=== PATIENT | male | born 1945 | race Caucasian/White ===

== ENCOUNTER 2016-07-25 15:09 | Inpatient (IN) ==
[2016-07-25] MEDS ORDERED: Naloxone 0.4 MG/ML INJ IVP PRN (19:11)
[2016-07-25] MEDS ORDERED: D5% in Water 1,000 ML IVC PRN (19:16)
[2016-07-25] MEDS ORDERED: Dextrose Gel 15 GM PO PRN ×2 (19:16)
--- NOTE | 2016-07-25 19:17 | Internal Med History&Physical ---
Date of Encounter: 07/25/16 Time of Encounter: 19:17 Assessment and Plan (1) NSTEMI (non-ST elevated myocardial infarction) Current visit: Yes Status: Acute 1 patient has been experiencing chest pain off and on for the past 2 days the patient at the [facility]. History of coronary artery disease he states his last cardiac catheter was 10 years ago. He presently is chest pain-free no ST -T wave abnormalities noted on EKG troponin 0.194 second troponin 0.264. Patient does have history of CK D which may contribute t0 troponin elevation however patient is experiencing chest pain has a history of CAD hypertension and diabetes We will continue to cycle cardiac troponins 2 we will initiate heparin drip 3 nitroglycerin as needed for chest pain 4 consult cardiology 5 continuous cardiac monitoring 6 oxygen as needed 7 continue ASA statin BB (2) CKD (chronic kidney disease), stage III Current visit: Yes Status: Acute 1' creatinine is 1.97 unsure of baseline however he was related to when he was at the [facility] we will continue to monitor 2 avoid nephrotoxins 3 monitor intake and output daily weights (3) CHF (congestive heart failure) Current visit: Yes Status: Acute 1 echo obtained last month at the [facility] revealed normal EF with dilated left atrium. We will 2 monitor intake and output daily weights 3 low sodium diet Qualifiers: Congestive heart failure type: unspecified congestive heart failure type Congestive heart failure chronicity: chronic Qualified Code(s): I50.9 - Heart failure, unspecified (4) Diabetes Current visit: Yes Status: Acute 1 Accu-Cheks before meals and at bedtime with sliding scale insulin as well as basal goals maintain postprandial was 180 Qualifiers: Diabetes mellitus type: type 2 Diabetes mellitus complication status: with kidney complications Diabetes mellitus complication detail: with chronic kidney disease Diabetes mellitus usp insulin use: with terminal manager use Chronic kidney disease stage: stage 3 (moderate) Qualified Code(s): E11.22 - Type 2 diabetes mellitus with diabetic chronic kidney disease; N18.3 - Chronic kidney disease, stage 3 (moderate); Z79.4 - terminal clerk (current) use of insulin (5) Hypertension Current visit: No Status: Chronic 1 we will continue with home medications Colestid maintain systolic less than 140 Qualifiers: Hypertension type: essential hypertension Qualified Code(s): I10 - Essential (primary) hypertension (6) DVT prophylaxis Current visit: Yes Status: Acute 1 patient is on heparin drip Internal Medicine - H&P: HPI Chief complaint: Chest pain Admitted From: Hospital to Hospital Transfer Plans for Post Hospital Care: Home History of present illness: Mr. Elliott is a 70 year old male past medical history of hyperlipidemia and GERD CK D3 CHF peripheral vascular disease hypertension diabetes coronary disease. According to the patient he has been experiencing cough and shortness of breath he presented to the [facility] with these complaints. He was admitted and was found to have acute kidney injury potassium of 5 elevated creatinine. Thursday the patient began to experience chest pain he describes as sharp that radiated from his right elbow across his chest his left elbow. He states that pain lasted only 5 minutes and resolved on its own by he experienced chest pain again was midsternal nonradiating sharp pain. It lasted for about 20 minutes and was relieved with nitroglycerin. Cardiac enzymes were obtained and appeared to have elevated this a.m. the patient apparently had an episode of atrial fibrillation. He was transferred to this facility for further workup and evaluation. Presently the patient denies any chest pain or shortness of breath. He does not appear to be in any respiratory distress. Lung sounds are clear heart sounds S1-S2 regular with no clicks gallops murmurs noted he appears to be sinus rhythm on the monitor. He does have +1 pitting edema to lower extremities bilaterally abdomen soft nontender. He states he had a cardiac catheter proximally 10 years ago he has a history of congestive heart failure he did have echo completed at the [facility] one month ago which revealed normal EF and dilated left atrium troponins at the [facility] first was 0.194 and a second was 0.264 He is hemodynamically stable at this time. I reviewed this case with who agrees with plan Past Med Surg Social Fam HX - Past Medical History Medical history: diabetes, hypertension, renal disease Psychiatric history: no psych history - Past Surgical History Surgical History: other - Social History Smoking Status: Never smoker Smokeless Tobacco Status: No Alcohol use: rarely Drug use: none - Additional Family History Additional family history: Reviewed noncontributory Internal Medicine - H&P: Meds 0.9 % Sodium Chloride [Normal Saline Flush] 3 ml IVP BID 07/25/16 [History] Albuterol Sulfate [Albuterol Inhaler] 2 puff IH QID PRN 07/25/16 [History] Amlodipine Besylate 2.5 mg PO DAILY 07/25/16 [History] Aspirin 325 mg PO DAILY 07/25/16 [History] Atorvastatin [Lipitor] 40 mg PO HS 07/25/16 [History] Cetirizine HCl [Zyrtec] 10 mg PO DAILY 07/25/16 [History] Chlorhexidine Gluconate [Peridex] 15 ml MM BID 07/25/16 [History] Dextrose [Glucose] 16 gm PO AD PRN 07/25/16 [History] Enoxaparin [Lovenox] 120 mg SQ Q12HR 07/25/16 [History] Febuxostat [Uloric] 80 mg PO DAILY 07/25/16 [History] Finasteride [Proscar] 5 mg PO DAILY 07/25/16 [History] Folic Acid 1 mg PO DAILY 07/25/16 [History] Furosemide [Lasix] 40 mg PO QPM 07/25/16 [History] Furosemide [Lasix] 80 mg PO QAM 07/25/16 [History] Insulin ASPART [NovoLOG] 12 unit SQ QAM MDD Breakfast 07/25/16 [History] Insulin ASPART [NovoLOG] 15 unit SQ BID MDD Lunch & Dinner 07/25/16 [History] Insulin Glargine [Lantus] 30 unit SQ HS 07/25/16 [History] Insulin Glargine [Lantus] 35 unit SQ QAM 07/25/16 [History] Isosorbide MONOnitrate (24 HR) [Imdur] 30 mg PO DAILY 07/25/16 [History] Latanoprost [Xalatan] 1 drop BOTH EYES HS 07/25/16 [History] Magnesium Oxide [Mag-Ox] 400 mg PO HS 07/25/16 [History] Metoprolol Succinate 100 mg PO DAILY 07/25/16 [History] Mineral Oil/Petrolatum,White [Eucerin Creme] 1 appl TP DAILY 07/25/16 [History] Nitroglycerin [Nitrostat] 0.4 mg SL Q5M PRN 07/25/16 [History] Omeprazole [PriLOSEC] 20 mg PO BIDAC 07/25/16 [History] Sodium Polystyrene Sulfonate [Kayexalate] 15 gm PO BID 07/25/16 [History] Tamsulosin [Flomax] 0.4 mg PO DAILY 07/25/16 [History] methylPREDNISolone [Solu-MEDROL] 60 mg IVP Q6H 07/25/16 [History] Allergies pioglitazone [From Actos] Allergy (Verified 11/23/14 16:34) Swelling of Lip/Tongue/Throat vancomycin Allergy (Verified 11/23/14 16:34) Swelling of Lip/Tongue/Throat All Systems PM: A 10-system review of systems was performed and is negative for pertinent findings except as documented above in the HPI. - Constitutional Constitutional: no chills, no fever(s), no night sweats - Cardiovascular Cardiovascular ROS IM: chest pain, dyspnea, dyspnea on exertion, edema, no diaphoresis, no lightheadedness, no palpitations, no syncope - Respiratory Respiratory: cough, dyspnea on exertion - Gastrointestinal Gastrointestinal: no abdominal pain, no diarrhea, no hematemesis, no hematochezia, no melena, no nausea, no vomiting - Musculoskeletal Musculoskeletal ROS IM: no numbness, no tingling - Integumentary Integumentary IM: no rash, no unusual bruising - Neurological Neurological ROS: no confusion, no convulsions, no focal weakness, no numbness, no tingling, no tremor(s) - Hematologic/Lymphatic Hematologic/Lymphatic: no easy bruising - Constitutional Vitals: Temp Pulse Resp BP Pulse Ox 97.9 F 70 16 162/89 98 07/25/16 17:08 07/25/16 17:08 07/25/16 17:08 07/25/16 17:08 07/25/16 17:08 General appearance: Present: A&O X 3, morbidly obese - Head Head exam: Present: atraumatic, normocephalic - Eye Eye exam: Present: PERRL, conjuntiva pink, sclera anicteric Pupils: Present: PERRL - Neck Neck exam general surgery: Present: supple, trachea midline. Absent: lymphadenopathy - Respiratory Respiratory exam: Present: CTAB. Absent: accessory muscle use, rales, rhonchi, wheezes - Cardiovascular Cardiovascular exam: Present: RRR, +S1, +S2. Absent: diastolic murmur, gallop, rubs, systolic murmur - GI/Abdominal GI/Abdominal exam: Present: normal bowel sounds, soft, no peritoneal signs. Absent: distended, tenderness - Extremities Exam Extremities exam: Present: pedal edema, warm, radial pulses palpable and symetrical. Absent: calf tenderness, cyanotic - Neurological Exam Neurological exam: Present: CN II-XII intact, oriented X3, no focal deficits. Absent: pronater drift, facial droop, speech deficit - Skin Skin exam: Present: dry, intact Internal Med - H&P Results - Labs CBC & Chem 7: 07/25/16 21:36 Labs: [facility] this a.[facility]. CBC daily BC 12.3 hemoglobin 1.8 hematocrit 36.3 platelet is 172 chemistry sodium 144 potassium 4.1 chloride 108 bicarbonate 24 BUN 67 creatinine 1.97 GFR 36 glucose 223 troponin 0.264
[2016-07-25] MEDS ORDERED: *HR* Heparin 5,000 UNIT/ML VIAL IVP ONE (20:26)
[2016-07-25] MEDS ORDERED: *HR* Heparin 5,000 UNIT/ML VIAL IVP PRN ×2 (20:26)
[2016-07-25] MEDS ORDERED: Nitroglycerin 0.4 MG TAB.SUBL SL PRN (20:46)
[2016-07-25 21:44] LABS: Hematocrit 33.8 % (37.5-50.1); Hemoglobin 11.5 g/dL (12.9-16.9); Immature Platelets 2.6 % (1.1-6.1); Mean Corpuscular Hemoglobin 31.6 pg (28.0-33.3); Mean Corpuscular Volume 92.9 fL (83.0-100.0); Mean Platelet Volume 9.9 fL (9.4-12.4); Red Blood Count 3.64 M/mcL (4.19-5.50)
[2016-07-25 21:49] LABS: Prothrombin Time 11.2 Seconds (9.4-12.1)
[2016-07-25 21:52] LABS: Activated Partial Thrombo Time 24.8 Seconds (26.0-36.0)
[2016-07-25] MEDS: Insulin LISPRO 300 UNITS/3 ML VIAL SQ SCH (22:38)
[2016-07-25] MEDS: Heparin 25,000 UNIT/500 ML D5W 25,000 UNIT/500 ML MLS IVC SCH (22:50)
[2016-07-25] MEDS ORDERED: Furosemide 40 MG TABLET PO SCH (23:45)
[2016-07-25] MEDS ORDERED: NON-FORMULARY MEDICATION 1 EACH EACH (Insulin Glargine [Lantus] 30 UNIT) SQ SCH (23:45)
[2016-07-26] MEDS: Insulin DETEMIR 100 UNIT/ML X5UNITS SQ SCH ×3 (00:35→21:16)
[2016-07-26 01:23] LABS: Basophils % 0.1 %; Hematocrit 31.2 % (37.5-50.1); Hemoglobin 10.7 g/dL (12.9-16.9); Immature Granulocytes % 2.2 % (0-4); Lymphocytes # 0.7 K/mcL (0.6-4.6); Lymphocytes % 5.7 %; Mean Corpuscular HGB Conc 34.3 g/dL (31.6-35.5); Mean Corpuscular Hemoglobin 31.8 pg (28.0-33.3); Mean Corpuscular Volume 92.9 fL (83.0-100.0); Mean Platelet Volume 10.4 fL (9.4-12.4); Monocytes # 0.7 K/mcL (0.0-1.3); Monocytes % 5.9 %; Neutrophils # 10.1 K/mcL (1.6-8.9); Nucleated Red Blood Cells 0.2 /100 WBC (0); Platelet Count 171 K/mcL (140-400); Red Blood Count 3.36 M/mcL (4.19-5.50); Red Cell Distribution Width 13.2 % (11.5-14.5); Segmented Neutrophils % 86.1 %
[2016-07-26 01:37] LABS: Calcium 7.7 mg/dL (8.6-10.8); Chol/HDL Ratio 3.3 (0-4.9); Magnesium 1.2 mg/dL (1.6-2.6); Potassium 3.5 mEq/L (3.5-4.5)
[2016-07-26] MEDS: Insulin LISPRO 300 UNITS/3 ML VIAL SQ SCH ×4 (07:42→21:19)
[2016-07-26] MEDS ORDERED: amLODIPine 5 MG TABLET PO SCH (09:00)
[2016-07-26] MEDS ORDERED: NON-FORMULARY MEDICATION 1 EACH EACH (Insulin Glargine [Lantus] 35 UNIT) SQ SCH (09:00)
[2016-07-26] MEDS ORDERED: Furosemide 40 MG TABLET PO SCH (09:00)
--- NOTE | 2016-07-26 09:31 | Internal Med Progress Note ---
Date of Encounter: 07/26/16 Time of Encounter: 09:29 - Assessment and plan (1) Bronchitis Current Visit: Yes Status: Acute Assessment and plan: Patient initially presented with cough and currently does have some mild leukocytosis. It does not appear he was treated with antibiotics while hospitalized at the [facility]. Start IV Levaquin at this time. Chest x-ray shows no evidence of pneumonia. (2) PAF (paroxysmal atrial fibrillation) Current Visit: Yes Status: Acute Assessment and plan: Review of EKGs from [facility] by cardiology showed atrial fibrillation. EKG in our hospital showed sinus rhythm. Cardiology consult appreciated, recommend long- term anticoagulation. Continue IV heparin drip and beta nicolasa for now. Check 2-D echocardiogram, previous reports not available. (3) NSTEMI (non-ST elevated myocardial infarction) Current Visit: Yes Status: Acute Assessment and plan: Patient presents with chest pain along with some troponin elevation. Unclear if he does have chronic kidney disease. Could be non-ST elevation AK versus demand ischemia. Cardiology consult appreciated. Given his multiple cardiac risk factors, plan for left heart catheterization when creatinine is stable after following renal protective strategy. Continue IV hydration. Anticoagulation with IV heparin, aspirin, beta nicolasa and statin. Telemetry monitoring. Serial troponins are currently around 0.2, adynamic. (4) CKD (chronic kidney disease), stage III Current Visit: Yes Status: Chronic Assessment and plan: Patient likely has chronic kidney disease, unknown baseline serum creatinine. Currently noted to be 1.8. Hold diuretics, continue IV hydration and monitor serum creatinine closely. Avoid new nephrotoxic agents. (5) Diabetes Current Visit: Yes Status: Chronic Assessment and plan: Accu-Chek blood glucose monitoring with basal bolus insulin regimen. Check hemoglobin A1c. Diabetic diet. Qualifiers: Diabetes mellitus type: type 2 Diabetes mellitus complication status: with kidney complications Diabetes mellitus complication detail: with chronic kidney disease Diabetes mellitus manager terminal insulin use: with manager terminal use Chronic kidney disease stage: stage 3 (moderate) Qualified Code(s): E11.22 - Type 2 diabetes mellitus with diabetic chronic kidney disease; N18.3 - Chronic kidney disease, stage 3 (moderate); Z79.4 - custodial (current) use of insulin (6) Hypertension Current Visit: Yes Status: Chronic Qualifiers: Hypertension type: essential hypertension Qualified Code(s): I10 - Essential (primary) hypertension (7) Hypomagnesemia Current Visit: Yes Status: Acute Assessment and plan: Likely related to use of diuretics. Supplement with IV magnesium sulfate. Monitor closely for ventricular arrhythmias. - Subjective Interval history: Reports feeling better; has intermittent moist cough; improved chest pain; no dyspnea, diaphoresis; does have chronic leg swelling; - Constitutional Vitals: Temp Pulse Resp BP Pulse Ox 98.4 F 59 18 183/61 96 07/26/16 06:30 07/26/16 06:30 07/26/16 06:30 07/26/16 06:30 07/26/16 06:30 General appearance: Present: A&O X 3, obese, answers questions appropriately - Respiratory Respiratory exam: Present: CTAB. Absent: accessory muscle use, rales, rhonchi, wheezes - Cardiovascular Cardiovascular exam: Present: RRR, +S1, +S2. Absent: diastolic murmur, gallop, rubs, systolic murmur - GI/Abdominal GI/Abdominal exam: Present: normal bowel sounds, soft (obese), no peritoneal signs. Absent: distended, tenderness - Extremities Exam Extremities exam: Present: full ROM, pedal edema, warm, radial pulses palpable and symetrical. Absent: calf tenderness, cyanotic - Neurological Exam Neurological exam: Present: CN II-XII intact, oriented X3, no focal deficits. Absent: pronater drift, facial droop, speech deficit - Skin Skin exam: Present: dry, intact Internal Medicine: Result - Labs CBC & Chem 7: 07/26/16 00:53 07/26/16 00:53 Labs: Short CBC 07/25/16 07/26/16 Range/Units 21:36 00:53 WBC 12.2 H 11.7 H (4.3-11.1) K/mcL Hgb 11.5 L 10.7 L (12.9-16.9) g/dL Hct 33.8 L 31.2 L (37.5-50.1) % Plt Count 192 171 (140-400) K/mcL Neutrophils # 10.1 H (1.6-8.9) K/mcL BMP 07/26/16 00:53 Sodium 140 Potassium 3.5 Chloride 105 Carbon Dioxide 25 BUN 70 H Creatinine 1.82 H Glucose 166 H Calcium 7.7 L Cardiac Enzymes 06/02/17 06/03/17 06/03/17 Range/Units 19:49 00:53 06:25 Troponin I 0.20 H* 0.23 H* 0.22 H* (0-0.03) ng/mL - ABG Interpretation ABG results: PT/INR, D-dimer PT 11.2 Seconds (9.4-12.1) 07/25/16 21:36 - Impressions Impressions Chest X-Ray 07/25/16 20:28 IMPRESSION: No acute disease. D/ / Bárbara Sauer Cha, MD / Bárbara Sauer Cha, MD Interpreting Provider: Bárbara Sauer Cha, MD Consult Discharge Plan - Plan [facility]errals: [facility] Care Provider[facility] -
--- NOTE | 2016-07-26 09:49 | Cardiology Consult Note ---
Date of Encounter: 07/26/16 Time of Encounter: 09:40 Assessment and Plan (1) Elevated troponin Current Visit: Yes Status: Acute Troponins 0.26, 0.20, 0.23, 0.22--flat and adynamic in setting of FINN on CKD, elevated BP, episode of A-Fib. Demand ischemia vs. NSTEMI. Pt reports chest pain intermittently since Thursday. Episode that occurred yesterday was exertional. Reports having LHC approximately 10 years ago at [facility] without intervention. Multiple risk factors including HTN, HLD, DM, family hx of premature CAD. Pt currently on heparin gtt. Continue. No significant EKG changes. [place]16 [place] showed preserved EF, mildly dilated LA. I discussed with pt regarding medical management vs. LHC. R/B/A discussed, including risk of contrast induced nephropathy requiring dialysis. Tele reviewed--11 beat run NSVT. Pt is agreeable to risks of LHC. Recommend continued hydration, monitor renal function over upcoming days and plan for LHC in near future. Will discuss with Dr. Israel with further recommendations to follow. Continue ASA, Statin, BB, nitrates. (2) CKD (chronic kidney disease), stage III Current Visit: Yes Status: Acute Creatinine currently 1.82. Improving. Recent FINN with creatinine as high as 3.40 on 07/22/16. (3) PAF (paroxysmal atrial fibrillation) Current Visit: Yes Status: Acute New diagnosis. Confirmed on EKG at [place]. Currently SR. No evidence of recurrent PAF on tele. CHADSVASC score of at least 3 (Age, HTN, DM). Heparin gtt for now. Will recommend long term care social worker anticoagulation. Determine following potential LHC. Discussion w patient/family: The assessment and plan as outlined above was discussed with the patient and/or family members who expressed understanding and agreement. All questions were answered. Thank you for involving us in the care of your patient. Please call with any questions. I will discuss all the above with Dr. Israel and make changes as necessary. History of Present Illness Consult date: 07/26/16 Requesting physician: Dominik Johnston Consult reason: elevated troponin Chief complaint: chest pain History of present illness: Mr. Elliott is a 70 year old male with PMH of hyperlipidemia, GERD, CKD stage 3, CHF, peripheral vascular disease, hypertension, diabetes that presented in transfer from the [place]. He was admitted to [place] 07/22/16 for acute bronchitis and FINN with creatinine as high as 3.40. According to the patient he presented to the [place] with cough and shortness of breath. Thursday he began to experience chest pain at rest, described as sharp that radiated from his right elbow across his chest his left elbow. He states that pain lasted only 5 minutes and resolved on its own. he experienced the same pain. On Thursday he experienced a different pain that was midsternal, nonradiating, sharp pain that occurred on exertion. It lasted for about 20 minutes. He states he was given 3 nitro and he cannot say whether or not the nitro took the pain away. Troponin found to be elevated at 0.26. There was a reported episode of atrial fibrillation, confirmed on EKG from [place]. No hx of A-Fib previously. Troponins here 0.20, 0.23, 0.22. Pt reports having a LHC 10 years ago without intervention. Reports his father from [place] at age 44 and a brother from [place] in his 40s as well. He reports chronic pain, so it is difficult to determine how long he has been having chest pain. Echo 07/08/16 [place] showed preserved EF with normal wall motion, mildly dilated LA. Past Med Surg Social Fam HX - Past Medical History Medical history: CHF, diabetes, hypertension, renal disease Psychiatric history: no psych history - Past Surgical History Surgical History: other - Social History Smoking Status: Never smoker Smokeless Tobacco Status: No Alcohol use: rarely Drug use: none Medications and Allergies 0.9 % Sodium Chloride [Normal Saline Flush] 3 ml IVP BID 07/25/16 [History] Albuterol Sulfate [Albuterol Inhaler] 2 puff IH QID PRN 07/25/16 [History] Amlodipine Besylate 2.5 mg PO DAILY 07/25/16 [History] Aspirin 325 mg PO DAILY 07/25/16 [History] Atorvastatin [Lipitor] 40 mg PO HS 07/25/16 [History] Cetirizine HCl [Zyrtec] 10 mg PO DAILY 07/25/16 [History] Chlorhexidine Gluconate [Peridex] 15 ml MM BID 07/25/16 [History] Dextrose [Glucose] 16 gm PO AD PRN 07/25/16 [History] Enoxaparin [Lovenox] 120 mg SQ Q12HR 07/25/16 [History] Febuxostat [Uloric] 80 mg PO DAILY 07/25/16 [History] Finasteride [Proscar] 5 mg PO DAILY 07/25/16 [History] Folic Acid 1 mg PO DAILY 07/25/16 [History] Furosemide [Lasix] 40 mg PO QPM 07/25/16 [History] Furosemide [Lasix] 80 mg PO QAM 07/25/16 [History] Insulin ASPART [NovoLOG] 12 unit SQ QAM [facility] Breakfast 07/25/16 [History] Insulin ASPART [NovoLOG] 15 unit SQ BID [facility] Lunch & Dinner 07/25/16 [History] Insulin Glargine [Lantus] 30 unit SQ HS 07/25/16 [History] Insulin Glargine [Lantus] 35 unit SQ QAM 07/25/16 [History] Isosorbide MONOnitrate (24 HR) [Imdur] 30 mg PO DAILY 07/25/16 [History] Latanoprost [Xalatan] 1 drop BOTH EYES HS 07/25/16 [History] Magnesium Oxide [Mag-Ox] 400 mg PO HS 07/25/16 [History] Metoprolol Succinate 100 mg PO DAILY 07/25/16 [History] Mineral Oil/Petrolatum,White [Eucerin Creme] 1 appl TP DAILY 07/25/16 [History] Nitroglycerin [Nitrostat] 0.4 mg SL Q5M PRN 07/25/16 [History] Omeprazole [PriLOSEC] 20 mg PO BIDAC 07/25/16 [History] Sodium Polystyrene Sulfonate [Kayexalate] 15 gm PO BID 07/25/16 [History] Tamsulosin [Flomax] 0.4 mg PO DAILY 07/25/16 [History] methylPREDNISolone [Solu-MEDROL] 60 mg IVP Q6H 07/25/16 [History] Allergies pioglitazone [From Actos] Allergy (Verified 11/23/14 16:34) Swelling of Lip/Tongue/Throat vancomycin Allergy (Verified 11/23/14 16:34) Swelling of Lip/Tongue/Throat All Systems Review: A 10-system review of systems was performed and is negative for pertinent findings except as documented above in the HPI. - Cardiovascular Cardiovascular: as per HPI, chest pain at rest, chest pain with exertion, dyspnea on exertion, radiating jaw, neck or arm pain, leg edema - Respiratory Respiratory: dyspnea Physical Examination Vital Signs, Last 4 Hours Temp Pulse Resp BP Pulse Ox 07/26/16 06:30 98.4 F 59 18 183/61 96 Vital Signs Temp Pulse Resp BP Pulse Ox 07/26/16 06:30 98.4 F 59 18 183/61 96 07/26/16 04:03 98 F 70 18 141/69 95 07/26/16 00:19 98.1 F 70 18 160/74 97 07/25/16 20:27 97.7 F 70 18 177/84 97 07/25/16 19:26 91 18 94 07/25/16 17:08 97.9 F 70 16 162/89 98 Intake and Output 07/25/16 07/26/16 07/26/16 23:59 07:59 15:59 Intake Total 887 / 887 480 / 480 Output Total 1200 / 1200 980 / 980 Balance -1200 / -1200 -93 / -93 480 / 480 Intake: IV Fluids 187 / 187 Heparin 25,000 UNIT/500 187 / 187 ML D5W 25,000 unit In 500 ml @ 20 mls/hr IVC .Q24H [facility] Rx#:[id number] Oral 700 / 700 480 / 480 Output: Urine 1200 / 1200 980 / 980 Other: Meal Breakfast Percent of Meal Consumed 100% Weight 121.648 kg Blood Glucose* 230 116 General: Conversant, No Apparent Distress HEENT: Atraumatic, Normocephaly, Mucus Membranes Moist Neck: No JVD, Normal carotid pulses Cardiac: Reg Rate and Rhythm, Normal S1 and S2, No Murmur Lungs: Normal Breath Sounds, No Wheeze, Rales, Rhonchi Neuro: Alert and responsive, No focal deficits noted Abdomen: Soft, Non-Tender Skin: No rashes noted on visualized skin Musculoskeletal: No Chest Wall Tenderness Extremities: Other (1+ nonpitting edema) Results 07/26/16 00:53 07/26/16 00:53 Lab Results 07/25/16 07/25/16 07/25/16 19:49 21:36 21:36 WBC 12.2 H Hgb 11.5 L Hct 33.8 L Plt Count 192 INR 1.0 APTT 24.8 L Sodium Potassium Chloride Carbon Dioxide BUN Creatinine Glucose Calcium Magnesium Troponin I 0.20 H* 07/26/16 07/26/16 07/26/16 00:53 00:53 00:53 WBC 11.7 H Hgb 10.7 L Hct 31.2 L Plt Count 171 INR APTT Sodium 140 Potassium 3.5 Chloride 105 Carbon Dioxide 25 BUN 70 H Creatinine 1.82 H Glucose 166 H Calcium 7.7 L Magnesium 1.2 L Troponin I 0.23 H* 07/26/16 07/26/16 06:25 06:25 WBC Hgb Hct Plt Count INR APTT 72.9 H D Sodium Potassium Chloride Carbon Dioxide BUN Creatinine Glucose Calcium Magnesium Troponin I 0.22 H* Short CBC 07/26/16 07/25/16 Range/Units 00:53 21:36 WBC 11.7 H 12.2 H (4.3-11.1) K/mcL Hgb 10.7 L 11.5 L (12.9-16.9) g/dL Hct 31.2 L 33.8 L (37.5-50.1) % Plt Count 171 192 (140-400) K/mcL Neutrophils # 10.1 H (1.6-8.9) K/mcL BMP 07/26/16 Range/Units 00:53 Sodium 140 (136-145) mEq/L Potassium 3.5 (3.5-4.5) mEq/L Chloride 105 (98-109) mEq/L Carbon Dioxide 25 (19-29) mEq/L BUN 70 H (8-26) mg/dL Creatinine 1.82 H (0.72-1.25) mg/dL Glucose 166 H (70-99) mg/dL Calcium 7.7 L (8.6-10.8) mg/dL Cardiac Enzymes 07/26/16 07/26/16 07/25/16 Range/Units 06:25 00:53 19:49 Troponin I 0.22 H* 0.23 H* 0.20 H* (0-0.03) ng/mL Impressions Chest X-Ray 07/25/16 20:28 IMPRESSION: No acute disease. D/ / Bárbara Sauer Cha, MD / Bárbara Sauer Cha, MD Interpreting Provider: Bárbara Sauer Cha, MD Active Medications Amlodipine Besylate (Norvasc) 2.5 mg PO DAILY [facility] Stop: 01/25/17 09:01 Aspirin (Aspirin) 325 mg PO DAILY [facility] Stop: 01/25/17 09:01 Atorvastatin Calcium (Lipitor) 40 mg PO HS [facility] Stop: 01/25/17 21:01 Dextrose/Water (Dextrose 50% (Syg)) 25 ml IVP AD PRN PRN Reason: Hypoglycemia Stop: 01/24/17 19:17 Finasteride (Proscar) 5 mg PO DAILY [facility] PRN Reason: Protocol Stop: 01/25/17 09:01 Furosemide (Lasix) 40 mg PO QPM [facility] Stop: 01/24/17 23:46 Last Admin: 07/26/16 00:35 Dose: 40 mg Furosemide (Lasix) 80 mg PO QAM [facility] Stop: 01/25/17 09:01 Glucagon (Glucagen) 1 mg IM ONCE PRN PRN Reason: Hypoglycemia Stop: 01/24/17 19:17 Glucose (Gluctose) 15 gm PO ONCE PRN PRN Reason: Hypoglycemia Stop: 01/24/17 19:17 Glucose (Gluctose) 30 gm PO ONCE PRN PRN Reason: Hypoglycemia Stop: 01/24/17 19:17 Heparin Sodium (Porcine) (Heparin) 4,000 unit IVP Q6HR PRN PRN Reason: SEE COMMENTS Stop: 01/24/17 20:27 Heparin Sodium (Porcine) (Heparin) 2,000 unit IVP Q6H PRN PRN Reason: SEE COMMENTS Stop: 01/24/17 20:27 Dextrose (Dextrose 5%) 1,000 mls @ 100 mls/hr IVC .Q10H PRN PRN Reason: HYPOGLYCEMIA Stop: 01/24/17 19:17 Heparin Sodium/Dextrose (Heparin 25,000 Unit/500 Ml D5w) 25,000 unit in 500 mls @ 20 mls/hr IVC .Q24H [facility] PRN Reason: Protocol Stop: 01/24/17 20:31 Last Titration: 07/26/16 07:14 Dose: 20 mls/hr, 20 mls/hr Levofloxacin/Dextrose (Levaquin Premix 500mg/100ml) 500 mg in 100 mls @ 100 mls /hr IVPB Q48H [facility] PRN Reason: Protocol Stop: 01/25/17 10:01 Insulin Detemir (Levemir) 30 unit SQ HS [facility] Stop: 01/24/17 23:46 Last Admin: 07/26/16 00:35 Dose: 30 unit Insulin Detemir (Levemir) 35 unit SQ QAM [facility] Stop: 01/25/17 09:01 Insulin Human Lispro (Humalog) 0 units SQ HS [facility] PRN Reason: Protocol Stop: 01/24/17 21:01 Last Admin: 07/25/16 22:38 Dose: 3 units Insulin Human Lispro (Humalog) 0 units SQ TIDAC [facility] PRN Reason: Protocol Stop: 01/25/17 07:31 Last Admin: 07/26/16 07:42 Dose: Not Given Isosorbide Mononitrate (Imdur) 30 mg PO DAILY [facility] Stop: 01/25/17 09:01 Loratadine (Claritin) 10 mg PO DAILY [facility] Stop: 01/25/17 09:01 Metoprolol Succinate (Toprol Xl) 100 mg PO DAILY [facility] Stop: 01/25/17 09:01 Naloxone HCl (Narcan) 0.4 mg IVP Q2MIN PRN PRN Reason: Opioid Reversal Stop: 01/24/17 19:12 Nitroglycerin (Nitroglycerin) 0.4 mg SL Q5MIN PRN PRN Reason: Chest Pain Stop: 01/24/17 20:47 Tamsulosin HCl (Flomax) 0.4 mg PO HS [facility] PRN Reason: Protocol Stop: 01/25/17 21:01 - Imaging and Cardiology Echo: report reviewed - EKG Interpretation EKG results cardiology: personally reviewed (SR with no significant changes noted. [facility].), other (24 hour tele AVG HR 66, SR, 11 beat run NSVT) Consult Discharge Plan - Plan Referrals: [facility],PC[facility] [Primary Care Provider] -
[2016-07-26] MEDS: Isosorbide MONOnitrate (24 HR) 30 MG TAB.ER.24H PO SCH (10:35)
[2016-07-26] MEDS: Metoprolol XL (24 HR) Succ 50 MG TAB.ER.24H PO SCH (10:35)
[2016-07-26] MEDS: Aspirin 325 MG TABLET PO SCH (10:35)
[2016-07-26] MEDS: Loratadine 10 MG TABLET PO SCH (10:35)
[2016-07-26] MEDS: Finasteride 5 MG TABLET PO SCH (10:36)
[2016-07-26] MEDS: Levofloxacin 500 MG/100 ML 500 MG/100 ML BAG IVPB SCH (11:33)
[2016-07-26] MEDS ORDERED: Magnesium Sulfate 2 GM in D5% in Water 100 ML IVPB ONE (14:20)
[2016-07-26] MEDS: Heparin 25,000 UNIT/500 ML D5W 25,000 UNIT/500 ML MLS IVC SCH (21:28)
[2016-07-27 04:57] LABS: Basophils # 0.1 K/mcL (0.0-0.2); Basophils % 0.6 %; Eosinophils # 0.1 K/mcL (0.0-0.6); Eosinophils % 1.1 %; Hematocrit 33.4 % (37.5-50.1); Hemoglobin 11.5 g/dL (12.9-16.9); Immature Granulocytes % 3.9 % (0-4); Lymphocytes # 2.1 K/mcL (0.6-4.6); Lymphocytes % 23.5 %; Mean Corpuscular HGB Conc 34.4 g/dL (31.6-35.5); Mean Corpuscular Hemoglobin 32.1 pg (28.0-33.3); Mean Corpuscular Volume 93.3 fL (83.0-100.0); Mean Platelet Volume 10.5 fL (9.4-12.4); Neutrophils # 5.4 K/mcL (1.6-8.9); Nucleated Red Blood Cells 0.2 /100 WBC (0); Platelet Count 149 K/mcL (140-400); Red Blood Count 3.58 M/mcL (4.19-5.50); Segmented Neutrophils % 59.9 %
[2016-07-27 05:11] LABS: Calcium 7.6 mg/dL (8.6-10.8); Magnesium 1.6 mg/dL (1.6-2.6); Potassium 3.4 mEq/L (3.5-4.5)
[2016-07-27] MEDS: *HR* Dextrose 50 % in Water (Syg) 50 ML SYRINGE IVP PRN (06:05)
[2016-07-27] MEDS ORDERED: Potassium Chloride Elixir 20 MEQ/15 ML UDC PO ONE (08:21)
[2016-07-27] MEDS ORDERED: 0.9 % Sodium Chloride 1,000 ML IVC SCH (08:30)
[2016-07-27] MEDS: Insulin LISPRO 300 UNITS/3 ML VIAL SQ SCH ×4 (08:51→21:43)
[2016-07-27] MEDS: Loratadine 10 MG TABLET PO SCH (09:02)
[2016-07-27] MEDS: Insulin DETEMIR 100 UNIT/ML X5UNITS SQ SCH (09:03)
[2016-07-27] MEDS: Isosorbide MONOnitrate (24 HR) 30 MG TAB.ER.24H PO SCH (09:03)
[2016-07-27] MEDS: Finasteride 5 MG TABLET PO SCH (09:03)
[2016-07-27] MEDS: Metoprolol XL (24 HR) Succ 50 MG TAB.ER.24H PO SCH (09:03)
[2016-07-27] MEDS: Aspirin 325 MG TABLET PO SCH (09:03)
[2016-07-27] MEDS: amLODIPine 5 MG TABLET PO SCH (09:03)
--- NOTE | 2016-07-27 09:11 | Internal Med Progress Note ---
Date of Encounter: 07/27/16 Time of Encounter: 08:40 - Assessment and plan (1) Bronchitis Current Visit: Yes Status: Acute Assessment and plan: Improved cough and it is all leukocytosis. Continue IV Levaquin. Chest x-ray shows no evidence of pneumonia. (2) PAF (paroxysmal atrial fibrillation) Current Visit: Yes Status: Acute Assessment and plan: Review of EKGs from [place] by cardiology showed atrial fibrillation. EKG in our hospital showed sinus rhythm. Cardiology follow-up appreciated, recommend long- term anticoagulation after discussion regarding left heart catheterization. Continue IV heparin drip and beta nicolasa for now. Echocardiogram reviewed, shows preserved ejection fraction, mild concentrate left ventricular hypertrophy , mild left ventricular diastolic dysfunction, moderate to severe left atrial dilation. (3) NSTEMI (non-ST elevated myocardial infarction) Current Visit: Yes Status: Acute Assessment and plan: Patient presents with chest pain along with some troponin elevation. Could be non-ST elevation HI versus demand ischemia. Cardiology follow-up appreciated. Would benefit from left heart catheterization when creatinine is stable after following renal protective strategy. Continue IV hydration. Anticoagulation with IV heparin, aspirin, beta nicolasa and statin. Telemetry monitoring. (4) CKD (chronic kidney disease), stage III Current Visit: Yes Status: Chronic Assessment and plan: Patient likely has chronic kidney disease, unknown baseline serum creatinine. Serum creatinine noted to be slightly worsening, 2.1 today. Continue to Hold diuretics, continue IV hydration and monitor serum creatinine closely. Avoid new nephrotoxic agents. (5) Diabetes Current Visit: Yes Status: Chronic Assessment and plan: Accu-Chek blood glucose monitoring with basal bolus insulin regimen. Had an episode of hypoglycemia with blood sugar in the 50s this morning, will decrease nighttime dose of basal insulin. Check hemoglobin A1c. Diabetic diet. 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 - Subjective Interval history: Sitting up in chair; reports feeling well; no chest pain, dyspnea; persistent leg swelling even at baseline. - Constitutional Vitals: Temp Pulse Resp BP Pulse Ox 97.5 F L 58 18 172/72 97 07/27/16 06:31 07/27/16 06:31 07/27/16 06:31 07/27/16 06:31 07/27/16 06:31 General appearance: Present: A&O X 3, morbidly obese, answers questions appropriately - Respiratory Respiratory exam: Present: CTAB. Absent: accessory muscle use, rales, rhonchi, wheezes - Cardiovascular Cardiovascular exam: Present: RRR, +S1, +S2. Absent: diastolic murmur, gallop, rubs, systolic murmur - GI/Abdominal GI/Abdominal exam: Present: normal bowel sounds, soft, no peritoneal signs. Absent: distended, tenderness - Extremities Exam Extremities exam: Present: pedal edema, warm, radial pulses palpable and symetrical. Absent: calf tenderness, cyanotic Internal Medicine: Result - Labs CBC & Chem 7: 07/27/16 04:07 07/27/16 04:07 Labs: Short CBC 07/27/16 Range/Units 04:07 WBC 9.0 (4.3-11.1) K/mcL Hgb 11.5 L (12.9-16.9) g/dL Hct 33.4 L (37.5-50.1) % Plt Count 149 (140-400) K/mcL Neutrophils # 5.4 (1.6-8.9) K/mcL BMP 07/27/16 04:07 Sodium 139 Potassium 3.4 L Chloride 103 Carbon Dioxide 27 BUN 70 H Creatinine 2.13 H Glucose 68 L Calcium 7.6 L - ABG Interpretation ABG results: PT/INR, D-dimer PT 11.2 Seconds (9.4-12.1) 07/25/16 21:36 Consult Discharge Plan - Plan [facility]errals: [facility] [Primary Care Provider] -
--- NOTE | 2016-07-27 09:53 | Cardiology Progress Note ---
Date of Encounter: 07/27/16 Time of Encounter: 09:51 Assessment and Plan (1) Elevated troponin Current Visit: Yes Status: Acute Troponins 0.26, 0.20, 0.23, 0.22--flat and adynamic in setting of FINN on CKD, elevated BP, episode of A-Fib. Demand ischemia vs. NSTEMI. Pt reports chest pain intermittently since Thursday. Multiple risk factors including HTN, HLD, DM, family hx of premature CAD. Pt currently on heparin gtt. Continue. No significant EKG changes. Echo EF 60-65%, mild concentric LVH, mild diastolic dysfunction, moderate- severely dilated left atrium. I discussed with pt regarding medical management vs. LHC. R/B/A discussed, including risk of contrast induced nephropathy requiring dialysis. Pt is agreeable to risks of LHC. Creatinine worsened today--2.13 from 1.82. Recommend continued hydration, check renal function in AM to determine if able to proceed with LHC. Continue ASA, Statin, BB, nitrates. Continue to follow. (2) CKD (chronic kidney disease), stage III Current Visit: Yes Status: Chronic Creatinine worsened from yesterday--2.13 from 1.82. FINN with creatinine as high as 3.40 on 07/22/16. Will give IV hydration. (3) PAF (paroxysmal atrial fibrillation) Current Visit: Yes Status: Acute New diagnosis. Confirmed on EKG at [place]. Currently SR. No evidence of recurrent PAF on tele. CHADSVASC score of at least 3 (Age, HTN, DM). Heparin gtt for now. Will discuss need for fci anticoagulation following potential LHC. Discussion w patient/family: The assessment and plan as outlined above was discussed with the patient and/or family members who expressed understanding and agreement. All questions were answered. Thank you for involving us in the care of your patient. Please call with any questions. I will discuss all the above with Dr. Israel and make changes as necessary. Subjective Principal diagnosis: Chest pain, elevated troponin, CKD Interval history: Pt reports episode of chest pain this AM that lasted minutes and resolved on its own. Echo shows preserved EF 60-65%, mild concentric LVH, mild diastolic dysfunction, moderate-severely dilated left atrium. Creatinine worsened today-- 2.13, was 1.82 yesterday. Objective Vital Signs, Last 4 Hours Temp Pulse Resp BP Pulse Ox 06/04/17 06:31 97.5 F L 58 18 172/72 97 Vital Signs Temp Pulse Resp BP Pulse Ox 07/27/16 06:31 97.5 F L 58 18 172/72 97 07/27/16 04:13 97.7 F 62 16 155/56 94 07/27/16 00:11 98.5 F 60 16 175/70 07/26/16 19:28 98.4 F 60 16 153/68 97 07/26/16 15:28 98.4 F 60 18 172/73 94 07/26/16 10:38 98.3 F 62 18 135/56 95 Intake and Output 07/26/16 07/27/16 07/27/16 23:59 07:59 15:59 Intake Total 877 / 877 0 / 0 360 / 360 Output Total 850 / 850 1000 / 1000 Balance -1000 / -1000 360 / 360 Intake: IV Fluids 177 / 177 Heparin 25,000 UNIT/500 177 / 177 ML D5W 25,000 unit In 500 ml @ 20 mls/hr IVC .Q24H [facility] Rx#:[id number] Oral 700 / 700 0 / 0 360 / 360 Output: Urine 850 / 850 1000 / 1000 Other: Meal Breakfast Percent of Meal Consumed 100% Weight 128.423 kg 127.913 kg Blood Glucose* 157 83 Patient Weight 07/27/16 23:59 Weight 127.913 kg General: Conversant, No Apparent Distress HEENT: Atraumatic, Normocephaly, Mucus Membranes Moist Neck: No JVD, Normal carotid pulses Cardiac: Reg Rate and Rhythm, Normal S1 and S2, No Murmur Lungs: Normal Breath Sounds, No Wheeze, Rales, Rhonchi Neuro: Alert and responsive, No focal deficits noted Abdomen: Soft, Non-Tender Skin: No rashes noted on visualized skin Musculoskeletal: No Chest Wall Tenderness Extremities: Other (1+ nonpitting LE edema) Results 07/27/16 04:07 07/27/16 04:07 Lab Results 07/26/16 07/27/16 07/27/16 13:25 04:07 04:07 WBC 9.0 Hgb 11.5 L Hct 33.4 L Plt Count 149 APTT 59.8 H Sodium 139 Potassium 3.4 L Chloride 103 Carbon Dioxide 27 BUN 70 H Creatinine 2.13 H Glucose 68 L Calcium 7.6 L Magnesium 1.6 Short CBC 07/27/16 Range/Units 04:07 WBC 9.0 (4.3-11.1) K/mcL Hgb 11.5 L (12.9-16.9) g/dL Hct 33.4 L (37.5-50.1) % Plt Count 149 (140-400) K/mcL Neutrophils # 5.4 (1.6-8.9) K/mcL BMP 07/27/16 Range/Units 04:07 Sodium 139 (136-145) mEq/L Potassium 3.4 L (3.5-4.5) mEq/L Chloride 103 (98-109) mEq/L Carbon Dioxide 27 (19-29) mEq/L BUN 70 H (8-26) mg/dL Creatinine 2.13 H (0.72-1.25) mg/dL Glucose 68 L (70-99) mg/dL Calcium 7.6 L (8.6-10.8) mg/dL Active Medications Amlodipine Besylate (Norvasc) 5 mg PO DAILY [facility] Stop: 01/25/17 08:26 Last Admin: 07/27/16 09:03 Dose: 5 mg Aspirin (Aspirin) 325 mg PO DAILY [facility] Stop: 01/25/17 09:01 Last Admin: 07/27/16 09:03 Dose: 325 mg Atorvastatin Calcium (Lipitor) 40 mg PO HS [facility] Stop: 01/25/17 21:01 Last Admin: 07/26/16 21:16 Dose: 40 mg Dextrose/Water (Dextrose 50% (Syg)) 25 ml IVP AD PRN PRN Reason: Hypoglycemia Stop: 01/24/17 19:17 Last Admin: 07/27/16 06:05 Dose: 25 ml Finasteride (Proscar) 5 mg PO DAILY [facility] PRN Reason: Protocol Stop: 01/25/17 09:01 Last Admin: 07/27/16 09:03 Dose: 5 mg Glucagon (Glucagen) 1 mg IM ONCE PRN PRN Reason: Hypoglycemia Stop: 01/24/17 19:17 Glucose (Gluctose) 15 gm PO ONCE PRN PRN Reason: Hypoglycemia Stop: 01/24/17 19:17 Glucose (Gluctose) 30 gm PO ONCE PRN PRN Reason: Hypoglycemia Stop: 01/24/17 19:17 Heparin Sodium (Porcine) (Heparin) 4,000 unit IVP Q6HR PRN PRN Reason: SEE COMMENTS Stop: 01/24/17 20:27 Heparin Sodium (Porcine) (Heparin) 2,000 unit IVP Q6H PRN PRN Reason: SEE COMMENTS Stop: 01/24/17 20:27 Hydralazine HCl (Hydralazine) 25 mg PO Q8HR [facility] Stop: 01/26/17 16:01 Dextrose (Dextrose 5%) 1,000 mls @ 100 mls/hr IVC .Q10H PRN PRN Reason: HYPOGLYCEMIA Stop: 01/24/17 19:17 Heparin Sodium/Dextrose (Heparin 25,000 Unit/500 Ml D5w) 25,000 unit in 500 mls @ 20 mls/hr IVC .Q24H [facility] PRN Reason: Protocol Stop: 01/24/17 20:31 Last Admin: 07/26/16 21:28 Dose: 20 mls/hr, 20 mls/hr Levofloxacin/Dextrose (Levaquin Premix 500mg/100ml) 500 mg in 100 mls @ 100 mls /hr IVPB Q48H [facility] PRN Reason: Protocol Stop: 01/25/17 10:01 Last Admin: 07/26/16 11:33 Dose: 100 mls/hr Sodium Chloride (0.9 % Sodium Chloride) 1,000 mls @ 60 mls/hr IVC .[id number] [facility] Stop: 07/28/16 01:09 Last Admin: 07/27/16 09:03 Dose: 60 mls/hr Insulin Detemir (Levemir) 30 unit SQ HS [facility] Stop: 01/24/17 23:46 Last Admin: 07/26/16 21:16 Dose: 30 unit Insulin Detemir (Levemir) 35 unit SQ QAM [facility] Stop: 01/25/17 09:01 Last Admin: 07/27/16 09:03 Dose: 35 unit Insulin Human Lispro (Humalog) 0 units SQ HS [facility] PRN Reason: Protocol Stop: 01/24/17 21:01 Last Admin: 07/26/16 21:19 Dose: Not Given Insulin Human Lispro (Humalog) 0 units SQ TIDAC [facility] PRN Reason: Protocol Stop: 01/25/17 07:31 Last Admin: 07/27/16 08:51 Dose: Not Given Isosorbide Mononitrate (Imdur) 30 mg PO DAILY [facility] Stop: 01/25/17 09:01 Last Admin: 07/27/16 09:03 Dose: 30 mg Loratadine (Claritin) 10 mg PO DAILY [facility] Stop: 01/25/17 09:01 Last Admin: 07/27/16 09:02 Dose: 10 mg Metoprolol Succinate (Toprol Xl) 100 mg PO DAILY [facility] Stop: 01/25/17 09:01 Last Admin: 07/27/16 09:03 Dose: Not Given Naloxone HCl (Narcan) 0.4 mg IVP Q2MIN PRN PRN Reason: Opioid Reversal Stop: 01/24/17 19:12 Nitroglycerin (Nitroglycerin) 0.4 mg SL Q5MIN PRN PRN Reason: Chest Pain Stop: 01/24/17 20:47 Tamsulosin HCl (Flomax) 0.4 mg PO HS [facility] PRN Reason: Protocol Stop: 01/25/17 21:01 Last Admin: 07/26/16 21:16 Dose: 0.4 mg - Imaging and Cardiology Echo: report reviewed - EKG Interpretation EKG results cardiology: other (24 hour tele AVG HR 60--no significant pauses or arrhythmias noted.) Consult Discharge Plan - Plan [facility]errals: [facility] [Primary Care Provider] -
[2016-07-27] MEDS ORDERED: Magnesium Sulfate 2 GM in D5% in Water 100 ML IVPB ONE (10:09)
[2016-07-27] MEDS: 0.9 % Sodium Chloride 1,000 ML IVC SCH (11:57)
[2016-07-27] MEDS: hydrALAZINE 25 MG TABLET PO SCH (16:37)
[2016-07-27] MEDS ORDERED: Insulin DETEMIR 100 UNIT/ML X5UNITS SQ SCH (21:00)
[2016-07-27] MEDS: Heparin 25,000 UNIT/500 ML D5W 25,000 UNIT/500 ML MLS IVC SCH (21:43)
[2016-07-28] MEDS: hydrALAZINE 25 MG TABLET PO SCH ×4 (00:08→16:54)
[2016-07-28] MEDS: 0.9 % Sodium Chloride 1,000 ML IVC SCH ×2 (00:09→21:59)
[2016-07-28 05:59] LABS: Hemoglobin A1C 7.9 %
[2016-07-28 06:01] LABS: Calcium 7.7 mg/dL (8.6-10.8); Magnesium 1.8 mg/dL (1.6-2.6); Potassium 3.9 mEq/L (3.5-4.5)
[2016-07-28 06:23] LABS: Thyroid Stimulating Hormone 2.447 mcIU/mL (0.350-4.840)
[2016-07-28 06:30] LABS: Heparin anti-factor XA UFH 1.08 IU/mL (0.30-0.70)
[2016-07-28] MEDS: *HR* Dextrose 50 % in Water (Syg) 50 ML SYRINGE IVP PRN (07:42)
--- NOTE | 2016-07-28 08:04 | Electrocardiograph Report ---
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
[2016-07-28] MEDS: Insulin LISPRO 300 UNITS/3 ML VIAL SQ SCH ×4 (08:27→22:25)
[2016-07-28] MEDS: Aspirin 325 MG TABLET PO SCH (08:28)
[2016-07-28] MEDS: Finasteride 5 MG TABLET PO SCH (08:28)
[2016-07-28] MEDS: Loratadine 10 MG TABLET PO SCH (08:29)
[2016-07-28] MEDS: Isosorbide MONOnitrate (24 HR) 30 MG TAB.ER.24H PO SCH ×2 (08:29→12:33)
[2016-07-28] MEDS: Levofloxacin 500 MG/100 ML 500 MG/100 ML BAG IVPB SCH (08:30)
[2016-07-28] MEDS: Metoprolol XL (24 HR) Succ 50 MG TAB.ER.24H PO SCH (08:30)
[2016-07-28] MEDS: Insulin DETEMIR 100 UNIT/ML X5UNITS SQ SCH (08:30)
[2016-07-28] MEDS: amLODIPine 5 MG TABLET PO SCH (08:30)
[2016-07-28] MEDS ORDERED: Albuterol 2.5 MG/3 ML NEBULIZER IH PRN (09:04)
--- NOTE | 2016-07-28 09:04 | Internal Med Progress Note ---
Date of Encounter: 07/28/16 Time of Encounter: 09:02 - Assessment and plan (1) Bronchitis Current Visit: Yes Status: Acute Assessment and plan: Improve; Continue IV Levaquin- day 3, to be stopped after 5 days of therapy. PRN bronchodilators. Chest x-ray shows no evidence of pneumonia. (2) PAF (paroxysmal atrial fibrillation) Current Visit: Yes Status: Acute Assessment and plan: Review of EKGs from ID by cardiology showed atrial fibrillation. EKG in our hospital showed sinus rhythm. Cardiology follow-up appreciated, recommend long- term anticoagulation; has been on IV heparin drip. Plan for oral anticoagulation after left heart catheterization today. Continue beta nicolasa for now. Echocardiogram shows preserved ejection fraction, mild concentrate left ventricular hypertrophy, mild left ventricular diastolic dysfunction, moderate to severe left atrial dilation. (3) NSTEMI (non-ST elevated myocardial infarction) Current Visit: Yes Status: Acute Assessment and plan: Patient presents with chest pain along with some troponin elevation. Could be non-ST elevation CA versus demand ischemia. Cardiology follow-up appreciated. Plan for left heart catheterization today, will follow report. Serum creatinine noted to be improving with IV hydration. Continue IV hydration. Anticoagulation with IV heparin, aspirin, beta nicolasa and statin. Telemetry monitoring. (4) CKD (chronic kidney disease), stage III Current Visit: Yes Status: Chronic Assessment and plan: Patient likely has chronic kidney disease, unknown baseline serum creatinine. Serum creatinine noted to be improving, 1.7 today. Plan to discontinue IV hydration after left heart catheterization. Continue to Hold diuretics, and monitor serum creatinine closely. Avoid new nephrotoxic agents. (5) Diabetes Current Visit: Yes Status: Chronic Assessment and plan: Accu-Chek blood glucose monitoring with basal bolus insulin regimen. Continues to have fasting hypoglycemia, we will hold basal insulin for now. Hemoglobin A1c noted to be 7.9%. Diabetic diet. Qualifiers: Diabetes mellitus type: type 2 Diabetes mellitus complication status: with kidney complications Diabetes mellitus complication detail: with chronic kidney disease Diabetes mellitus shelter insulin use: with intermission coordinator use Chronic kidney disease stage: stage 3 (moderate) Qualified Code(s): E11.22 - Type 2 diabetes mellitus with diabetic chronic kidney disease; N18.3 - Chronic kidney disease, stage 3 (moderate); Z79.4 - group home (current) use of insulin (6) Hypertension Current Visit: Yes Status: Chronic Qualifiers: Hypertension type: essential hypertension Qualified Code(s): I10 - Essential (primary) hypertension (7) Hypomagnesemia Current Visit: Yes Status: Resolved - Subjective Interval history: No chest pain or dyspnea but reports weakness due to low blood sugar reading this morning; worsening lef swelling; plan for heart cath today; on IV Heparin drip; - Constitutional Vitals: Temp Pulse Resp BP Pulse Ox 97.6 F 61 16 113/49 95 07/28/16 07:23 07/28/16 07:23 07/28/16 07:23 07/28/16 07:23 07/28/16 07:23 General appearance: Present: A&O X 3, morbidly obese, answers questions appropriately - Respiratory Respiratory exam: Present: wheezes (end-expiratory wheezing). Absent: accessory muscle use, rales, rhonchi - Cardiovascular Cardiovascular exam: Present: RRR, +S1, +S2. Absent: diastolic murmur, gallop, rubs, systolic murmur - GI/Abdominal GI/Abdominal exam: Present: normal bowel sounds, soft (obese), no peritoneal signs. Absent: distended, tenderness - Extremities Exam Extremities exam: Present: full ROM, pedal edema (3+ pitting tense peda edema B/ L), warm, radial pulses palpable and symetrical. Absent: calf tenderness, cyanotic - Neurological Exam Neurological exam: Present: CN II-XII intact, oriented X3, no focal deficits. Absent: pronater drift, facial droop, speech deficit Internal Medicine: Result - Labs CBC & Chem 7: 07/27/16 04:07 07/28/16 05:38 Labs: BMP 07/28/16 05:38 Sodium 139 Potassium 3.9 Chloride 109 Carbon Dioxide 25 BUN 62 H Creatinine 1.69 H Glucose 58 L Calcium 7.7 L - ABG Interpretation ABG results: PT/INR, D-dimer PT 11.2 Seconds (9.4-12.1) 07/25/16 21:36 Consult Discharge Plan - Plan [facility]errals: [facility] [Primary Care Provider[facility] -
--- NOTE | 2016-07-28 09:12 | Event Note ---
Date of Encounter: 07/28/16 Time of Encounter: 09:07 - Cardiology Event Note Renal function improved. Creatinine 1.69 today, improved from 2.13 yesterday. R/ B/A of LHC further discussed, including risk of contrast induced nephropathy. Pt agrees to proceed--elevated troponin, chest pain, multiple risk factors. Plan for C today.
[2016-07-28] MEDS ORDERED: Verapamil 5 MG/2 ML VIAL ONE (09:31)
[2016-07-28] MEDS ORDERED: Nitroglycerin 1,000 MCG/10 ML VIAL IV ONE (09:32)
[2016-07-28] MEDS ORDERED: *HR* Heparin 10,000 UNIT/10 ML VIAL ONE (09:32)
[2016-07-28] MEDS ORDERED: 0.9 % Sodium Chloride 1,000 ML ONE ×2 (09:32→09:57)
[2016-07-28] MEDS ORDERED: Heparin 1,000 UNITS/500 mL NS 500 ML ONE (09:32)
[2016-07-28] MEDS ORDERED: *HR* FentaNYL (PF) 100 MCG/2 ML VIAL ONE (09:57)
[2016-07-28] MEDS ORDERED: *HR* Midazolam HCl 5 MG/5 ML VIAL IVP ONE (09:57)
--- NOTE | 2016-07-28 10:33 | Pre-Sedation Evaluation ---
Pre-sedation evaluation - Pre-sedation checklist Date of procedure: 07/28/16 Procedure: lhc Recent Vitals: Last Vital Signs Temp 97.6 F 07/28/16 07:23 Pulse 61 07/28/16 07:23 Resp 16 07/28/16 07:23 BP 113/49 07/28/16 07:23 Pulse Ox 95 07/28/16 07:23 H&P (including ROS) documented in medical record: Yes Previous reaction to sedatives/anesthetics: No Dietary Status: NPO after Midnight ASA Classification *see protocol: CLASS II-Mild systemic disease Plan of Care: Pt appropriate candidate for procedure/moderate/conscious sedation , Risks/benefits of procedure/sedation discussed w/ patient/family
[2016-07-28] MEDS ORDERED: Tirofiban 12.5 MG/250ML 12.5 MG/250 ML BAG ONE (10:56)
[2016-07-28] MEDS ORDERED: *HR* Ticagrelor 90 MG TABLET ONE (11:06)
[2016-07-28] MEDS ORDERED: Ondansetron 4 MG/2 ML VIAL IVP PRN (11:17)
[2016-07-28] MEDS ORDERED: Tirofiban 12.5 MG/250ML 12.5 MG/250 ML BAG IVC SCH (11:30)
--- NOTE | 2016-07-28 11:38 | Invasive Diagnostic Lab Proc ---
Name: Vinod Elliott Date of Study: 07/28/2016 Date: 1945 Ht: 69.0in Medical Record#: [id number] Age: 70 Wt: 286.60lb Gender: Male BSA: 2.41 Order #: [id number] BMI: 42.3 Physicians Procedure Physician: Clint Junior MD, [facility] Referring MD: Referring MD: Staff Name Position Time In Mia Lawrence RT (R) Scrub 10:12 AM Adriana Lindquist RN Assistant Corporate Controller 10:12 AM Christine Gregorio RN Nurse 10:12 AM Bisi Baker RT (R) Monitor 10:12 AM Indications Indication Non-Stemi Procedures Performed Procedure L HRT ARTERY/VENTRICLE ANGIO PRQ CARD LEA STENT W/ANGIO 1 VSL Pre-Procedure Checklist Informed consent is complete signed and on chart. H\\T\\P is on chart. ID band is on and ID verified with patient. Patient NPO for procedure The procedure was described for the patient and questions were answered. Blood Pressure: 113/49 ECG is on chart. Plan of Care Patient will tolerate the procedure without complications. Adequate level of comfort will be maintained. Hemodynamics will remain stable Patient will recover from procedure without complications. Respiratory function will be maintained. Cardiac rhythm will remain stable. Patient temperature will be maintained. Patient and/or family have verbalized understanding of the procedure. Patient Education Chief Complaint/Reason for Test: Cardiac Cath Developmental Category: Geriatric (65+ years) Developmentally Appropriate for Age: Yes Learning Barriers: None Education Needs: Procedure Education Method: Verbal Information Taught: Cardiac Cath Educational Evaluation: Able to repeat information Intravenous Access Time IV Size Location DC'd Fluid/Drip Rate Units RN 09:28 AM 22g 1" Patent On Arrival Rt Antecubital 0.9NaCl 25 ml/hr Adriana Lindquist RN Allergies pioglitazone vancomycin Vital Signs Time BP (mmHg) HR (bpm) O2 Sat. RR (bpm) LOC 09:29 AM 113 / 49 61 95 % 16 5 = Fully awake and oriented or at pre-proc level 10:12 AM / % 5 = Fully awake and oriented or at pre-proc level 10:12 AM / % 5 = Fully awake and oriented or at pre-proc level 10:38 AM / % 4 = Oriented but drowsy 10:38 AM / % 4 = Oriented but drowsy 10:53 AM / % 4 = Oriented but drowsy 10:15 AM 153 / 92 65 100 % 17 10:20 AM 158 / 67 57 99 % 26 10:26 AM 157 / 69 52 100 % 14 10:31 AM 158 / 64 56 100 % 16 10:36 AM 153 / 64 55 100 % 16 10:41 AM 136 / 63 58 100 % 12 10:46 AM 135 / 54 60 100 % 15 10:51 AM 153 / 65 58 100 % 14 10:56 AM 158 / 78 56 100 % 13 11:01 AM 168 / 64 50 100 % 24 11:06 AM 162 / 74 74 100 % 16 11:11 AM 166 / 66 % Procedural Medications Time Medication Dose Units Method Given By 10:14 AM Versed 2 mg Intravenous Adriana Lindquist RN 10:14 AM Fentanyl 50 mcg Intravenous Adriana Lindquist RN 10:37 AM Lidocaine 2% 0.5 ml Subcutaneous Clint Junior MD, FACC 10:59 AM Aggrastat Bolus: 66.5 ml Intravenous Adriana Lindquist RN 10:59 AM Aggrastat 12.5mg/250ml 24 ml/hr Intravenous Adriana Lindquist RN 09:49 AM Oxygen 2 L/min nasal cannula Adriana Lindquist RN 11:13 AM Brilinta 180 mg Orally Adriana Lindquist RN 10:38 AM Heparin 4000 units Nitroglycerin 200 mcg Verapamil 2.5 mg Intraarterial Clint Junior MD, FACC 10:55 AM Heparin 2000 units Intravenous Adriana Lindquist RN ASA Classification: CLASS II- Mild systemic disease (i.e. well-controlled diabetes, hypertension, asthma, cigarette smoking) Mahamed Score Preprocedure Postprocedure Activity 2- Moves 4 extremities sustained head lift Activity 2- Moves 4 extremities sustained head lift Circulation 2- SBP +/= 20 points of pre-anesthetic level Circulation 2- SBP +/= 20 points of pre-anesthetic level Consciousness 2- Awake and alert oriented x 3 Consciousness 2- Awake and alert oriented x 3 O2 Saturation 2- Able to maintain O2 satruation of 92% on room air O2 Saturation 2- Able to maintain O2 satruation of 92% on room air Respiratory 2- Able to deep breathe and cough well Respiratory 2- Able to deep breathe and cough well Total Score 10 Total Score 10 Contrast Agent: Isovue Diagnostic Contrast: 60 ml Total Contrast: 60 ml Fluoro Dose: 439 mGy Activated Clotting Time Time Seconds to Clot 10:54 AM 261 Procedure Log Time Note Enter By 09:49 AM Pt arrived to laborer [facility] 1 at 09:49 [facility] 09:58 AM Patient charges- Angio tray pack, Navilyst 3mm J, Pulse Oximetry and ACIST tubing and transducer [facility] 09:58 AM Case Delayed No [facility] 10:02 AM CathStat 10:12 AM Mia Lawrence RT (R) Position: Scrub Time in: 10:12 [facility] 10:12 AM Adriana Lindquist RN Position: Assistant Corporate Controller Time in: 10:12 [facility] 10:12 AM Christine Gregorio RN Position: Nurse Time in: 10:12 [facility] 10:12 AM Physician arrived 10:12 [facility] 10:12 AM ASA Class CLASS II- Mild systemic disease (i.e. well-controlled diabetes, hypertension, asthma, cigarette smoking) [facility] 10:12 AM Meet and greet completed [facility] 10:12 AM Sign in performed according to hospital policy. [facility] 10:12 AM Procedure start 10:12 [facility] 10:12 AM Time: 10:12 Patient comfortable and pain free: Yes [facility] 10:12 AM Time: 10:12LOC: 5 = Fully awake and oriented or at pre-proc level [facility] 10:12 AM Bisi Baker RT (R) Position: Monitor Time in: 10:12 [facility] 10:12 AM Clinical Presentation: Non-STEMI [facility] 10:13 AM Time: 10:12 Patient comfortable and pain free: Yes [facility] 10:13 AM Time: 10:12LOC: 5 = Fully awake and oriented or at pre-proc level [facility] 10:14 AM Time: 10:14 Versed 2 mg Intravenous Given by Adriana Lindquist RN [place] [facility] 10:14 AM Time: 10:14 Fentanyl 50 mcg Intravenous Given by Adriana Lindquist RN [facility] 10:15 AM Vitals capture started with the following parameters, Patient=Adult, Interval=5 min, Initial Rkptihqb=997 mmHg, Deflation Rate=5 mmHg, Cuff placed on Left Arm 10:15 AM HR=65 bpm, NHJF=961/92 mmhg, GkE1=397.0 %, Resp=17 B/min, Comment=sr 10:20 AM HR=57 bpm, SUAR=705/67 mmhg, SpO2=99.0 %, Resp=26 B/min, Comment=sr 10:26 AM HR=52 bpm, QBUM=834/69 mmhg, VbH5=081.0 %, Resp=14 B/min, Comment=sr 10:31 AM HR=56 bpm, PCYT=363/64 mmhg, BpA8=984.0 %, Resp=16 B/min, Comment=sr 10:36 AM HR=55 bpm, GIIC=421/64 mmhg, BnA5=419.0 %, Resp=16 B/min, Comment=sr 10:37 AM Clinical Presentation: Non-STEMI d[facility]ellman 10:37 AM Time out performed according to hospital policy dspell[facility] 10:37 AM Time: 10:37 0.5 ml Lidocaine 2% to right radial Subcutaneous Given by Clint Junior MD, [facility] 10:38 AM Time:10:38 Patient given 4,000 units Heparin, 200 mcg Nitroglycerin, and 2.5 mg Verapamil Intraarterial by Clint Junior MD, [facility] 10:38 AM Access obtained by percutaneous puncture. 5Fr 10cm Terumo Weems sheath placed in right Radial artery. [id number] dspellman 10:38 AM Time: 10:38 Patient comfortable and pain free: Yes dspellman 10:38 AM Time: 10:38LOC: 4 = Oriented but drowsy dspellman 10:38 AM 5Fr TIG catheter inserted over the wire [facility] 10:38 AM 0.035 260cm Navilyst 3mmJ wire [id number] [facility] 10:40 AM Pressure channel 1 zeroed. 10:41 AM HR=58 bpm, XZOZ=742/63 mmhg, DzJ8=126.0 %, Resp=12 B/min, Comment=sr 10:41 AM Recorded Pressure: Ao, HR=60, Condition=Condition 1 (Aorta) Ao 102/57/74 10:42 AM RCA angiography performed in multiple views. dspellman 10:42 AM Recorded Pressure: Ao, HR=59, Condition=Condition 1 (Aorta) Ao 104/62/79 10:43 AM Coronary Dominance: right dspellman 10:43 AM Lesion found in Distal RCA. Pre Stenosis: 50 Pre LEONIDAS Flow: dspellman 10:43 AM Recorded Pressure: Ao, HR=61, Condition=Condition 1 (Aorta) Ao 111/30/70 10:44 AM Catheter removed dspellman 10:44 AM 5Fr FL3.5 catheter inserted over the wire [id number] dspellman 10:45 AM LCA angiography performed in multiple views. dspellman 10:45 AM Recorded Pressure: Ao, HR=60, Condition=Condition 1 (Aorta) Ao 115/65/87 10:46 AM HR=60 bpm, RJQW=937/54 mmhg, MpG1=136.0 %, Resp=15 B/min, Comment=sr 10:47 AM Lesion found in . Pre Stenosis: Pre LEONIDAS Flow: dspellman 10:47 AM Lesion found in Ramus. Pre Stenosis: 80 Pre LEONIDAS Flow: dspellman 10:48 AM Catheter removed dspellman 10:48 AM PCI Status Urgent dspellman 10:48 AM PCI Indication: PCI for high risk Non-STEMI or unstable angina dspellman 10:48 AM 5Fr Pigtail catheter inserted over the wire DN dspellman 10:49 AM Pressure channel 1 zeroed. 10:51 AM HR=58 bpm, GZQV=470/65 mmhg, KzE8=127.0 %, Resp=14 B/min, Comment=sr 10:53 AM Time: 10:38LOC: 4 = Oriented but drowsy dspellman 10:53 AM Time: 10:38 Patient comfortable and pain free: Yes dspellman 10:54 AM Recorded Pressure: Ao, HR=56, Condition=Condition 1 (Aorta) Ao 146/56/89 10:54 AM Catheter removed, unable to cross valve dspellman 10:54 AM At 10:54 the ACT was 261 seconds. dspellman 10:55 AM Time: 10:55 Heparin 2000 units Intravenous Given by Adriana Lindquist RN Quintero pump dspellman 10:55 AM PCI lesion in Ramus. dspellman 10:55 AM 6Fr RBL 3.5 Convey guide catheter was used to cannulate the PCI vessel successfully. reused? No dspellman 10:55 AM .014 PT Graphix 182cm guide wire across target lesion- successful. reused? No dspellman 10:55 AM Inflation device was opened. dspellman 10:56 AM HR=56 bpm, YPPD=343/78 mmhg, UbY9=061.0 %, Resp=13 B/min 10:56 AM 2.5 mm x 8 mm Emerge Monorail balloon across target lesion- successful. reused? No dspellman 10:57 AM Balloon inflated @ 10 shima for 12 seconds dspell 10:59 AM Time: 10:59 Aggrastat Bolus: 66.5 ml Intravenous Given by Adriana Lindquist RN Quintero pump dspell 11:00 AM Time: 10:59 Aggrastat 12.5mg/250ml 24 ml/hr Intravenous Given by Adriana Lindquist RN Quintero pump dspell 11:00 AM 3.0mm x 16mm Synergy drug-eluting stent across target lesion- successful Lot #[id number] dspell 11:00 AM Stent deployed @ 10 shima for 20 seconds dspellman 11:01 AM HR=50 bpm, ZPSD=026/64 mmhg, DtV5=960.0 %, Resp=24 B/min, Comment=sr 11:01 AM Stent delivery system removed intact. dspell 11:02 AM 3.0 mm x 12mm NC Trek Rx balloon across target lesion- successful. reused? No dspellman 11:03 AM Balloon inflated @ 20 shima for 30 seconds dspellman 11:03 AM Recorded Pressure: Ao, HR=59, Condition=Condition 1 (Aorta) Ao 135/47/82 11:03 AM Stent delivery system removed intact. dspellman 11:04 AM Guide wire removed intact. dspellman 11:04 AM Guide catheter removed intact. dspellman 11:05 AM Lesion found in Proximal LAD. Pre Stenosis: 20 Pre LEONIDAS Flow: dspellman 11:05 AM Lesion found in Mid LAD. Pre Stenosis: 20 Pre LEONIDAS Flow: dspellman 11:05 AM Lesion found in Mid Circumflex. Pre Stenosis: 40 Pre LEONIDAS Flow: dspellman 11:05 AM 6Fr Pigtail catheter inserted over the wire [facility] dspellman 11:06 AM HR=74 bpm, NAAV=260/74 mmhg, AtS1=885.0 %, Resp=16 B/min, Comment=sr 11:06 AM Pressure channel 1 zeroed. 11:07 AM Recorded Pressure: LV, HR=58, Condition=Condition 1 (Left Ventricle) LV 148/39/59 11:07 AM Recorded Pressure: LV, Ao, HR=55, Condition=Condition 1 (Left Ventricle) LV 169/12/29, (Aorta) Ao 156/55/96 11:07 AM LV pressures recorded dspell 11:07 AM Procedure completed at 11:07 dspell 11:08 AM Sign out completed: Radiation Dose 438.82 mGy Fluoro Time: 6.9 Isovue 370 - 200ml contrast 60 ml given by Clint Junior MD, [facility]. Complications: NoneCardiac Rehab Consult needed: YesConfirmed administered medications: Yes ell 11:09 AM Time: 10:53 Patient comfortable and pain free: Yes ell 11: AM Time: 10:53LOC: 4 = Oriented but drowsy dspell 11:09 AM Isovue 370 - 200ml,1 Bottle(s) used. ell 11:10 AM Time: 09:49 Oxygen on at 2 L/min per nasal cannula by Adriana Lindquist RN 11:11 AM ZOSI=014/66 mmhg 11:13 AM Time: 11:13 Brilinta 180 mg Orally Given by Adriana Lindquist RN 11:16 AM Arterial sheath pulled, Vasc Band closure device used and was Successful S/N. dspell 11:16 AM 12 ml air in Vasc Band. dspell 11:22 AM Post ECG NSR dspell 11:22 AM Post Blood Pressure 162/74 dspell 11:22 AM 11:22 Post Pulses Rt Radial 2+ dspell 11:22 AM Information taught Cardiac Cath, PCI, and Vasc Band dspell 11:22 AM Education needs Procedure, Plan of Care, and Responsibilities of Patient in Care dspell 11:23 AM Learning barriers :None dspell 11:23 AM Education Methods Verbal dspell 11:23 AM Education evaluation Able to repeat information dspell 11:23 AM Site status No bleeding/hematoma - Rt Wrist as reported by Mia Lawrence RT (R) at 11:23 dspellman 11:23 AM Report given to Tobias CARDONA Pt taken to 2A Room #35. 11:23 dspellman 11:23 AM Delay to floor No dspellman 11:23 AM Patient out of room: 11:23 dspellman 11:23 AM Family placed in consult room. dspellman 11:23 AM Complications: None dspellman 11:23 AM Fluoro Time: 6.9 dspellman 11:24 AM Isovue 370 - 200ml contrast 60 ml given by Clint Junior MD, [facility]. dspellman 11:24 AM Radiation Dose 438.82 mGy carlito Complications Complication None None Hemodynamics Pressures Site Systolic/A Wave Diastolic/V Wave Mean AO 102 57 74 AO 104 62 79 AO 111 30 70 AO 115 65 87 AO 146 56 89 AO 135 47 82 LV 148 39 59 LV 169 12 29 AO 156 55 96 Post Procedure Information Blood Pressure: 162/74 mmHg Rhythm: NSR Post procedural instructions were given Closure Device Time Device Success/Fail 07/28/2016 11:24:00 AM Mechanical Compression Successful Site Checks Time Location Status Staff Sheath In? Note 11:23 AM Rt Wrist No bleeding/hematoma Mia Lawrence RT (R) Pulses Time Site Pre-Procedure Post-Procedure Note 07/28/2016 9:28:00 AM Bilateral DP \\T\\ PT 1+ 07/28/2016 9:29:00 AM Bilateral radial 1+ 11:22:00 AM Rt Radial 2+ Updated by Bisi Baker RT (R) on 07/28/2016 11:31:39 AM Bisi Baker RT electronically signed on 07/28/2016 11:32:11 AM with status of Final
[2016-07-28] MEDS ORDERED: Insulin DETEMIR 100 UNIT/ML X5UNITS SQ SCH (15:49)
[2016-07-28] MEDS: *HR* Ticagrelor 90 MG TABLET PO SCH (22:02)
[2016-07-29] MEDS: hydrALAZINE 25 MG TABLET PO SCH ×2 (00:57→08:41)
[2016-07-29 03:50] LABS: Basophils % 0.4 %; Eosinophils # 0.5 K/mcL (0.0-0.6); Eosinophils % 4.7 %; Hemoglobin 10.5 g/dL (12.9-16.9); Immature Granulocytes % 4.2 % (0-4); Lymphocytes # 1.6 K/mcL (0.6-4.6); Lymphocytes % 16.3 %; Mean Corpuscular HGB Conc 33.9 g/dL (31.6-35.5); Mean Corpuscular Hemoglobin 32.2 pg (28.0-33.3); Mean Corpuscular Volume 95.1 fL (83.0-100.0); Mean Platelet Volume 10.7 fL (9.4-12.4); Monocytes % 9.8 %; Neutrophils # 6.5 K/mcL (1.6-8.9); Platelet Count 146 K/mcL (140-400); Red Blood Count 3.26 M/mcL (4.19-5.50); Red Cell Distribution Width 13.2 % (11.5-14.5); Segmented Neutrophils % 64.6 %
[2016-07-29 04:02] LABS: Calcium 8.1 mg/dL (8.6-10.8); Potassium 4.4 mEq/L (3.5-4.5)
[2016-07-29] MEDS: Insulin LISPRO 300 UNITS/3 ML VIAL SQ SCH ×2 (08:22→12:02)
--- NOTE | 2016-07-29 08:35 | Invasive Diagnostic Lab ---
Name: Vinod Elliott Date of Study: 07/28/2016 Date: 1945 Ht: 175.3 cm /69.0 in Medical Record#: [id number] Age: 70 Wt: 130. kg / 286.60 lb Account/Order#: [id number] Gender: Male BSA: 2.41 Order #: [id number] Fluoro Dose: 439 mGy BMI: 42.3 Procedure Physician: Clint Junior MD, FACC Referring MD: Referring MD: Procedures Performed: LEFT HEART CATH Stent w/ PTCA Single Major Vessel Indications: Non-Stemi Impressions: There is moderate one vessel coronary artery disease. Patient had successful trasnradial PTCA/Drug-Eluting Stent placement in the mid Ramus. Recommendations: Optimal medical therapy of patient's disease. Aggressive risk factor modification. History/Risk Factors: CKD CHF HYPOMAGNESIA Diabetes Hypertension Procedure Access obtained in the right Radial artery by percutaneous puncture Patient had successful PTCA/Drug-Eluting Stent placement in the mid Ramus. Complications: None, None Contrast: Isovue 60ml Closure Device: Mechanical Compression Hemodynamics: Pressures Site Systolic/ A Wave Diastolic/ V Wave End Diastolic/ Mean HR AO 102 57 74 60 AO 104 62 79 59 AO 111 30 70 61 AO 115 65 87 60 AO 146 56 89 56 AO 135 47 82 59 LV 148 39 59 58 LV 169 12 29 54 AO 156 55 96 57 Coronary Dominance: right Lesion Findings/Interventions * Left Main Coronary Artery The LMCA is angiographically free of disease. * Left Anterior Descending There is a 20% stenosis in the Proximal LAD. There is a 20% stenosis in the Mid LAD. * Circumflex There is a 40% stenosis in the Mid Circumflex. * Ramus There is a 16 mm long, 80% stenosis in the Ramus. An intervention was performed on the Ramus with a final stenosis of 0%. There were no lesion complications. The final LEONIDAS flow was 3. * Right Coronary Artery There is a 50% stenosis in the Distal RCA. Interventional Device(s) Vessel Segment Type Name Diameter (mm) Length (mm) Ramus Balloon Emerge Monorail 2.5 8 Ramus Drug Eluting Stent Synergy 3 16 Ramus Balloon NC Trek Rx 3 12 Updated by Bisi Baker RT (R) on 07/28/2016 11:31:14 AM Clint Junior MD, FACC electronically signed on 07/29/2016 8:28:08 AM with status of Final
[2016-07-29] MEDS: amLODIPine 5 MG TABLET PO SCH (08:41)
[2016-07-29] MEDS: Finasteride 5 MG TABLET PO SCH (08:41)
[2016-07-29] MEDS: *HR* Ticagrelor 90 MG TABLET PO SCH (08:41)
[2016-07-29] MEDS: Metoprolol XL (24 HR) Succ 50 MG TAB.ER.24H PO SCH (08:42)
[2016-07-29] MEDS: Loratadine 10 MG TABLET PO SCH (08:42)
[2016-07-29] MEDS: Isosorbide MONOnitrate (24 HR) 30 MG TAB.ER.24H PO SCH (08:42)
[2016-07-29] MEDS ORDERED: Aspirin 81 MG TAB.CHEW PO SCH (09:00)
[2016-07-29] MEDS ORDERED: levoFLOXacin 500 MG TABLET PO SCH (10:00)
--- NOTE | 2016-07-29 10:53 | Cardiology Progress Note ---
Date of Encounter: 07/29/16 Time of Encounter: 10:51 Assessment and Plan (1) Elevated troponin Current Visit: Yes Status: Acute Troponins 0.26, 0.20, 0.23, 0.22--flat and adynamic in setting of FINN on CKD, elevated BP, episode of A-Fib. Demand ischemia vs. NSTEMI. Echo EF 60-65%, mild concentric LVH, mild diastolic dysfunction, moderate- severely dilated left atrium. S/P LHC yesterday with PTCA/LEA to mid Ramus. DAPT for 1 year uninterrupted. Will switch Brilinta to Plavix since pt is [place]. ASA, Plavix, Statin, BB, nitrates. right radial access site healing well. No bleeding, hematoma or ecchymosis noted. Cardiology signing off. Reconsult PRN. Follow-up as outpt in 1 week. Will coordinate. (2) CAD (coronary artery disease) Current Visit: Yes Status: Acute As above, s/p LHC yesterday. PTCA/LEA to mid Ramus. DAPT (ASA, Plavix) a 1 year , Statin, BB, Nitrates. Qualifiers: Coronary Disease-Associated Artery/Lesion type: [place] artery [place] vs. transplanted heart: [place] heart Associated angina: without angina Qualified Code(s): I25.10 - Atherosclerotic heart disease of [place] coronary artery without angina pectoris (3) CKD (chronic kidney disease), stage III Current Visit: Yes Status: Chronic Improved today, creatinine 1.54. (4) PAF (paroxysmal atrial fibrillation) Current Visit: Yes Status: Acute New diagnosis. Confirmed on EKG at [place]. Currently SR. No evidence of recurrent PAF on tele. CHADSVASC score of at least 3 (Age, HTN, DM). Since pt received PCI and will be on ASA and Plavix, do not recommend full anticoagulation at this time. Episode was brief, <24 hours without recurrence. Follow-up as outpt. Discussion w patient/family: The assessment and plan as outlined above was discussed with the patient and/or family members who expressed understanding and agreement. All questions were answered. Thank you for involving us in the care of your patient. Please call with any questions. I will discuss all the above with Dr. Burks and make changes as necessary. Subjective Principal diagnosis: Chest pain, elevated troponin, CKD Interval history: Pt had LHC yesterday--Successful PTCA/LEA to mid Ramus. 40% mid circ, 50% distal RCA. Pt denies any chest pain overnight. Objective Vital Signs, Last 4 Hours Temp Pulse Resp BP Pulse Ox 07/29/16 07:00 97.7 F 72 18 165/76 96 Vital Signs Temp Pulse Resp BP Pulse Ox 07/29/16 07:00 97.7 F 72 18 165/76 96 07/29/16 03:47 98 F 70 16 130/47 95 07/29/16 00:49 98.5 F 69 16 208/70 96 07/28/16 21:16 97.9 F 63 16 150/64 97 07/28/16 15:50 98.2 F 61 16 179/59 98 07/28/16 11:39 97.8 F 56 16 167/88 97 Intake and Output 07/28/16 07/29/16 07/29/16 23:59 07:59 15:59 Intake Total 240 / 240 480 / 480 Output Total 600 / 600 1075 / 1075 300 / 300 Balance -360 / -360 -1075 / -1075 180 / 180 Intake: Oral 240 / 240 480 / 480 Output: Urine 600 / 600 1075 / 1075 300 / 300 Other: Meal Dinner Breakfast Percent of Meal Consumed 100% 100% Weight 130.22 kg Blood Glucose* 136 110 Patient Weight 07/29/16 23:59 Weight 130.22 kg General: Conversant, No Apparent Distress HEENT: Atraumatic, Normocephaly, Mucus Membranes Moist Neck: No JVD, Normal carotid pulses Cardiac: Reg Rate and Rhythm, Normal S1 and S2, No Murmur Lungs: Normal Breath Sounds, No Wheeze, Rales, Rhonchi Neuro: Alert and responsive, No focal deficits noted Abdomen: Soft, Non-Tender Skin: Other (Right radial access site healing well. No bleeding, hematoma or ecchymosis noted.) Musculoskeletal: No Chest Wall Tenderness Extremities: No Clubbing, No Cyanosis, Other (mild LE edema noted) Results 07/29/16 03:10 07/29/16 03:10 Lab Results 07/28/16 07/29/16 07/29/16 13:25 03:10 03:10 WBC 10.0 Hgb 10.5 L Hct 31.0 L Plt Count 146 APTT 94.9 H D Sodium 139 Potassium 4.4 Chloride 110 H Carbon Dioxide 23 BUN 46 H D Creatinine 1.54 H Glucose 114 H Calcium 8.1 L Short CBC 07/29/16 Range/Units 03:10 WBC 10.0 (4.3-11.1) K/mcL Hgb 10.5 L (12.9-16.9) g/dL Hct 31.0 L (37.5-50.1) % Plt Count 146 (140-400) K/mcL Neutrophils # 6.5 (1.6-8.9) K/mcL BMP 07/29/16 Range/Units 03:10 Sodium 139 (136-145) mEq/L Potassium 4.4 (3.5-4.5) mEq/L Chloride 110 H (98-109) mEq/L Carbon Dioxide 23 (19-29) mEq/L BUN 46 H D (8-26) mg/dL Creatinine 1.54 H (0.72-1.25) mg/dL Glucose 114 H (70-99) mg/dL Calcium 8.1 L (8.6-10.8) mg/dL Active Medications Albuterol Sulfate (Proventil Neb) 2.5 mg IH [id number] PRN; Protocol PRN Reason: Shortness Of Breath/Wheezing Stop: 01/27/17 09:05 Amlodipine Besylate (Norvasc) 5 mg PO DAILY [facility] Stop: 01/25/17 08:26 Last Admin: 07/29/16 08:41 Dose: 5 mg Aspirin (Aspirin) 81 mg PO DAILY [facility] Stop: 01/28/17 09:01 Last Admin: 07/29/16 08:41 Dose: 81 mg Atorvastatin Calcium (Lipitor) 40 mg PO HS [facility] Stop: 01/25/17 21:01 Last Admin: 07/28/16 22:02 Dose: 40 mg Dextrose/Water (Dextrose 50% (Syg)) 25 ml IVP AD PRN PRN Reason: Hypoglycemia Stop: 01/24/17 19:17 Last Admin: 07/28/16 07:42 Dose: 25 ml Finasteride (Proscar) 5 mg PO DAILY [facility] PRN Reason: Protocol Stop: 01/25/17 09:01 Last Admin: 07/29/16 08:41 Dose: 5 mg Glucagon (Glucagen) 1 mg IM ONCE PRN PRN Reason: Hypoglycemia Stop: 01/24/17 19:17 Glucose (Gluctose) 15 gm PO ONCE PRN PRN Reason: Hypoglycemia Stop: 01/24/17 19:17 Glucose (Gluctose) 30 gm PO ONCE PRN PRN Reason: Hypoglycemia Stop: 01/24/17 19:17 Hydralazine HCl (Hydralazine) 25 mg PO Q8HR [facility] Stop: 01/26/17 16:01 Last Admin: 07/29/16 08:41 Dose: 25 mg Dextrose (Dextrose 5%) 1,000 mls @ 100 mls/hr IVC .Q10H PRN PRN Reason: HYPOGLYCEMIA Stop: 01/24/17 19:17 Sodium Chloride (0.9 % Sodium Chloride) 1,000 mls @ 75 mls/hr IVC .[id number] [facility] Stop: 01/26/17 10:16 Last Admin: 07/28/16 21:59 Dose: 75 mls/hr Insulin Detemir (Levemir) 20 unit SQ QAM [facility] Stop: 01/25/17 09:01 Last Admin: 07/29/16 08:41 Dose: 20 unit Insulin Human Lispro (Humalog) 0 units SQ HS [facility] PRN Reason: Protocol Stop: 01/24/17 21:01 Last Admin: 07/28/16 22:25 Dose: Not Given Insulin Human Lispro (Humalog) 0 units SQ TIDAC [facility] PRN Reason: Protocol Stop: 01/25/17 07:31 Last Admin: 07/29/16 08:22 Dose: Not Given Isosorbide Mononitrate (Imdur) 30 mg PO DAILY [facility] Stop: 01/25/17 09:01 Last Admin: 07/29/16 08:42 Dose: 30 mg Levofloxacin (Levaquin) 500 mg PO Q24H [facility] PRN Reason: Protocol Stop: 01/28/17 10:01 Last Admin: 07/29/16 10:29 Dose: 500 mg Loratadine (Claritin) 10 mg PO DAILY [facility] Stop: 01/25/17 09:01 Last Admin: 07/29/16 08:42 Dose: 10 mg Metoprolol Succinate (Toprol Xl) 100 mg PO DAILY [facility] Stop: 01/25/17 09:01 Last Admin: 07/29/16 08:42 Dose: 100 mg Naloxone HCl (Narcan) 0.4 mg IVP Q2MIN PRN PRN Reason: Opioid Reversal Stop: 01/24/17 19:12 Nitroglycerin (Nitroglycerin) 0.4 mg SL Q5MIN PRN PRN Reason: Chest Pain Stop: 01/24/17 20:47 Ondansetron HCl (Zofran) 4 mg IVP Q6HR PRN; Protocol PRN Reason: Nausea And Vomiting Stop: 01/27/17 11:18 Tamsulosin HCl (Flomax) 0.4 mg PO HS [facility] PRN Reason: Protocol Stop: 01/25/17 21:01 Last Admin: 07/28/16 22:02 Dose: 0.4 mg Ticagrelor (Brilinta) 90 mg PO BID [facility] Stop: 01/27/17 21:01 Last Admin: 07/29/16 08:41 Dose: 90 mg - Imaging and Cardiology Echo: report reviewed Cardiac cath: report reviewed - EKG Interpretation EKG results cardiology: other (24 hour tele AVG HR 66, SR, no significant pauses or arrhythmias noted.) Consult Discharge Plan - Plan [facility]errals: [facility] [Primary Care Provider[facility] -
[2016-07-29] MEDS ORDERED: amLODIPine 5 MG TABLET PO STA (11:05)
[2016-07-29] MEDS: 0.9 % Sodium Chloride 1,000 ML IVC SCH (11:26)
[2016-07-29 11:59] VITALS: BP 158/80
--- NOTE | 2016-07-29 13:30 | Discharge Summary ---
Date of Encounter: 07/29/16 Time of Encounter: 13:22 - Discharge Diagnosis (1) NSTEMI (non-ST elevated myocardial infarction) Priority: Primary Status: Acute (2) CKD (chronic kidney disease), stage III Priority: Secondary Status: Chronic (3) CHF (congestive heart failure) Priority: Secondary Status: Chronic Qualifiers: Congestive heart failure type: diastolic Congestive heart failure chronicity: chronic Qualified Code(s): I50.32 - Chronic diastolic (congestive ) heart failure (4) Diabetes Priority: Secondary Status: Chronic Qualifiers: Diabetes mellitus type: type 2 Diabetes mellitus complication status: with kidney complications Diabetes mellitus complication detail: with chronic kidney disease 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 Clopidogrel [Plavix] 600 mg PO ONCE #2 tablet Clopidogrel [Plavix] 75 mg PO DAILY #30 tablet levoFLOXacin [Levaquin] 500 mg PO Q24H #2 tablet Home Medications: Albuterol Sulfate [Albuterol Inhaler] 2 puff IH QID PRN 07/25/16 [History] Atorvastatin [Lipitor] 40 mg PO HS 07/25/16 [History] Cetirizine HCl [Zyrtec] 10 mg PO DAILY 07/25/16 [History] Chlorhexidine Gluconate [Peridex] 15 ml MM BID 07/25/16 [History] Dextrose [Glucose] 16 gm PO AD PRN 07/25/16 [History] Febuxostat [Uloric] 80 mg PO DAILY 07/25/16 [History] Finasteride [Proscar] 5 mg PO DAILY 07/25/16 [History] Folic Acid 1 mg PO DAILY 07/25/16 [History] Insulin ASPART [NovoLOG] 12 unit SQ QAM [facility] Breakfast 07/25/16 [History] Insulin ASPART [NovoLOG] 15 unit SQ BID [facility] Lunch & Dinner 07/25/16 [History] Insulin Glargine [Lantus] 30 unit SQ HS 07/25/16 [History] Insulin Glargine [Lantus] 35 unit SQ QAM 07/25/16 [History] Isosorbide MONOnitrate (24 HR) [Imdur] 30 mg PO DAILY 07/25/16 [History] Latanoprost [Xalatan] 1 drop BOTH EYES HS 07/25/16 [History] Magnesium Oxide [Mag-Ox] 400 mg PO HS 07/25/16 [History] Metoprolol Succinate 100 mg PO DAILY 07/25/16 [History] Mineral Oil/Petrolatum,White [Eucerin Creme] 1 appl TP DAILY 07/25/16 [History] Nitroglycerin [Nitrostat] 0.4 mg SL Q5M PRN 07/25/16 [History] Omeprazole [PriLOSEC] 20 mg PO BIDAC 07/25/16 [History] Sodium Polystyrene Sulfonate [Kayexalate] 15 gm PO BID 07/25/16 [History] Tamsulosin [Flomax] 0.4 mg PO DAILY 07/25/16 [History] Aspirin Enteric Coated [Aspirin EC] 81 mg PO DAILY #30 tablet. 07/29/16 [Rx] Clopidogrel [Plavix] 75 mg PO DAILY #30 tablet 07/29/16 [Rx] Clopidogrel [Plavix] 600 mg PO ONCE #2 tablet 07/29/16 [Rx] Furosemide [Lasix] 40 mg PO QPM #0 07/29/16 [Rx] Furosemide [Lasix] 80 mg PO QAM #0 07/29/16 [Rx] amLODIPine [Norvasc] 10 mg PO DAILY #60 tablet 07/29/16 [Rx] levoFLOXacin [Levaquin] 500 mg PO Q24H #2 tablet 07/29/16 [Rx] Allergies/Adverse Reactions: Allergies pioglitazone [From Actos] Allergy (Verified 11/23/14 16:34) Swelling of Lip/Tongue/Throat vancomycin Allergy (Verified 11/23/14 16:34) Swelling of Lip/Tongue/Throat Procedures/tests Complete & Pending: Procedures Performed prior 72 hours Category Date Time Status CL Cardiac Catheterization [CL] Routine [employer] 07/28/16 09:06 Completed Date of admission: 07/25/16 16:49 [facility] physician: [facility] Consults: 07/25/16 20:27 Consult to Cardiology [CONS] Routine Comment: Consulting Provider: Tian Roberts Reason for Consult: NSTEMI Time Notified: 20:27 Call Completed: No 07/28/16 10:22 Consult to Cardiac Rehabilitation-Phase1 [CONS] Routine Comment: Reason for Consult: NSTEMI Call Completed: No Discharging clinician: Melchor Carbajal Anticipated date of discharge: 07/29/16 - Patient Status Disposition: Home, Self-Care Condition: Good Functional capacity at discharge: independent ambulation Overall status at discharge: patient is progressing back to baseline - Discharge Instructions Instructions: Myocardial Infarction (DC), Diabetes Mellitus Type 2 in Adults ( DC) Follow [facility] With: [facility] [Primary Care Provider[facility] - Additional Instructions: Follow-up with nephrology Dr. Lester in one week for chronic kidney disease Follow-up with cardiology in 1 week for coronary artery disease status post PCI - Diet and Activity Activity: as per the cardiac rehab Diet: diabetic diet, low fat, low cholesterol, low salt diet Hospital course: Mr. Elliott is a 70 year old male patient with a history of hypertension, diabetes, chronic kidney disease stage III, vascular disease and coronary artery disease who was admitted here with shortness of breath and cough after presented to the [facility] with these complaints. He was also found to have an elevated creatinine above his baseline on presentation and was noted to have an episode of atrial fibrillation in the ER. His cardiac enzymes were also elevated with a troponin of 0.26. He was started on treatment for this with IV heparin and was also treated for acute bronchitis with bronchodilator nebs and IV antibiotics. Cardiology was consulted. Per their recommendations, patient underwent left heart catheterization yesterday and he had a PTCA with drug-eluting stent to mid ramus. He has since been placed on Brilinta. However due to his [place] through the [place], he will be transitioned to Plavix. Given his high loading dose of Plavix and recent PCI, hold anticoagulation for his A. fib at this time and they will evaluate this further as outpatient as his A. fib episode was brief. For now, patient is feeling much better. No chest pain. He did have a good ejection fraction of 60-65% with mild diastolic dysfunction. He will be discharged home today after receiving loading Plavix. He will continue aspirin and Plavix from tomorrow. He will follow-up with cardiology for further management as outpatient. He will also follow up with nephrology as outpatient for his chronic kidney disease. - Time Spent with Patient Total time spent providing and/or coordinating discharge services: Greater than 30 minutes (45 min) - Constitutional Vitals: Temp Pulse Resp BP Pulse Ox 97.9 F 60 16 158/80 99 07/29/16 11:58 07/29/16 11:58 07/29/16 11:58 07/29/16 11:58 07/29/16 11:58 General appearance: Present: A&O X 3, morbidly obese, answers questions appropriately - Respiratory Respiratory exam: Present: CTAB. Absent: accessory muscle use, rales, rhonchi, wheezes - Cardiovascular Cardiovascular exam: Present: RRR, +S1, +S2. Absent: diastolic murmur, gallop, rubs, systolic murmur - GI/Abdominal GI/Abdominal exam: Present: normal bowel sounds, soft, no peritoneal signs. Absent: distended, tenderness - Attending Attestation This document has been at least partially created by [employer] recognition technology by Dr. Carbajal. Errors in grammar, wording or other phrases may exist. If errors are found after the documentation is signed, they will be addressed individually in the addendum section of this document when appropriate.
[2016-07-30] MEDS ORDERED: amLODIPine 5 MG TABLET PO SCH (09:00)
== END 2016-07-29 14:28 | disposition home or self-care (01) | DRG 247 ==
LOC: SUATTDRO 16:49 → 2ANU 16:49
PROVIDERS: ADMIT Internal Medicine; ATTEND Internal Medicine

== ENCOUNTER 2017-08-12 21:46 | Inpatient (IN) ==
--- NOTE | 2017-08-12 22:06 | Emergency Department Note ---
Disposition Clinical Impression: Symptomatic bradycardia, Elevated TSH, Acute renal insufficiency Disposition: Admitted As Inpatient Condition: Good [facility] Provider[facility] - Forms: ED Satisfaction Letter General Adult HPI - General Chief complaint: ED Arrhythmia/Palpitations Stated complaint: low heart rate Source: patient, EMS Nursing Notes Reviewed: Yes Vital Signs Reviewed: Yes - History of Present Illness HPI Narrative: 71-year-old male presents emergency department with concern for lightheadedness. Patient was seen approximately one month ago and was started on loop recorder. After 2 days, the recorder was removed. Today, [facility] as [facility] was concern that he was having episodes of bradycardia in the 20s. Patient reports having intermittent lightheadedness over the last month. States that he has had 10 episodes of this today. Denies any falls, loss of consciousness. Patient states that they are very short in nature. Denies any chest pain, chest pressure, chest tightness. Pain Scale: 0 - Related Data Home Medications Medication Instructions Recorded Confirmed Albuterol Sulfate [Albuterol 2 puff IH QID PRN 07/25/16 10/02/16 Inhaler] Atorvastatin [Lipitor] 40 mg PO HS 07/25/16 10/02/16 Cetirizine HCl [Zyrtec] 10 mg PO DAILY 07/25/16 10/02/16 Chlorhexidine Gluconate [Peridex] 15 ml MM BID 07/25/16 10/02/16 Dextrose [Glucose] 16 gm PO AD PRN 07/25/16 10/02/16 Febuxostat [Uloric] 80 mg PO DAILY 07/25/16 10/02/16 Finasteride [Proscar] 5 mg PO DAILY 07/25/16 10/02/16 Folic Acid 1 mg PO DAILY 07/25/16 10/02/16 Insulin ASPART [NovoLOG] 12 unit SQ QAM MDD Breakfast 07/25/16 10/02/16 Insulin ASPART [NovoLOG] 15 unit SQ BID MDD Lunch & Dinner 07/25/16 10/02/16 Insulin Glargine [Lantus] 30 unit SQ HS 07/25/16 10/02/16 Insulin Glargine [Lantus] 35 unit SQ QAM 07/25/16 10/02/16 Latanoprost [Xalatan] 1 drop BOTH EYES HS 07/25/16 10/02/16 Magnesium Oxide [Mag-Ox] 400 mg PO HS 07/25/16 10/02/16 Metoprolol Succinate 100 mg PO DAILY 07/25/16 10/02/16 Mineral Oil/Petrolatum,White 1 appl TP DAILY 07/25/16 10/02/16 [Eucerin Creme] Nitroglycerin [Nitrostat] 0.4 mg SL Q5M PRN 07/25/16 10/02/16 Omeprazole [PriLOSEC] 20 mg PO BIDAC 07/25/16 10/02/16 Tamsulosin [Flomax] 0.4 mg PO DAILY 07/25/16 10/02/16 Losartan [Cozaar] 50 mg PO DAILY 10/02/16 10/02/16 Vit A/Vit C/Vit E/Zinc/Copper 2 each PO DAILY 10/02/16 10/02/16 [Icaps Areds Formula Dr Tablet] Previous Rx's Medication Instructions Recorded Aspirin Enteric Coated [Aspirin EC] 81 mg PO DAILY #30 tablet. 07/29/16 Clopidogrel [Plavix] 75 mg PO DAILY #30 tablet 07/29/16 Furosemide [Lasix] 40 mg PO QPM #0 07/29/16 Furosemide [Lasix] 80 mg PO QAM #0 07/29/16 amLODIPine [Norvasc] 10 mg PO DAILY #60 tablet 07/29/16 Allergies Allergy/AdvReac Type Severity Reaction Status Date / Time pioglitazone [From Actos] Allergy Swelling Verified 11/23/14 16:34 of Lip/Tongue/Throat vancomycin Allergy Swelling Verified 11/23/14 16:34 of Lip/Tongue/Throat All systems ED: reviewed and negative except as stated. Review of Systems: As Per HPI Constitutional: Denies: fever Cardiovascular: Reports: other (Lightheadedness). Denies: chest pain, palpitations Respiratory: Denies: cough, dyspnea Gastrointestinal: Denies: abdominal pain, nausea, vomiting Genitourinary: Denies: urgency Musculoskeletal: Denies: back pain Integumentary: Denies: rash Neurological: Denies: headache Endocrine: Denies: fatigue Past Medical History - Past Medical History Medical history: Reports: arthritis, CHF, COPD, coronary artery disease, dementia, diabetes, GERD, glaucoma, hyperlipidemia, hypertension, myocardial infarction, renal disease Surgical history: Reports: other Psychiatric history: Reports: no psych history - Social History Smoking Status: Former smoker Smokeless Tobacco Status: No Alcohol use: Reports: rarely Drug use: Reports: none Physical Exam - General General appearance: alert, in no apparent distress - Head Head exam: atraumatic, normocephalic - Eye Eye exam: Present: EOMI - ENT ENT exam: normal exam, normal oropharynx - Neck Neck exam: Present: trachea midline. Absent: tenderness, meningismus - Chest Chest inspection: Present: symmetric chest wall rise - Respiratory Respiratory exam: Present: normal lung sounds bilaterally. Absent: respiratory distress - Cardiovascular Cardiovascular exam: Present: normal rhythm, bradycardia - Abdominal Exam Abdominal exam: Present: soft, Non-Tender. Absent: distention, guarding, rebound, rigidity - Extremities Exam Extremities exam: Present: normal capillary refill - Back Exam Back exam: Present: full ROM - Neurological Exam Neurological exam: Present: alert, oriented X3 - Psychiatric Psychiatric exam: Present: normal affect, normal mood - Skin Skin exam: Present: warm, dry, intact Course Vital Signs Temperature 98.8 F 08/12/17 21:50 Pulse Rate 57 08/12/17 21:50 Respiratory Rate 18 08/12/17 21:50 Blood Pressure 157/96 08/12/17 21:50 O2 Sat by Pulse Oximetry 97 08/12/17 21:50 Temperature 98.8 F 08/12/17 21:50 Pulse Rate 53 08/13/17 02:00 Respiratory Rate 18 08/12/17 21:50 Blood Pressure 161/76 08/13/17 02:00 O2 Sat by Pulse Oximetry 93 08/13/17 02:00 Oxygen Delivery Oxygen Delivery Room Air Medical Decision Making - [facility] Narrative Medical decision making narrative: 71-year-old male presents emergency department with concern for short episodes of intermittent bradycardia. Patient has first-degree AV block on electrocardiogram. During his emergency department visit, patient had multiple episodes of brief, short lasting, periods where his heart rate went into the 20s for a couple seconds. They would immediately come back up afterwards. Tracking back at telemetry, is possible that patient may have been going into Second degree Block as he was dropping QRS complexes. Troponin was negative. Patient does not have a leukocytosis. Patient is not anemic. Creatinine is mildly elevated at 2.53. Patient has had mildly elevated TSH as well. I have not started levothyroxine at this time. This is a little above his baseline. It has been higher than this in the past. Patient has been stable throughout his stay here in the emergency department. He has had pads at bedside on an as needed basis. However, the episodes were so short lasting, and patient was stable during his entire stay. They do not have to be used. Atropine was not needed at any time here. I have spoken with cardiology regarding further care of the patient. They agreed to see patient on the floor. Patient was admitted to the hospitalist. Hospitalist requested atropine be ordered on an as-needed basis. Patient to be admitted to stepdown for close observation. Patient agree with plan for admission. Chest X-Ray 08/12/17 22:15 IMPRESSION: No acute cardiopulmonary findings. Atelectasis, scarring or summation artifact at the right lung base. D/ / Bulmaro Rose / Bulmaro Rose Interpreting Provider: Bulmaro Rose - Lab Data Result diagrams: 08/12/17 23:56 08/12/17 23:56 Lab Results 08/12/17 08/12/17 08/12/17 Range/Units 22:55 22:55 23:56 WBC 8.0 (4.3-11.1) K/mcL RBC 4.01 L (4.19-5.50) M/mcL Hgb 12.5 L (12.9-16.9) g/dL Hct 37.8 (37.5-50.1) % MCV 94.3 (83.0-100.0) fL MCH 31.2 (28.0-33.3) pg MCHC 33.1 (31.6-35.5) g/dL RDW 12.6 (11.5-14.5) % Plt Count 158 (140-400) K/mcL MPV 10.2 (9.4-12.4) fL Immature Gran % 1.1 (0-4) % Seg Neutrophils % 58.1 % Lymphocytes % 26.3 % Monocytes % 10.6 % Eosinophils % 3.3 % Basophils % 0.6 % Neutrophils # 4.6 (1.6-8.9) K/mcL Lymphocytes # 2.1 (0.6-4.6) K/mcL Monocytes # 0.8 (0.0-1.3) K/mcL Eosinophils # 0.3 (0.0-0.6) K/mcL Basophils # 0.1 (0.0-0.2) K/mcL Sodium (136-145) mEq/L Potassium (3.5-5.1) mEq/L Chloride (98-107) mEq/L Carbon Dioxide (23-29) mEq/L BUN (8-23) mg/dL Creatinine (0.70-1.30) mg/dL Est GFR ( Amer) (> 60) Est GFR (Non-Af Amer) (> 60) BUN/Creatinine Ratio (6-26) Glucose (70-105) mg/dL Calculated Osmolality (280-300) Calcium (8.6-10.3) mg/dL Troponin I < 0.03 (< 0.04) ng/mL B-Natriuretic Peptide 39 (Less than 100) pg/mL TSH 6.058 H (0.340-5.600) mcIU/mL 08/12/17 Range/Units 23:56 WBC (4.3-11.1) K/mcL RBC (4.19-5.50) M/mcL Hgb (12.9-16.9) g/dL Hct (37.5-50.1) % MCV (83.0-100.0) fL MCH (28.0-33.3) pg MCHC (31.6-35.5) g/dL RDW (11.5-14.5) % Plt Count (140-400) K/mcL MPV (9.4-12.4) fL Immature Gran % (0-4) % Seg Neutrophils % % Lymphocytes % % Monocytes % % Eosinophils % % Basophils % % Neutrophils # (1.6-8.9) K/mcL Lymphocytes # (0.6-4.6) K/mcL Monocytes # (0.0-1.3) K/mcL Eosinophils # (0.0-0.6) K/mcL Basophils # (0.0-0.2) K/mcL Sodium 140 (136-145) mEq/L Potassium 4.9 (3.5-5.1) mEq/L Chloride 106 (98-107) mEq/L Carbon Dioxide 28 (23-29) mEq/L BUN 68 H (8-23) mg/dL Creatinine 2.53 H (0.70-1.30) mg/dL Est GFR ( Amer) 31 L (> 60) Est GFR (Non-Af Amer) 25 L (> 60) BUN/Creatinine Ratio 27 H (6-26) Glucose 89 (70-105) mg/dL Calculated Osmolality 309 H (280-300) Calcium 9.5 (8.6-10.3) mg/dL Troponin I (< 0.04) ng/mL B-Natriuretic Peptide (Less than 100) pg/mL TSH (0.340-5.600) mcIU/mL - EKG Data EKG #1 EKG attestation: Yes I reviewed and interpreted this EKG. EKG results narrative: 21:53 Ventricular rate 59 bpm, MD interval 254 ms, QRS duration 97 ms, QT 399 ms, QTC 398 ms, left axis deviation. Sinus bradycardia with first-degree AV block. No evidence of any ischemic ST changes on this electrocardiogram when compared with the previous one obtained on 07/25/2016.
[2017-08-12 23:20] LABS: Troponin I < 0.03 ng/mL (< 0.04)
[2017-08-12 23:33] LABS: Thyroid Stimulating Hormone 6.058 mcIU/mL (0.340-5.600)
[2017-08-13 01:11] LABS: Basophils # 0.1 K/mcL (0.0-0.2); Basophils % 0.6 %; Eosinophils # 0.3 K/mcL (0.0-0.6); Eosinophils % 3.3 %; Hematocrit 37.8 % (37.5-50.1); Hemoglobin 12.5 g/dL (12.9-16.9); Immature Granulocytes % 1.1 % (0-4); Lymphocytes # 2.1 K/mcL (0.6-4.6); Lymphocytes % 26.3 %; Mean Corpuscular HGB Conc 33.1 g/dL (31.6-35.5); Mean Corpuscular Hemoglobin 31.2 pg (28.0-33.3); Mean Corpuscular Volume 94.3 fL (83.0-100.0); Mean Platelet Volume 10.2 fL (9.4-12.4); Monocytes # 0.8 K/mcL (0.0-1.3); Monocytes % 10.6 %; Neutrophils # 4.6 K/mcL (1.6-8.9); Platelet Count 158 K/mcL (140-400); Red Blood Count 4.01 M/mcL (4.19-5.50); Red Cell Distribution Width 12.6 % (11.5-14.5); Segmented Neutrophils % 58.1 %
--- NOTE | 2017-08-13 01:13 | Emergency Department Note ---
Disposition Clinical Impression: Symptomatic bradycardia, Elevated TSH, Acute renal insufficiency Disposition: Admitted As Inpatient Condition: Good General Adult HPI - General Chief complaint: ED Arrhythmia/Palpitations Stated complaint: low heart rate Time Seen by Provider: 08/12/17 22:17 Source: patient, EMS Nursing Notes Reviewed: Yes Vital Signs Reviewed: Yes - History of Present Illness Pain Scale: 0 - Related Data Home Medications Medication Instructions Recorded Confirmed Albuterol Sulfate [Albuterol 2 puff IH QID PRN 07/25/16 10/02/16 Inhaler] Atorvastatin [Lipitor] 40 mg PO HS 07/25/16 10/02/16 Cetirizine HCl [Zyrtec] 10 mg PO DAILY 07/25/16 10/02/16 Chlorhexidine Gluconate [Peridex] 15 ml MM BID 07/25/16 10/02/16 Dextrose [Glucose] 16 gm PO AD PRN 07/25/16 10/02/16 Febuxostat [Uloric] 80 mg PO DAILY 07/25/16 10/02/16 Finasteride [Proscar] 5 mg PO DAILY 07/25/16 10/02/16 Folic Acid 1 mg PO DAILY 07/25/16 10/02/16 Insulin ASPART [NovoLOG] 12 unit SQ QAM MDD Breakfast 07/25/16 10/02/16 Insulin ASPART [NovoLOG] 15 unit SQ BID MDD Lunch & Dinner 07/25/16 10/02/16 Insulin Glargine [Lantus] 30 unit SQ HS 07/25/16 10/02/16 Insulin Glargine [Lantus] 35 unit SQ QAM 07/25/16 10/02/16 Latanoprost [Xalatan] 1 drop BOTH EYES HS 07/25/16 10/02/16 Magnesium Oxide [Mag-Ox] 400 mg PO HS 07/25/16 10/02/16 Metoprolol Succinate 100 mg PO DAILY 07/25/16 10/02/16 Mineral Oil/Petrolatum,White 1 appl TP DAILY 07/25/16 10/02/16 [Eucerin Creme] Nitroglycerin [Nitrostat] 0.4 mg SL Q5M PRN 07/25/16 10/02/16 Omeprazole [PriLOSEC] 20 mg PO BIDAC 07/25/16 10/02/16 Tamsulosin [Flomax] 0.4 mg PO DAILY 07/25/16 10/02/16 Losartan [Cozaar] 50 mg PO DAILY 10/02/16 10/02/16 Vit A/Vit C/Vit E/Zinc/Copper 2 each PO DAILY 10/02/16 10/02/16 [Icaps Areds Formula Dr Tablet] Previous Rx's Medication Instructions Recorded Aspirin Enteric Coated [Aspirin EC] 81 mg PO DAILY #30 tablet. 07/29/16 Clopidogrel [Plavix] 75 mg PO DAILY #30 tablet 07/29/16 Furosemide [Lasix] 40 mg PO QPM #0 07/29/16 Furosemide [Lasix] 80 mg PO QAM #0 07/29/16 amLODIPine [Norvasc] 10 mg PO DAILY #60 tablet 07/29/16 Allergies Allergy/AdvReac Type Severity Reaction Status Date / Time pioglitazone [From Actos] Allergy Swelling Verified 11/23/14 16:34 of Lip/Tongue/Throat vancomycin Allergy Swelling Verified 11/23/14 16:34 of Lip/Tongue/Throat Past Medical History - Past Medical History Medical history: Reports: arthritis, CHF, COPD, coronary artery disease, dementia, diabetes, GERD, glaucoma, hyperlipidemia, hypertension, myocardial infarction, renal disease Surgical history: Reports: other Psychiatric history: Reports: no psych history - Social History Smoking Status: Former smoker Smokeless Tobacco Status: No Alcohol use: Reports: rarely Drug use: Reports: none Physical Exam - General General appearance: alert, in no apparent distress Course Vital Signs Temperature 98.8 F 08/12/17 21:50 Pulse Rate 57 08/12/17 21:50 Respiratory Rate 18 08/12/17 21:50 Blood Pressure 157/96 08/12/17 21:50 O2 Sat by Pulse Oximetry 97 08/12/17 21:50 Temperature 97.6 F 08/13/17 04:15 Pulse Rate 64 08/13/17 04:15 Respiratory Rate 18 08/13/17 04:15 Blood Pressure 176/82 08/13/17 04:15 O2 Sat by Pulse Oximetry 96 08/13/17 04:15 Oxygen Delivery Oxygen Delivery Room Air Medical Decision Making - Lab Data Result diagrams: 08/12/17 23:56 08/12/17 23:56 Lab Results 08/12/17 08/12/17 08/12/17 Range/Units 22:55 22:55 23:56 WBC 8.0 (4.3-11.1) K/mcL RBC 4.01 L (4.19-5.50) M/mcL Hgb 12.5 L (12.9-16.9) g/dL Hct 37.8 (37.5-50.1) % MCV 94.3 (83.0-100.0) fL MCH 31.2 (28.0-33.3) pg MCHC 33.1 (31.6-35.5) g/dL RDW 12.6 (11.5-14.5) % Plt Count 158 (140-400) K/mcL MPV 10.2 (9.4-12.4) fL Immature Gran % 1.1 (0-4) % Seg Neutrophils % 58.1 % Lymphocytes % 26.3 % Monocytes % 10.6 % Eosinophils % 3.3 % Basophils % 0.6 % Neutrophils # 4.6 (1.6-8.9) K/mcL Lymphocytes # 2.1 (0.6-4.6) K/mcL Monocytes # 0.8 (0.0-1.3) K/mcL Eosinophils # 0.3 (0.0-0.6) K/mcL Basophils # 0.1 (0.0-0.2) K/mcL Sodium (136-145) mEq/L Potassium (3.5-5.1) mEq/L Chloride (98-107) mEq/L Carbon Dioxide (23-29) mEq/L BUN (8-23) mg/dL Creatinine (0.70-1.30) mg/dL Est GFR ( Amer) (> 60) Est GFR (Non-Af Amer) (> 60) BUN/Creatinine Ratio (6-26) Glucose (70-105) mg/dL Calculated Osmolality (280-300) Calcium (8.6-10.3) mg/dL Troponin I < 0.03 (< 0.04) ng/mL B-Natriuretic Peptide 39 (Less than 100) pg/mL TSH 6.058 H (0.340-5.600) mcIU/mL 08/12/17 Range/Units 23:56 WBC (4.3-11.1) K/mcL RBC (4.19-5.50) M/mcL Hgb (12.9-16.9) g/dL Hct (37.5-50.1) % MCV (83.0-100.0) fL MCH (28.0-33.3) pg MCHC (31.6-35.5) g/dL RDW (11.5-14.5) % Plt Count (140-400) K/mcL MPV (9.4-12.4) fL Immature Gran % (0-4) % Seg Neutrophils % % Lymphocytes % % Monocytes % % Eosinophils % % Basophils % % Neutrophils # (1.6-8.9) K/mcL Lymphocytes # (0.6-4.6) K/mcL Monocytes # (0.0-1.3) K/mcL Eosinophils # (0.0-0.6) K/mcL Basophils # (0.0-0.2) K/mcL Sodium 140 (136-145) mEq/L Potassium 4.9 (3.5-5.1) mEq/L Chloride 106 (98-107) mEq/L Carbon Dioxide 28 (23-29) mEq/L BUN 68 H (8-23) mg/dL Creatinine 2.53 H (0.70-1.30) mg/dL Est GFR ( Amer) 31 L (> 60) Est GFR (Non-Af Amer) 25 L (> 60) BUN/Creatinine Ratio 27 H (6-26) Glucose 89 (70-105) mg/dL Calculated Osmolality 309 H (280-300) Calcium 9.5 (8.6-10.3) mg/dL Troponin I (< 0.04) ng/mL B-Natriuretic Peptide (Less than 100) pg/mL TSH (0.340-5.600) mcIU/mL Attestation Statement - Attestation Attestation: I, Gerson Love MD, personally evaluated this patient and discussed their management with the resident physician. I reviewed the resident's note and agree with the documented findings, medical decision making, and plan of care. 71-year-old male presents to the emergency department with a complaint of having intermittent spells of dizziness and lightheadedness for the past month or more. These seem to be getting progressively worse. He was seen at the [facility] and had some type of outpatient heart monitor applied which she was supposed to wear for 2 weeks however he states after 2 days it fell off. This was a few weeks ago. Apparently he received a call today advising that they had evaluated the monitor and it showed he was having episodes of bradycardia with heart rate down into the teens. He was advised to go directly to the [facility] for evaluation however by the time he arrived there this evening their urgent care clinic and already closed and he was brought here for evaluation. Denies any chest pain with the episodes. No shortness of breath or diaphoresis. There has been no syncope. On examination patient is a well-developed well-nourished well-appearing elderly male in no acute distress. He is alert and oriented 3. There is no cyanosis or diaphoresis. Breath sounds are clear and equal bilaterally. Heart regular with a mild bradycardia. Abdomen soft and nontender with normal bowel sounds. Labs reviewed. EKG shows sinus bradycardia with first-degree AV block with ventricular rate of 59. No acute ST segment elevation or depression. Patient was noted to have intermittent episodes on the monitor of a change in rhythm with significant drop in heart rate down into the 20s and 30s which only lasted a brief time and then he returned into the 50s. Dr. Mauricio discussed the patient with the urology physician assistant javascript front end developer, Dr. Jonathan Alvarado. The hospitalist, Dr. Johnston, was consulted and accepted admission of the patient.
[2017-08-13 01:32] LABS: Calcium 9.5 mg/dL (8.6-10.3); Potassium 4.9 mEq/L (3.5-5.1)
[2017-08-13] MEDS ORDERED: 0.9 % Sodium Chloride 1,000 ML IVC ONE (01:36)
[2017-08-13] MEDS ORDERED: *HR* Atropine Sulfate 1 MG/10 ML SYRINGE IVP PRN ×2 (02:09→03:44)
--- NOTE | 2017-08-13 04:03 | Internal Med History&Physical ---
Date of Encounter: 08/13/17 Time of Encounter: 04:30 Internal Medicine - H&P: HPI Chief complaint: Dizziness History of present illness: Mr. Elliott is a 71 year old male with past medical history of COPD, CAD, dementia, diabetes, hypertension, CKD, and CHF who presented to the ED after receiving a call about his event monitor after turning it in that he had dropped down to the teens a couple of times and needed to go to the hospital. Patient has been complaining of dizziness for 1 month. He has felt a flushing feeling and light headed. He denies syncope or palpitations. Upon arrival to the ED, patient's heart rate was 54 with a blood pressure of 160 /88. Labs showed hemoglobin of 12.5(baseline), creatinine of 2.53(previous 1.54 ), TSH 6.058 to Patient was given 1 dose of atropine 0.5 mg and 1 L bolus of normal saline. Per ED note EKG showed Ventricular rate 59 bpm, MS interval 254 ms, QRS duration 97 ms, QT 399 ms, QTC 398 ms, left axis deviation. Sinus bradycardia with first-degree AV block. No evidence of any ischemic ST changes on this electrocardiogram when compared with the previous one obtained on 2016. Chest x-ray showed no acute process. Patient was admitted to the floor as he has symptomatic bradycardia and will most likely require pacemaker placement. Last Echo 08/13/16: 60-65% moderate to severe left atrial enlargement, mild left ventricular diastolic dysfunction. Past Med Surg Social Fam HX - Past Medical History Medical history: arthritis, CHF, COPD, coronary artery disease, dementia, diabetes, GERD, glaucoma, hyperlipidemia, hypertension, myocardial infarction, renal disease Psychiatric history: no psych history - Past Surgical History Surgical History: other Additional surgical history: foot surgery, hernia, - Social History Smoking Status: Former smoker Smokeless Tobacco Status: No Alcohol use: rarely Drug use: none - Family History Brother Adopted: No Family Member Ethnicity: Non- Living Status: Hx Family Cardiac Disorders: Yes (HTN, Hyperlipidemia) Hx Family Respiratory Disorders: No Hx Family Cancer: No Hx Family GI Disorders: No Hx Family Endocrine Disorder: No Hx Family Neuromuscular Disorders: Yes (CVA) Hx Family Neurologic Disorders: No Hx Family HEENT Disorders: No Hx Family Autoimmune Disorders: No Internal Medicine - H&P: Meds Albuterol Sulfate [Albuterol Inhaler] 2 puff IH QID PRN 07/25/16 [History] Atorvastatin [Lipitor] 40 mg PO HS 07/25/16 [History] Cetirizine HCl [Zyrtec] 10 mg PO DAILY 07/25/16 [History] Chlorhexidine Gluconate [Peridex] 15 ml MM BID 07/25/16 [History] Dextrose [Glucose] 16 gm PO AD PRN 07/25/16 [History] Febuxostat [Uloric] 80 mg PO DAILY 07/25/16 [History] Finasteride [Proscar] 5 mg PO DAILY 07/25/16 [History] Folic Acid 1 mg PO DAILY 07/25/16 [History] Insulin ASPART [NovoLOG] 12 unit SQ QAM MDD Breakfast 07/25/16 [History] Insulin ASPART [NovoLOG] 15 unit SQ BID MDD Lunch & Dinner 07/25/16 [History] Insulin Glargine [Lantus] 30 unit SQ HS 07/25/16 [History] Insulin Glargine [Lantus] 35 unit SQ QAM 07/25/16 [History] Latanoprost [Xalatan] 1 drop BOTH EYES HS 07/25/16 [History] Magnesium Oxide [Mag-Ox] 400 mg PO HS 07/25/16 [History] Metoprolol Succinate 100 mg PO DAILY 07/25/16 [History] Mineral Oil/Petrolatum,White [Eucerin Creme] 1 appl TP DAILY 07/25/16 [History] Nitroglycerin [Nitrostat] 0.4 mg SL Q5M PRN 07/25/16 [History] Omeprazole [PriLOSEC] 20 mg PO BIDAC 07/25/16 [History] Tamsulosin [Flomax] 0.4 mg PO DAILY 07/25/16 [History] Aspirin Enteric Coated [Aspirin EC] 81 mg PO DAILY #30 tablet. 07/29/16 [Rx] Clopidogrel [Plavix] 75 mg PO DAILY #30 tablet 07/29/16 [Rx] Furosemide [Lasix] 40 mg PO QPM #0 07/29/16 [Rx] Furosemide [Lasix] 80 mg PO QAM #0 07/29/16 [Rx] amLODIPine [Norvasc] 10 mg PO DAILY #60 tablet 07/29/16 [Rx] Losartan [Cozaar] 50 mg PO DAILY 10/02/16 [History] Vit A/Vit C/Vit E/Zinc/Copper [Icaps Areds Formula Dr Tablet] 2 each PO DAILY [History] 3 Allergy/AdvReac Type Severity Reaction Status Date / Time pioglitazone [From Actos] Allergy Swelling Verified 11/23/14 16:34 of Lip/Tongue/Throat vancomycin Allergy Swelling Verified 11/23/14 16:34 of Lip/Tongue/Throat All Systems PM: A 10-system review of systems was performed and is negative for pertinent findings except as documented above in the HPI. - Constitutional Vitals: Temp Pulse Resp BP Pulse Ox 98.8 F 57 18 169/61 95 08/12/17 21:50 08/13/17 03:00 08/13/17 03:54 08/13/17 03:54 08/13/17 03:00 Exam: Constitutional: Alert, in no acute distress Head: Normocephalic, atraumatic Heart: bradycardic, normal rhythm, no murmurs Lungs: Clear to auscultation, no wheezes, rales, or rhonchi Abdomen: Soft, nondistended, nontender, bowel sounds present and normal, no guarding or rigidity. Extremities: No edema, No clubbing, radial pulse +2/4, capillary refill <2sec. Skin: Skin warm and dry, no lesions, no rashes, no jaundice Neurologic: Cranial nerves II through XII grossly intact, strength 5/5 in all extremitites Psych: Cooperative with exam, good eye contact, cognitive function intact, speech clear, thought process logical, and goal directed Internal Med - H&P Results - Labs CBC & Chem 7: 08/12/17 23:56 08/13/17 05:15 - Assessment and plan (1) Bradycardia Current Visit: Yes Status: Acute Assessment and plan: Minimal HR 39. Currently resting in the 50s. Symptomatic bradycardia. EKG showed first degree AV block. Plan: - Atroponin 0.25, if bradycardia less than 40bpm - cardiology consult placed in the ED, appreciate recommendations - Diet: NPO for possible pacemaker today. (2) CKD (chronic kidney disease), stage III Current Visit: No Status: Chronic Assessment and plan: CKD with FINN. Will continue fluids NS 100ml/hr as patient is NPO also and recheck Creatinine. (3) Diabetes Current Visit: No Status: Chronic Assessment and plan: At home takes Lantus 38 untis BID. Humalog 16U breakfast, 18U lunch , 20U dinner. 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 No SOB. Will continue to monitor as patient is getting IV fluids. Qualifiers: Heart failure type: diastolic Heart failure chronicity: chronic Qualified Code(s): I50.32 - Chronic diastolic (congestive) heart failure (5) DVT prophylaxis Current Visit: Yes Status: Acute Assessment and plan: ICDs until after proceedure - Time Spent With Patient Total time spent is greater than 50% in coordination of care (as documented) at patient's floor/unit and/or counseling patient:
[2017-08-13] MEDS ORDERED: Acetaminophen 325 MG TABLET PO PRN (04:05)
[2017-08-13] MEDS ORDERED: Naloxone 0.4 MG/ML INJ IVP PRN (04:05)
[2017-08-13 05:50] LABS: Magnesium 2.1 mg/dL (1.6-2.6); Phosphorous 4.6 mg/dL (2.7-4.5)
[2017-08-13 05:51] LABS: Potassium 4.8 mEq/L (3.5-5.1)
[2017-08-13] MEDS ORDERED: *HR* Dextrose 50 % in Water (Syg) 50 ML SYRINGE IVP PRN (06:46)
[2017-08-13] MEDS ORDERED: Dextrose Gel 15 GM/37.5 ML TUBE PO PRN ×2 (06:46)
[2017-08-13] MEDS ORDERED: D5% in Water 1,000 ML IVC PRN (06:46)
--- NOTE | 2017-08-13 06:50 | Event Note ---
Date of Encounter: 08/13/17 Time of Encounter: 05:00 I have seen and examined this patient independently. I have discussed with resident physician Dr. Díaz regarding the management plan. Agree with the documentation. Patient presented to ER with symptomatic bradycardia. Will place patient on closely continuous cardiac monitoring. Atropin IV when necessary for bradycardia. Hold beta blockers. Cardiology consult in a.m. Keep nothing by mouth at this point in case patient need procedures.
[2017-08-13] MEDS ORDERED: 0.9 % Sodium Chloride 1,000 ML IVC SCH (07:00)
[2017-08-13] MEDS ORDERED: Insulin LISPRO 300 UNITS/3 ML VIAL SQ SCH ×3 (07:30→21:00)
--- NOTE | 2017-08-13 09:33 | Event Note ---
Date of Encounter: 08/13/17 Time of Encounter: 09:30 Seen and assessed. Agree with plan per nighttime hospitalist. Follow up cardiology recs for symptomatic bradycardia
--- NOTE | 2017-08-13 11:11 | Cardiology Consult Note ---
Date of Encounter: 08/13/17 Time of Encounter: 09:08 Assessment and Plan (1) Bradycardia Current Visit: Yes Status: Acute Sent from [place] for bradycardia on holter ordered for dizziness. Holter ordered for our review. Currently sinus bradycardia HR 55 BPM. Telemetry review shows nocturnal bradycardia with HR as low as 30 BPM. Pauses up to 4.4 seconds during nocturnal hours. Reports having some dizziness while laying in bed. Plan: Hold AV flex blockers as you are doing. Continue telemetry. TSH mildly elevated, check T3 and T4. Will check TTE. Holter ordered for our review. Further recommendations to follow. (2) CAD (coronary artery disease) Current Visit: No Status: Acute H/o [place] and PCI to the ramus. 07/2016. LHC from 07/2016 reviewed-20% stenosis in the Proximal LAD. 20% stenosis in the Mid LAD. 40% stenosis in the Mid Circumflex. 80% stenosis in the Ramus. S/p PTCA/Igor to mid ramus. 50% stenosis in the Distal RCA remaining. TTE showed preserved EF. LA was mod-severely dilated. No significant valvular disease. Continue asa,plavix, statin. Hold bb for bradycardia. Qualifiers: Coronary Disease-Associated Artery/Lesion type: [place] artery [place] vs. transplanted heart: [place] heart Associated angina: without angina Qualified Code(s): I25.10 - Atherosclerotic heart disease of [place] coronary artery without angina pectoris (3) Afib Current Visit: Yes Status: Acute Noted to have breif episode of afib during hospital stay for [place] 07/2016. No recurrent known per patient. AC was deffered at that time due to DAPT and occurrence less than 48 hours. Holter results pending. Currently sinus bradycardia. CHADS VASC= 4. WIll discuss assisted AC based on holter results and hospital course. Qualifiers: Atrial fibrillation type: unspecified Qualified Code(s): I48.91 - Unspecified atrial fibrillation Discussion w patient/family: The assessment and plan as outlined above was discussed with the patient and/or family members who expressed understanding and agreement. All questions were answered. Thank you for involving us in the care of your patient. Please call with any questions. History of Present Illness Consult date: 08/13/17 Requesting physician: Bryant Mauricio Consult reason: symptomatic bradycardia Chief complaint: intermittent dizziness History of present illness: Mr. Elliott is a 71 year old male with past medical history of CAD s/p [place] and PCI to the ramus in July 2016, madeleine correa seen with [place], LINDA on c-pap, HTN, CKD stage III, HLD, and DM type II who presents from [place] with abnormal holter monitor. Per ED reports holter showed HR in the teens. No holter available for my review at this time. Telemetry does show occasional nocturnal HR in the 30's and pauses up to 4.4 seconds. Possible Mobitz type II second degree block. He is on metoprolol succinate 100 mg daily at home. Metoprolol held today. He c/o intermittent dizziness lasting a few second at a time that occurs while sitting. Reports dizziness while lying in bed last night. Denies chest pain or palpitations. Past Med Surg Social Fam HX - Past Medical History Medical history: arthritis, CHF, COPD, coronary artery disease, dementia, diabetes, GERD, glaucoma, hyperlipidemia, hypertension, myocardial infarction, renal disease Psychiatric history: no psych history - Past Surgical History Surgical History: other Additional surgical history: foot surgery, hernia, - Social History Smoking Status: Former smoker Smokeless Tobacco Status: No Alcohol use: rarely Drug use: none - Family History Brother Adopted: [place]: Demetrius Elliott Family Member Ethnicity: Non- Living Status: Age at : 61 Cause of : [place] Hx Family Cardiac Disorders: Yes (HTN, Hyperlipidemia) Hx Family Respiratory Disorders: No Hx Family Cancer: No Hx Family GI Disorders: No Hx Family Endocrine Disorder: No Hx Family Neuromuscular Disorders: Yes (CVA) Hx Family Neurologic Disorders: No Hx Family HEENT Disorders: No Hx Family Autoimmune Disorders: No Medications and Allergies Albuterol Sulfate [Albuterol Inhaler] 2 puff IH QID PRN 07/25/16 [History] Atorvastatin [Lipitor] 40 mg PO HS 07/25/16 [History] Cetirizine HCl [Zyrtec] 10 mg PO DAILY 07/25/16 [History] Chlorhexidine Gluconate [Peridex] 15 ml MM BID 07/25/16 [History] Dextrose [Glucose] 16 gm PO AD PRN 07/25/16 [History] Febuxostat [Uloric] 80 mg PO DAILY 07/25/16 [History] Finasteride [Proscar] 5 mg PO DAILY 07/25/16 [History] Folic Acid 1 mg PO DAILY 07/25/16 [History] Insulin ASPART [NovoLOG] 16 unit SQ QAM MDD Breakfast 07/25/16 [History] Insulin ASPART [NovoLOG] 18 unit SQ DAILY MDD NOON 07/25/16 [History] Insulin Glargine [Lantus] 38 unit SQ BID 07/25/16 [History] Latanoprost [Xalatan] 1 drop BOTH EYES HS 07/25/16 [History] Magnesium Oxide [Mag-Ox] 400 mg PO HS 07/25/16 [History] Metoprolol Succinate 100 mg PO DAILY 07/25/16 [History] Mineral Oil/Petrolatum,White [Eucerin Creme] 1 appl TP DAILY 07/25/16 [History] Nitroglycerin [Nitrostat] 0.4 mg SL Q5M PRN 07/25/16 [History] Omeprazole [PriLOSEC] 20 mg PO BIDAC 07/25/16 [History] Tamsulosin [Flomax] 0.4 mg PO DAILY 07/25/16 [History] Aspirin Enteric Coated [Aspirin EC] 81 mg PO DAILY #30 tablet. 07/29/16 [Rx] Clopidogrel [Plavix] 75 mg PO DAILY #30 tablet 07/29/16 [Rx] Furosemide [Lasix] 40 mg PO QPM #0 07/29/16 [Rx] Furosemide [Lasix] 80 mg PO QAM #0 07/29/16 [Rx] amLODIPine [Norvasc] 10 mg PO DAILY #60 tablet 07/29/16 [Rx] Losartan [Cozaar] 50 mg PO DAILY 10/02/16 [History] Vit A/Vit C/Vit E/Zinc/Copper [Icaps Areds Formula Dr Tablet] 2 each PO DAILY [History] Insulin ASPART [NovoLOG] 20 unit SQ DAILY MDD DINNER 08/13/17 [History] 3 Allergy/AdvReac Type Severity Reaction Status Date / Time pioglitazone [From Actos] Allergy Swelling Verified 08/13/17 09:20 of Lip/Tongue/Throat vancomycin Allergy Swelling Verified 08/13/17 09:20 of Lip/Tongue/Throat All Systems Review: The remainder of the systems were reviewed and are negative Physical Examination Vital Signs, Last 4 Hours Temp Pulse Resp BP Pulse Ox 08/13/17 10:38 97.6 F 52 16 163/67 96 General: Conversant, No Apparent Distress HEENT: Atraumatic, Normocephaly, Mucus Membranes Moist Neck: No JVD, Normal carotid pulses Cardiac: Reg Rate and Rhythm, Normal S1 and S2, No Murmur Lungs: Normal Breath Sounds, No Wheeze, Rales, Rhonchi Neuro: Alert and responsive, No focal deficits noted Abdomen: Soft, Non-Tender Skin: No rashes noted on visualized skin Musculoskeletal: No Chest Wall Tenderness Extremities: No Clubbing, No Cyanosis, No Edema, Normal Pulses Results 08/12/17 23:56 08/13/17 05:15 Lab Results 08/13/17 08/13/17 05:15 05:15 Sodium 141 Potassium 4.8 Chloride 109 H Carbon Dioxide 25 BUN 65 H Creatinine 2.32 H Glucose 112 H Calcium 9.0 Magnesium 2.1 - Imaging and Cardiology Echo: pending, report reviewed Cardiac cath: report reviewed Holter: other (ordered from [place]) Consult Discharge Plan - Plan [facility]errals: [facility] [Primary Care Provider] -
[2017-08-13] MEDS: amLODIPine 5 MG TABLET PO SCH (11:28)
[2017-08-13] MEDS: Finasteride 5 MG TABLET PO SCH (11:28)
[2017-08-13] MEDS: Aspirin Enteric Coated 81 MG Tablet PO SCH (11:28)
[2017-08-13 12:26] LABS: Triiodothyronine (T3) Free 6.53 pg/mL (2.50-3.90)
[2017-08-13 15:08] LABS: Triiodothyronine (T3) Free 6.23 pg/mL (2.50-3.90)
[2017-08-13] MEDS: Febuxostat [Uloric] 80 MG PO SCH (17:25)
[2017-08-13] MEDS: Insulin LISPRO 300 UNITS/3 ML VIAL SQ SCH ×2 (17:25→17:26)
--- NOTE | 2017-08-13 17:41 | Electrocardiograph Report ---
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
--- NOTE | 2017-08-13 17:51 | Electrocardiograph Report ---
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
[2017-08-13] MEDS ORDERED: Insulin DETEMIR 100 UNIT/ML X5UNITS SQ SCH (21:00)
[2017-08-13] MEDS: Insulin DETEMIR 100 UNIT/ML X5UNITS SQ SCH (21:19)
[2017-08-14 05:04] LABS: Calcium 8.3 mg/dL (8.6-10.3); Potassium 5.4 mEq/L (3.5-5.1)
[2017-08-14 06:24] LABS: Basophils % 0.4 %; Eosinophils # 0.3 K/mcL (0.0-0.6); Eosinophils % 3.9 %; Hematocrit 36.3 % (37.5-50.1); Hemoglobin 12.2 g/dL (12.9-16.9); Immature Granulocytes % 0.8 % (0-4); Lymphocytes # 1.5 K/mcL (0.6-4.6); Mean Corpuscular HGB Conc 33.6 g/dL (31.6-35.5); Mean Corpuscular Hemoglobin 31.6 pg (28.0-33.3); Monocytes # 0.7 K/mcL (0.0-1.3); Monocytes % 9.1 %; Neutrophils # 4.7 K/mcL (1.6-8.9); Platelet Count 142 K/mcL (140-400); Red Blood Count 3.86 M/mcL (4.19-5.50); Red Cell Distribution Width 12.5 % (11.5-14.5); Segmented Neutrophils % 64.8 %
[2017-08-14] MEDS: Insulin LISPRO 300 UNITS/3 ML VIAL SQ SCH ×2 (09:19→12:00)
[2017-08-14] MEDS: amLODIPine 5 MG TABLET PO SCH (09:21)
[2017-08-14] MEDS: Aspirin Enteric Coated 81 MG Tablet PO SCH (09:21)
[2017-08-14] MEDS: Febuxostat [Uloric] 80 MG PO SCH (09:21)
[2017-08-14] MEDS: Finasteride 5 MG TABLET PO SCH (09:21)
[2017-08-14] MEDS: Insulin DETEMIR 100 UNIT/ML X5UNITS SQ SCH (09:31)
--- NOTE | 2017-08-14 10:18 | Internal Med Progress Note ---
Date of Encounter: 08/14/17 Time of Encounter: 10:15 - Assessment and plan (1) Bradycardia Status: Acute Assessment and plan: Minimal HR 39. Currently resting in the 60s. Symptomatic bradycardia. EKG showed first degree AV block. Cardiology following. TTE done came back with normal EF and no significant valvular abnormalities. Continue holding metoprolol. Follow cardio recs (2) CAD (coronary artery disease) Status: Acute Assessment and plan: Continue aspirin and statin therapy. Hold plavix for possible procedure Qualifiers: Coronary Disease-Associated Artery/Lesion type: [place] artery [place] vs. transplanted heart: [place] heart Associated angina: without angina Qualified Code(s): I25.10 - Atherosclerotic heart disease of [place] coronary artery without angina pectoris (3) CKD (chronic kidney disease), stage III Status: Chronic Assessment and plan: CKD with FINN. Will continue fluids NS 100ml/hr. Monitor creatinine. (4) Diabetes Status: Chronic Assessment and plan: At home takes Lantus 38 untis BID. Humalog 16U breakfast, 18U lunch , 20U dinner. Continue BID lantus and humalog sliding scale. 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 No SOB. Will continue to monitor as patient is getting IV fluids. Qualifiers: Heart failure type: diastolic Heart failure chronicity: chronic Qualified Code(s): I50.32 - Chronic diastolic (congestive) heart failure (7) Subclinical hypothyroidism Status: Acute Assessment and plan: TSH elevated at 6. free t4 WNL. No further intervention - Time Spent With Patient Total time spent is greater than 50% in coordination of care (as documented) at patient's floor/unit and/or counseling patient: - Subjective Interval history: No acute events overnight - Constitutional Vitals: Temp Pulse Resp BP Pulse Ox 97.9 F 61 17 156/66 95 08/14/17 06:51 08/14/17 06:51 08/14/17 06:51 08/14/17 06:51 08/14/17 09:43 - Head Head exam: Present: atraumatic, normocephalic - Eye Eye exam: Present: PERRL, conjuntiva pink, sclera anicteric Pupils: Present: PERRL - Neck Neck exam general surgery: Present: supple, trachea midline. Absent: lymphadenopathy - Respiratory Respiratory exam: Present: CTAB. Absent: accessory muscle use, rales, rhonchi, wheezes - Cardiovascular Cardiovascular exam: Present: RRR, +S1, +S2. Absent: diastolic murmur, gallop, rubs, systolic murmur - GI/Abdominal GI/Abdominal exam: Present: normal bowel sounds, soft, no peritoneal signs. Absent: distended, tenderness - Extremities Exam Extremities exam: Present: warm, radial pulses palpable and symmetrical. Absent : calf tenderness, cyanotic, pedal edema - Neurological Exam Neurological exam: Present: CN II-XII intact, oriented X3, no focal deficits. Absent: pronater drift, facial droop, speech deficit - Skin Skin exam: Present: dry, intact Internal Medicine: Result - Labs CBC & Chem 7: 08/14/17 06:01 08/14/17 04:17 Labs: Short CBC 08/14/17 Range/Units 06:01 WBC 7.2 (4.3-11.1) K/mcL Hgb 12.2 L (12.9-16.9) g/dL Hct 36.3 L (37.5-50.1) % Plt Count 142 (140-400) K/mcL Neutrophils # 4.7 (1.6-8.9) K/mcL BMP 08/13/17 08/14/17 05:15 04:17 Sodium 141 137 Potassium 4.8 5.4 H Chloride 109 H 111 H Carbon Dioxide 25 20 L BUN 65 H 60 H Creatinine 2.32 H 1.94 H Glucose 112 H 141 H Calcium 9.0 8.3 L - Impressions Impressions Echocardiogram 08/13/17 11:22 Impressions: LVEF 60%. Mild left ventricular diastolic dysfunction. Dilated RV, normal function. No significant valvular dysfunction. No pulmonary hypertension. Left Ventricular Wall Motion: Rest Echo Findings All wall segments showed normal motion. Findings: Study Quality * Technically challenging due to body habitus. ECG Findings * Sinus bradycardia. Left Ventricle * LVEF 60%. * Mild left ventricular diastolic dysfunction. * Normal LV chamber size. * LV wall thickness measurements not well obtained. Right Ventricle * Dilated RV, normal function. Left Atrium * Normal left atrial size. Right Atrium * Normal right atrial size. Mitral Valve * Normal mitral valve structure. * Mild mitral annular calcification * No mitral regurgitation. * No mitral stenosis. Aortic Valve * No aortic regurgitation. * Trileaflet aortic valve. * No aortic stenosis. Tricuspid Valve * Tricuspid valve not well visualized. * Trace tricuspid regurgitation. * Estimated RA pressure is 3 mmHg. * Estimated RVSP is 30 mmHg. * No pulmonary hypertension. Pulmonic Valve * Pulmonic valve is not well visualized. * No pulmonic stenosis. * No pulmonic regurgitation. Pulmonary Artery * Pulmonary artery not well visualized. Aorta * Not well visualized. Pericardium * There is no pericardial effusion present. Interatrial Septum * No evidence of PFO by color Doppler. IVC * Normal IVC dimensions and inspiratory collapse. - VTE Documentation of Mechanical Device: Intermittent pneumatic compression device Consult Discharge Plan - Plan Instructions: Myocardial Infarction (DC), Heart Failure (DC), Atrial Fibrillation (DC), Hypothyroidism (DC), Diabetes Mellitus Type 2 in Adults (DC) , Chronic Hypertension (DC), Bradycardia (DC), Bradycardia (GEN) [facility]errals: [facility] [Primary Care Provider] - 08/19/17 1:30 pm
[2017-08-14 10:55] VITALS: BP 169/69
--- NOTE | 2017-08-14 11:28 | Cardiology Progress Note ---
Date of Encounter: 08/14/17 Time of Encounter: 11:17 Assessment and Plan (1) Bradycardia Current Visit: Yes Status: Acute Sent from [place] for bradycardia on holter ordered for dizziness. Holter monitor reviewed. There was a 5.1 second pause seen and possible heart block with the pause and HR 12 at that time. Mobitz type I seen. Underlying rhythm was SR with first degree AV block. No rhthm strips sent with report and timing of pause was not specified. During his hospital stay a 4.4 second pause was seen during nocturnal hours and intermittent mobitz type II. Toprol XL 100 mg daily was held for 24 hours and HR improved. No recurrent significant pauses seen. No recurrent AV block. Min HR was 37 bpm, sinus bradycardia at 1109 pm. 2 second pause seen at 0149 am. Patient noted to have LINDA and he does wear c-pap. TSH only mildly elevated. Currently HR in the upper 60's. He ambulated in the hallway with no symptoms. HR increased appropriately. TTE completed and shows preserved EF. Recommend continuing to hold AV flex blockers. Out-pt f/u with electrophysiology for continued monitoring. Cardiology will sign off. Call with questions. (2) CAD (coronary artery disease) Current Visit: No Status: Acute H/o [place] and PCI to the ramus. 07/2016. LHC from 07/2016 reviewed-20% stenosis in the Proximal LAD. 20% stenosis in the Mid LAD. 40% stenosis in the Mid Circumflex. 80% stenosis in the Ramus. S/p PTCA/Igor to mid ramus. 50% stenosis in the Distal RCA remaining. TTE showed preserved EF. LA was mod-severely dilated. No significant valvular disease. Continue asa,plavix, statin. Hold bb for bradycardia. Qualifiers: Coronary Disease-Associated Artery/Lesion type: [place] artery [place] vs. transplanted heart: [place] heart Associated angina: without angina Qualified Code(s): I25.10 - Atherosclerotic heart disease of [place] coronary artery without angina pectoris (3) Afib Current Visit: Yes Status: Acute Noted to have brief episode of afib during hospital stay for [place] 07/2016. No recurrent known per patient or documentation. AC was deffered at that time due to DAPT and occurrence less than 48 hours. Holter did not show reoccurrence of afib. No afib seen on telemetry. Continue to monitor. Qualifiers: Atrial fibrillation type: unspecified Qualified Code(s): I48.91 - Unspecified atrial fibrillation Discussion w patient/family: The assessment and plan as outlined above was discussed with the patient and/or family members who expressed understanding and agreement. All questions were answered. Thank you for involving us in the care of your patient. Please call with any questions. Subjective Principal diagnosis: bradycardia Interval history: Mr. Ward denies recurrent dizziness. He ambulated in the hallway and HR increased to the 60-70's. No symptoms noted. Objective Vital Signs, Last 4 Hours Temp Pulse Resp BP Pulse Ox 08/14/17 10:53 97.6 F 63 18 169/69 96 08/14/17 09:43 95 General: Conversant, No Apparent Distress HEENT: Atraumatic, Normocephaly, Mucus Membranes Moist Neck: No JVD, Normal carotid pulses Cardiac: Reg Rate and Rhythm, Normal S1 and S2, No Murmur Lungs: Normal Breath Sounds, No Wheeze, Rales, Rhonchi Neuro: Alert and responsive, No focal deficits noted Abdomen: Soft, Non-Tender Skin: No rashes noted on visualized skin Musculoskeletal: No Chest Wall Tenderness Extremities: No Clubbing, No Cyanosis, No Edema, Normal Pulses Results 08/14/17 06:01 08/14/17 04:17 Lab Results 08/13/17 08/14/17 08/14/17 05:15 04:17 06:01 WBC 7.2 Hgb 12.2 L Hct 36.3 L Plt Count 142 Sodium 141 137 Potassium 4.8 5.4 H Chloride 109 H 111 H Carbon Dioxide 25 20 L BUN 65 H 60 H Creatinine 2.32 H 1.94 H Glucose 112 H 141 H Calcium 9.0 8.3 L - Imaging and Cardiology Echo: report reviewed - EKG Interpretation EKG results cardiology: personally reviewed - VTE Documentation of Mechanical Device: Intermittent pneumatic compression device Consult Discharge Plan - Plan [facility]errals: [facility] [Primary Care Provider] -
--- NOTE | 2017-08-14 13:21 | Discharge Summary ---
Orders not resulted at time of discharge: Pending orders 08/15/17 04:00 Basic Metabolic Panel AM 0400 CBC [Complete Blood Count] [HEME] AM 0400 08/16/17 04:00 Basic Metabolic Panel AM 0400 CBC [Complete Blood Count] [HEME] AM 04008/17/17 04:00 Basic Metabolic Panel AM 0400 CBC [Complete Blood Count] [HEME] AM 0400 08/18/17 04:00 Basic Metabolic Panel AM 0400 CBC [Complete Blood Count] [HEME] AM 0400 08/19/17 04:00 Basic Metabolic Panel AM 0400 CBC [Complete Blood Count] [HEME] AM 0400 Date of Encounter: 08/14/17 Time of Encounter: 13:00 - Discharge Diagnosis (1) Bradycardia Priority: Primary Status: Acute Assessment and Plan: 71 year old male with past medical history of COPD, CAD, dementia, diabetes, hypertension, CKD, and CHF who presented to the ED after receiving a call about his event monitor after turning it in that he had dropped down to the teens a couple of times and needed to go to the hospital. Patient has been complaining of dizziness for 1 month. He has felt a flushing feeling and light headed. He denies syncope or palpitations. Upon arrival to the ED, patient's heart rate was 54 with a blood pressure of 160/88. He was assessed with symptomatic bradycardia. EKG showed first degree AV block and seen by cardiology. He had a TTE done which came back with no significnt valvular disease. Cardiology recommended discontinuing his metoprolol. He was asymptomatic off the metoprolol and pacemaker will not be placed at this time per cardiology recommendations. He will follow up as an outpatient with electrophysiology (2) CAD (coronary artery disease) Priority: Secondary Status: Acute Qualifiers: Coronary Disease-Associated Artery/Lesion type: [place] artery [place] vs. transplanted heart: [place] heart Associated angina: without angina Qualified Code(s): I25.10 - Atherosclerotic heart disease of [place] coronary artery without angina pectoris (3) CKD (chronic kidney disease), stage III Priority: Secondary Status: Chronic (4) Diabetes Priority: Secondary Status: Chronic Qualifiers: Diabetes mellitus type: type 2 Diabetes mellitus terminologist insulin use: with longterm use Diabetes mellitus complication status: with kidney complications Diabetes mellitus complication detail: with chronic kidney disease Chronic kidney disease stage: stage 3 (moderate) Qualified Code(s): E11.22 - Type 2 diabetes mellitus with diabetic chronic kidney disease; N18.3 - Chronic kidney disease, stage 3 (moderate); 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 Elliott is a 71 year old male - Time Spent with Patient Total time spent providing and/or coordinating discharge services: - Discharge Medications Home Medications: Albuterol Sulfate [Albuterol Inhaler] 2 puff IH QID PRN 07/25/16 [History] Atorvastatin [Lipitor] 40 mg PO HS 07/25/16 [History] Cetirizine HCl [Zyrtec] 10 mg PO DAILY 07/25/16 [History] Chlorhexidine Gluconate [Peridex] 15 ml MM BID 07/25/16 [History] Dextrose [Glucose] 16 gm PO AD PRN 07/25/16 [History] Febuxostat [Uloric] 80 mg PO DAILY 07/25/16 [History] Finasteride [Proscar] 5 mg PO DAILY 07/25/16 [History] Folic Acid 1 mg PO DAILY 07/25/16 [History] Insulin ASPART [NovoLOG] 16 unit SQ QAM MDD Breakfast 07/25/16 [History] Insulin ASPART [NovoLOG] 18 unit SQ DAILY MDD NOON 07/25/16 [History] Insulin Glargine [Lantus] 38 unit SQ BID 07/25/16 [History] Latanoprost [Xalatan] 1 drop BOTH EYES HS 07/25/16 [History] Magnesium Oxide [Mag-Ox] 400 mg PO HS 07/25/16 [History] Mineral Oil/Petrolatum,White [Eucerin Creme] 1 appl TP DAILY 07/25/16 [History] Nitroglycerin [Nitrostat] 0.4 mg SL Q5M PRN 07/25/16 [History] Omeprazole [PriLOSEC] 20 mg PO BIDAC 07/25/16 [History] Tamsulosin [Flomax] 0.4 mg PO DAILY 07/25/16 [History] Aspirin Enteric Coated [Aspirin EC] 81 mg PO DAILY #30 tablet. 07/29/16 [Rx] Clopidogrel [Plavix] 75 mg PO DAILY #30 tablet 07/29/16 [Rx] Furosemide [Lasix] 40 mg PO QPM #0 07/29/16 [Rx] Furosemide [Lasix] 80 mg PO QAM #0 07/29/16 [Rx] amLODIPine [Norvasc] 10 mg PO DAILY #60 tablet 07/29/16 [Rx] Losartan [Cozaar] 50 mg PO DAILY 10/02/16 [History] Vit A/Vit C/Vit E/Zinc/Copper [Icaps Areds Formula Dr Tablet] 2 each PO DAILY [History] Insulin ASPART [NovoLOG] 20 unit SQ DAILY MDD DINNER 08/13/17 [History] Allergies/Adverse Reactions: 3 Allergy/AdvReac Type Severity Reaction Status Date / Time pioglitazone [From Actos] Allergy Swelling Verified 08/13/17 09:20 of Lip/Tongue/Throat vancomycin Allergy Swelling Verified 08/13/17 09:20 of Lip/Tongue/Throat Date of admission: 08/13/17 04:58 Primary care physician: [facility] - Constitutional Vitals: Temp Pulse Resp BP Pulse Ox 97.6 F 63 18 169/69 96 08/14/17 10:53 08/14/17 10:53 08/14/17 10:53 08/14/17 10:53 08/14/17 10:53 - Head Head exam: Present: atraumatic, normocephalic - Eye Eye exam: Present: PERRL, conjuntiva pink, sclera anicteric Pupils: Present: PERRL - Neck Neck exam general surgery: Present: supple, trachea midline. Absent: lymphadenopathy - Respiratory Respiratory exam: Present: CTAB. Absent: accessory muscle use, rales, rhonchi, wheezes - Cardiovascular Cardiovascular exam: Present: RRR, +S1, +S2. Absent: diastolic murmur, gallop, rubs, systolic murmur - GI/Abdominal GI/Abdominal exam: Present: normal bowel sounds, soft, no peritoneal signs. Absent: distended, tenderness - Extremities Exam Extremities exam: Present: warm, radial pulses palpable and symmetrical. Absent : calf tenderness, cyanotic, pedal edema - Neurological Exam Neurological exam: Present: CN II-XII intact, oriented X3, no focal deficits. Absent: pronater drift, facial droop, speech deficit - Skin Skin exam: Present: dry, intact - Patient Status Disposition: Home, Self-Care Condition: Good - Discharge Instructions Instructions: Myocardial Infarction (DC), Heart Failure (DC), Atrial Fibrillation (DC), Hypothyroidism (DC), Diabetes Mellitus Type 2 in Adults (DC) , Chronic Hypertension (DC), Bradycardia (DC), Bradycardia (GEN) Follow Up With: REJI,PCP [Primary Care Provider] - 08/19/17 1:30 pm - VTE Documentation of Mechanical Device: Intermittent pneumatic compression device
== END 2017-08-14 15:40 | disposition home or self-care (01) | DRG 309 ==
LOC: EMEROO 21:46 → 2NENU 21:46
PROVIDERS: ADMIT Internal Medicine; ATTEND Internal Medicine

== ENCOUNTER 2019-03-30 15:52 | Observation (INO) ==
[2019-03-30] MEDS ORDERED: 0.9 % Sodium Chloride 1,000 ML IVC ONE (15:54)
[2019-03-30 16:17] LABS: Basophils % 0.4 %; Eosinophils # 0.1 K/mcL (0.0-0.6); Eosinophils % 1.2 %; Hematocrit 20.6 % (37.5-50.1); Hemoglobin 6.5 g/dL (12.9-16.9); Immature Granulocytes % 1.7 % (0-4); Lymphocytes # 1.2 K/mcL (0.6-4.6); Lymphocytes % 13.2 %; Mean Corpuscular HGB Conc 31.6 g/dL (31.6-35.5); Mean Corpuscular Hemoglobin 26.2 pg (28.0-33.3); Mean Corpuscular Volume 83.1 fL (83.0-100.0); Monocytes # 0.6 K/mcL (0.0-1.3); Monocytes % 6.4 %; Neutrophils # 7.2 K/mcL (1.6-8.9); Platelet Count 215 K/mcL (140-400); Red Blood Count 2.48 M/mcL (4.19-5.50); Red Cell Distribution Width 17.4 % (11.5-14.5); Segmented Neutrophils % 77.1 %; White Blood Count 9.3 K/mcL (4.3-11.1)
[2019-03-30 16:36] LABS: Calcium 8.4 mg/dL (8.6-10.3); Potassium 4.5 mEq/L (3.5-5.1)
[2019-03-30 16:37] LABS: INR 1.2; Prothrombin Time 13.1 Seconds (9.4-12.1)
[2019-03-30 16:40] LABS: Activated Partial Thrombo Time 35.8 Seconds (26.0-36.0)
[2019-03-30] MEDS ORDERED: Naloxone 0.4 MG/ML INJ IVP PRN (17:46)
[2019-03-30 18:52] LABS: Bilirubin,Urine Negative (Negative); Blood,Urine Negative (Negative); Clarity,Urine Clear (Clear); Color,Urine Yellow (Yellow); Glucose,Urine (UA) Normal (Normal); Ketones,Urine Negative (Negative); Leukocyte Esterase,Urine Negative (Negative); Nitrite,Urine Negative (Negative); Protein,Urine Trace mg/dL (Neg-Trace); Specific Gravity,Urine 1.012 (1.010-1.025); Urobilinogen,Urine Normal (Normal)
[2019-03-30] MEDS ORDERED: 0.9 % Sodium Chloride 500 ML ONE (20:22)
[2019-03-30] MEDS: Insulin DETEMIR 100 UNIT/ML X5UNITS SQ SCH (20:33)
[2019-03-30] MEDS: Budesonide/Formoterol 160/4.5 1 PUFF INH IH SCH (22:22)
[2019-03-31 06:20] LABS: Basophils # 0.1 K/mcL (0.0-0.2); Basophils % 0.6 %; Eosinophils # 0.3 K/mcL (0.0-0.6); Eosinophils % 3.7 %; Hematocrit 23.9 % (37.5-50.1); Hemoglobin 7.5 g/dL (12.9-16.9); Immature Granulocytes % 1.1 % (0-4); Lymphocytes # 1.9 K/mcL (0.6-4.6); Lymphocytes % 21.5 %; Mean Corpuscular HGB Conc 31.4 g/dL (31.6-35.5); Mean Corpuscular Hemoglobin 27.1 pg (28.0-33.3); Mean Corpuscular Volume 86.3 fL (83.0-100.0); Mean Platelet Volume 10.1 fL (9.4-12.4); Monocytes % 10.7 %; Neutrophils # 5.5 K/mcL (1.6-8.9); Platelet Count 191 K/mcL (140-400); Red Blood Count 2.77 M/mcL (4.19-5.50); Red Cell Distribution Width 16.6 % (11.5-14.5); Segmented Neutrophils % 62.4 %; White Blood Count 8.9 K/mcL (4.3-11.1)
[2019-03-31] MEDS: Budesonide/Formoterol 160/4.5 1 PUFF INH IH SCH ×2 (07:50→20:06)
[2019-03-31] MEDS: carvediloL 6.25 MG TABLET PO SCH ×2 (07:59→16:38)
[2019-03-31] MEDS: Finasteride 5 MG TABLET PO SCH (07:59)
[2019-03-31] MEDS: Insulin DETEMIR 100 UNIT/ML X5UNITS SQ SCH (07:59)
[2019-03-31 09:49] LABS: Uric Acid 12.1 mg/dL (2.3-7.6)
[2019-03-31] MEDS: amLODIPine 5 MG TABLET PO SCH (14:09)
[2019-03-31] MEDS ORDERED: SODIUM CHLORIDE/NAHCO3/KCL/PEG 4,000 ML SOLN.RECON PO ONE (17:00)
[2019-03-31 17:01] LABS: Hematocrit 24.6 % (37.5-50.1)
[2019-04-01] MEDS ORDERED: *HR* Dextrose 50 % in Water (Syg) 50 ML SYRINGE IVP PRN (03:16)
[2019-04-01] MEDS ORDERED: Dextrose Gel 15 GM/37.5 ML TUBE PO PRN ×2 (03:16)
[2019-04-01] MEDS ORDERED: D5% in Water 1,000 ML IVC PRN (03:16)
[2019-04-01] MEDS ORDERED: Insulin LISPRO 300 UNITS/3 ML VIAL SQ SCH ×2 (06:00→21:00)
[2019-04-01] MEDS: Budesonide/Formoterol 160/4.5 1 PUFF INH IH SCH ×2 (07:18→22:11)
[2019-04-01] MEDS: Finasteride 5 MG TABLET PO SCH (08:04)
[2019-04-01] MEDS: carvediloL 6.25 MG TABLET PO SCH ×2 (08:04→16:23)
[2019-04-01] MEDS: amLODIPine 5 MG TABLET PO SCH (08:04)
[2019-04-01 08:23] LABS: Calcium 8.2 mg/dL (8.6-10.3); Potassium 4.7 mEq/L (3.5-5.1)
[2019-04-01] MEDS ORDERED: Propofol 500 MG/50 ML INFUS..BTL ONE (09:32)
[2019-04-01] MEDS ORDERED: Lidocaine -MPF 2% 2 ML VIAL ONE (09:37)
[2019-04-01] MEDS: Insulin LISPRO 300 UNITS/3 ML VIAL SQ SCH (16:23)
[2019-04-01 18:36] LABS: Hematocrit 25.8 % (37.5-50.1); Hemoglobin 8.3 g/dL (12.9-16.9)
[2019-04-01] MEDS ORDERED: Insulin DETEMIR 100 UNIT/ML X5UNITS SQ SCH (21:00)
[2019-04-01 22:02] LABS: Hematocrit 25.7 % (37.5-50.1); Hemoglobin 8.1 g/dL (12.9-16.9)
[2019-04-02 07:10] VITALS: BP 171/74
[2019-04-02] MEDS: Budesonide/Formoterol 160/4.5 1 PUFF INH IH SCH (08:11)
[2019-04-02 09:37] LABS: Hematocrit 27.2 % (37.5-50.1); Hemoglobin 8.4 g/dL (12.9-16.9)
[2019-04-02] MEDS: carvediloL 6.25 MG TABLET PO SCH (09:48)
[2019-04-02] MEDS: Finasteride 5 MG TABLET PO SCH (09:48)
[2019-04-02] MEDS: Insulin LISPRO 300 UNITS/3 ML VIAL SQ SCH ×2 (09:48→12:51)
[2019-04-02] MEDS: amLODIPine 5 MG TABLET PO SCH (09:49)
[2019-04-02 09:52] LABS: Calcium 8.4 mg/dL (8.6-10.3); Potassium 4.3 mEq/L (3.5-5.1)
== END 2019-04-02 14:21 | disposition home or self-care (01) ==
LOC: EMEROOARM 15:52 → 3ANU 15:52 → SUATTDRO 20:38 → 3ANU 21:15
PROVIDERS: ADMIT Internal Medicine; ATTEND Internal Medicine
PROC: ENDOEBX (2019-04-01 18:55)

== ENCOUNTER 2019-04-14 12:03 | Observation (INO) ==
[2019-04-14] MEDS ORDERED: Aspirin 81 MG TAB.CHEW PO ONE (12:15)
[2019-04-14 12:36] LABS: Basophils # 0.1 K/mcL (0.0-0.2); Basophils % 0.6 %; Eosinophils # 0.3 K/mcL (0.0-0.6); Eosinophils % 4.1 %; Hematocrit 26.5 % (37.5-50.1); Hemoglobin 8.2 g/dL (12.9-16.9); Immature Granulocytes % 0.6 % (0-4); Lymphocytes # 1.5 K/mcL (0.6-4.6); Lymphocytes % 18.1 %; Mean Corpuscular HGB Conc 30.9 g/dL (31.6-35.5); Mean Corpuscular Hemoglobin 26.2 pg (28.0-33.3); Mean Corpuscular Volume 84.7 fL (83.0-100.0); Mean Platelet Volume 10.3 fL (9.4-12.4); Monocytes # 0.7 K/mcL (0.0-1.3); Monocytes % 8.8 %; Neutrophils # 5.6 K/mcL (1.6-8.9); Platelet Count 246 K/mcL (140-400); Red Blood Count 3.13 M/mcL (4.19-5.50); Red Cell Distribution Width 15.8 % (11.5-14.5); Segmented Neutrophils % 67.8 %; White Blood Count 8.3 K/mcL (4.3-11.1)
[2019-04-14 12:56] LABS: Calcium 9.2 mg/dL (8.6-10.3); Potassium 4.5 mEq/L (3.5-5.1)
[2019-04-14 12:57] LABS: Troponin I 0.03 ng/mL (< 0.04)
[2019-04-14] MEDS ORDERED: Naloxone 0.4 MG/ML INJ IVP PRN (13:59)
[2019-04-14] MEDS ORDERED: Nitroglycerin 0.4 MG TAB.SUBL SL PRN (14:01)
[2019-04-14] MEDS ORDERED: Artificial Tears SOLN 15 ML BOTTLE BOTH EYES PRN (14:01)
[2019-04-14] MEDS ORDERED: Dextrose Gel 15 GM/37.5 ML TUBE PO PRN ×2 (14:03)
[2019-04-14] MEDS ORDERED: *HR* Dextrose 50 % in Water (Syg) 50 ML SYRINGE IVP PRN (14:03)
[2019-04-14] MEDS ORDERED: D5% in Water 1,000 ML IVC PRN (14:03)
[2019-04-14 14:21] LABS: Chol/HDL Ratio 4.5 (0-4.9)
[2019-04-14] MEDS ORDERED: amLODIPine 5 MG TABLET PO SCH ×2 (14:45→21:00)
[2019-04-14] MEDS: Insulin LISPRO 300 UNITS/3 ML VIAL SQ SCH ×3 (16:11→21:38)
[2019-04-14] MEDS: carvediloL 6.25 MG TABLET PO SCH (17:22)
[2019-04-14] MEDS: Budesonide/Formoterol 160/4.5 1 PUFF INH IH SCH (19:54)
[2019-04-14] MEDS: Insulin DETEMIR 100 UNIT/ML X5UNITS SQ SCH (21:37)
[2019-04-14] MEDS: Latanoprost 2.5 ML BOTTLE BOTH EYES SCH (21:44)
[2019-04-15 01:43] LABS: Calcium 8.6 mg/dL (8.6-10.3); Magnesium 2.1 mg/dL (1.6-2.6); Phosphorous 4.6 mg/dL (2.7-4.5); Potassium 4.4 mEq/L (3.5-5.1)
[2019-04-15] MEDS ORDERED: Regadenoson 0.4 MG/5 ML SYRINGE IVP ONE (06:28)
[2019-04-15] MEDS: Insulin LISPRO 300 UNITS/3 ML VIAL SQ SCH ×7 (08:49→21:02)
[2019-04-15] MEDS: Budesonide/Formoterol 160/4.5 1 PUFF INH IH SCH ×2 (09:42→20:31)
[2019-04-15] MEDS: Folic Acid 1 MG TABLET PO SCH (10:11)
[2019-04-15] MEDS: carvediloL 6.25 MG TABLET PO SCH ×2 (10:11→17:56)
[2019-04-15] MEDS: Aspirin Enteric Coated 81 MG Tablet PO SCH (10:11)
[2019-04-15] MEDS: Finasteride 5 MG TABLET PO SCH (10:11)
[2019-04-15] MEDS: Loratadine 10 MG TABLET PO SCH (10:12)
[2019-04-15] MEDS: Insulin DETEMIR 100 UNIT/ML X5UNITS SQ SCH ×2 (10:42→21:01)
[2019-04-15] MEDS: amLODIPine 5 MG TABLET PO SCH (14:59)
[2019-04-15] MEDS ORDERED: *HR* Rivaroxaban 15 MG TABLET PO SCH (17:00)
[2019-04-15] MEDS: Furosemide 40 MG TABLET PO SCH (17:56)
[2019-04-15] MEDS ORDERED: amLODIPine 5 MG TABLET PO SCH (21:00)
[2019-04-15] MEDS: Latanoprost 2.5 ML BOTTLE BOTH EYES SCH (22:29)
[2019-04-16] MEDS: Budesonide/Formoterol 160/4.5 1 PUFF INH IH SCH (07:39)
[2019-04-16] MEDS ORDERED: carvediloL 6.25 MG TABLET PO SCH (08:00)
[2019-04-16] MEDS: Insulin LISPRO 300 UNITS/3 ML VIAL SQ SCH ×4 (08:17→11:27)
[2019-04-16] MEDS: Aspirin Enteric Coated 81 MG Tablet PO SCH (08:22)
[2019-04-16] MEDS: Finasteride 5 MG TABLET PO SCH (08:22)
[2019-04-16] MEDS: Furosemide 40 MG TABLET PO SCH (08:22)
[2019-04-16] MEDS: Loratadine 10 MG TABLET PO SCH (08:22)
[2019-04-16] MEDS: Folic Acid 1 MG TABLET PO SCH (08:23)
[2019-04-16] MEDS: amLODIPine 5 MG TABLET PO SCH (08:23)
[2019-04-16] MEDS: Insulin DETEMIR 100 UNIT/ML X5UNITS SQ SCH (08:24)
[2019-04-16] MEDS ORDERED: Famotidine 20 MG TABLET PO SCH (09:00)
[2019-04-16 15:20] VITALS: BP 151/69
== END 2019-04-16 12:50 | disposition home or self-care (01) ==
LOC: EMEROOARM 12:03 → 3BNU 12:03 → SUATTDRO 14:19 → 3BNU 14:42
PROVIDERS: ADMIT Internal Medicine; ATTEND Internal Medicine

== ENCOUNTER 2019-11-02 16:06 | Inpatient (IN) ==
[2019-11-02] MEDS ORDERED: Naloxone 0.4 MG/ML INJ IVP PRN (17:39)
[2019-11-02] MEDS ORDERED: Ondansetron 4 MG/2 ML VIAL IVP PRN (17:39)
[2019-11-02 18:19] LABS: Basophils # 0.1 K/mcL (0.0-0.2); Basophils % 0.6 %; Eosinophils # 0.3 K/mcL (0.0-0.6); Eosinophils % 2.4 %; Hematocrit 34.6 % (37.5-50.1); Hemoglobin 11.1 g/dL (12.9-16.9); Immature Granulocytes % 1.3 % (0-4); Lymphocytes # 1.2 K/mcL (0.6-4.6); Lymphocytes % 9.8 %; Mean Corpuscular HGB Conc 32.1 g/dL (31.6-35.5); Mean Corpuscular Hemoglobin 30.3 pg (28.0-33.3); Mean Corpuscular Volume 94.5 fL (83.0-100.0); Mean Platelet Volume 9.4 fL (9.4-12.4); Monocytes # 1.1 K/mcL (0.0-1.3); Monocytes % 9.2 %; Neutrophils # 9.4 K/mcL (1.6-8.9); Platelet Count 284 K/mcL (140-400); Red Blood Count 3.66 M/mcL (4.19-5.50); Red Cell Distribution Width 14.1 % (11.5-14.5); Segmented Neutrophils % 76.7 %; White Blood Count 12.2 K/mcL (4.3-11.1)
[2019-11-02 18:23] LABS: INR 1.5; Prothrombin Time 17.1 Seconds (9.4-12.1)
[2019-11-02 18:35] LABS: Potassium 4.8 mEq/L (3.5-5.1)
[2019-11-02] MEDS ORDERED: Dextrose Gel 15 GM/37.5 ML TUBE PO PRN ×2 (18:35)
[2019-11-02] MEDS ORDERED: *HR* Dextrose 50 % in Water (Vial) 50 ML VIAL IVP PRN (18:35)
[2019-11-02] MEDS ORDERED: D5% in Water 1,000 ML IVC PRN (18:35)
[2019-11-02 18:36] LABS: Albumin 3.5 g/dL (3.5-5.7); Albumin/Globulin Ratio 0.9 (1.1-2.2); Bilirubin,Direct 0.1 mg/dL (0.0-0.2); Bilirubin,Indirect 0.4 mg/dL (0.0-1.0); Bilirubin,Total 0.5 mg/dL (0.3-1.0); Globulin 3.7 g/dL (2.4-3.5); Total Protein 7.2 g/dL (6.4-8.9)
[2019-11-02] MEDS: 0.9 % Sodium Chloride 1,000 ML IVC SCH (19:51)
[2019-11-02] MEDS ORDERED: Vancomycin 1,750 MG in 0.9 % Sodium Chloride 250 ML IVPB SCH (20:00)
[2019-11-02] MEDS ORDERED: *HR* Acetylcysteine 20% 600 MG/3 ML ORAL SYRINGE PO SCH (21:00)
[2019-11-02] MEDS: Insulin LISPRO 300 UNITS/3 ML VIAL SQ SCH (21:55)
[2019-11-02] MEDS: DAPTOmycin 550 MG in 0.9 % Sodium Chloride 100 ML IVPB SCH (22:00)
[2019-11-02] MEDS: *HR* Heparin 5,000 UNIT/ML VIAL SQ SCH (22:01)
[2019-11-03] MEDS: Piperacillin/Tazobactam 3.375 GM in 0.9 % Sodium Chloride Mini Bag 100 ML IVPB SCH ×3 (00:07→17:30)
[2019-11-03 02:47] LABS: Basophils # 0.1 K/mcL (0.0-0.2); Basophils % 0.5 %; Eosinophils # 0.3 K/mcL (0.0-0.6); Eosinophils % 2.7 %; Hemoglobin 9.6 g/dL (12.9-16.9); Immature Granulocytes % 1.4 % (0-4); Lymphocytes # 1.4 K/mcL (0.6-4.6); Lymphocytes % 13.2 %; Mean Corpuscular Hemoglobin 30.2 pg (28.0-33.3); Mean Corpuscular Volume 94.3 fL (83.0-100.0); Mean Platelet Volume 10.1 fL (9.4-12.4); Monocytes % 9.1 %; Neutrophils # 7.6 K/mcL (1.6-8.9); Platelet Count 269 K/mcL (140-400); Red Blood Count 3.18 M/mcL (4.19-5.50); Red Cell Distribution Width 14.1 % (11.5-14.5); Segmented Neutrophils % 73.1 %; White Blood Count 10.4 K/mcL (4.3-11.1)
[2019-11-03 03:04] LABS: Calcium 8.7 mg/dL (8.6-10.3); Chol/HDL Ratio 5.4 (0-4.9); Potassium 4.4 mEq/L (3.5-5.1)
[2019-11-03] MEDS: *HR* Heparin 5,000 UNIT/ML VIAL SQ SCH ×3 (05:58→20:08)
[2019-11-03] MEDS ORDERED: Nitroglycerin 0.4 MG TAB.SUBL SL PRN (07:26)
[2019-11-03] MEDS ORDERED: amLODIPine 5 MG TABLET PO SCH (09:00)
[2019-11-03] MEDS ORDERED: FEBUXOSTAT 40 MG PO SCH (09:00)
[2019-11-03 09:39] LABS: Estimated Average Glucose 180 mg/dl
[2019-11-03] MEDS: 0.9 % Sodium Chloride 1,000 ML IVC SCH ×2 (09:52→21:44)
[2019-11-03] MEDS: amLODIPine 5 MG TABLET PO SCH ×2 (09:55→09:57)
[2019-11-03] MEDS: carvediloL 6.25 MG TABLET PO SCH ×2 (09:56→17:42)
[2019-11-03] MEDS: Aspirin Enteric Coated 81 MG Tablet PO SCH (09:56)
[2019-11-03] MEDS: Loratadine 10 MG TABLET PO SCH (09:56)
[2019-11-03] MEDS: calcitrioL 0.25 MCG CAPSULE PO SCH (09:56)
[2019-11-03] MEDS: Folic Acid 1 MG TABLET PO SCH (09:56)
[2019-11-03] MEDS: Insulin LISPRO 300 UNITS/3 ML VIAL SQ SCH ×4 (10:00→20:08)
[2019-11-03] MEDS: *HR* Acetylcysteine 20% 600 MG/3 ML ORAL SYRINGE PO SCH ×2 (10:54→20:09)
[2019-11-03] MEDS ORDERED: 0.9 % Sodium Chloride 1,000 ML IV ONE (19:41)
[2019-11-03] MEDS: Latanoprost 2.5 ML BOTTLE BOTH EYES SCH (20:13)
[2019-11-04] MEDS: Piperacillin/Tazobactam 3.375 GM in 0.9 % Sodium Chloride Mini Bag 100 ML IVPB SCH ×3 (00:37→18:56)
[2019-11-04] MEDS: *HR* Heparin 5,000 UNIT/ML VIAL SQ SCH ×3 (05:10→20:19)
[2019-11-04 05:58] LABS: Calcium 8.6 mg/dL (8.6-10.3); Magnesium 1.9 mg/dL (1.6-2.6); Potassium 4.6 mEq/L (3.5-5.1)
[2019-11-04 05:59] LABS: Basophils # 0.1 K/mcL (0.0-0.2); Basophils % 0.6 %; Eosinophils # 0.3 K/mcL (0.0-0.6); Eosinophils % 2.7 %; Hematocrit 30.8 % (37.5-50.1); Hemoglobin 9.5 g/dL (12.9-16.9); Immature Granulocytes % 2.7 % (0-4); Lymphocytes # 1.2 K/mcL (0.6-4.6); Lymphocytes % 11.8 %; Mean Corpuscular HGB Conc 30.8 g/dL (31.6-35.5); Mean Corpuscular Hemoglobin 29.5 pg (28.0-33.3); Mean Corpuscular Volume 95.7 fL (83.0-100.0); Mean Platelet Volume 9.9 fL (9.4-12.4); Monocytes % 9.5 %; Neutrophils # 7.3 K/mcL (1.6-8.9); Platelet Count 264 K/mcL (140-400); Red Blood Count 3.22 M/mcL (4.19-5.50); Red Cell Distribution Width 14.1 % (11.5-14.5); Segmented Neutrophils % 72.7 %
[2019-11-04] MEDS: carvediloL 6.25 MG TABLET PO SCH ×2 (08:11→18:58)
[2019-11-04] MEDS: 0.9 % Sodium Chloride 1,000 ML IVC SCH ×2 (08:18→22:30)
[2019-11-04] MEDS: Insulin LISPRO 300 UNITS/3 ML VIAL SQ SCH ×4 (08:38→20:09)
[2019-11-04] MEDS: Aspirin Enteric Coated 81 MG Tablet PO SCH (09:19)
[2019-11-04] MEDS: amLODIPine 5 MG TABLET PO SCH (09:20)
[2019-11-04] MEDS ORDERED: Heparin 1,000 UNITS/500 mL 500 ML ONE (13:46)
[2019-11-04] MEDS ORDERED: *HR* Heparin 10,000 UNIT/10 ML VIAL ONE (13:46)
[2019-11-04] MEDS ORDERED: 0.9 % Sodium Chloride 1,000 ML ONE ×2 (13:47)
[2019-11-04] MEDS ORDERED: *HR* FentaNYL (PF) 100 MCG/2 ML VIAL ONE (14:11)
[2019-11-04] MEDS ORDERED: *HR* Midazolam HCl 2 MG/2 ML VIAL ONE (14:11)
[2019-11-04] MEDS: Loratadine 10 MG TABLET PO SCH (18:34)
[2019-11-04] MEDS: Folic Acid 1 MG TABLET PO SCH (18:35)
[2019-11-04] MEDS: calcitrioL 0.25 MCG CAPSULE PO SCH (18:35)
[2019-11-04] MEDS: Morphine Sulfate 2 MG/ML SYRINGE IVP PRN (19:23)
[2019-11-04] MEDS: DAPTOmycin 550 MG in 0.9 % Sodium Chloride 100 ML IVPB SCH (20:19)
[2019-11-04] MEDS ORDERED: *HR* Acetylcysteine 20% 600 MG/3 ML ORAL SYRINGE PO SCH (21:00)
[2019-11-04] MEDS: Latanoprost 2.5 ML BOTTLE BOTH EYES SCH (21:05)
[2019-11-05] MEDS: Piperacillin/Tazobactam 3.375 GM in 0.9 % Sodium Chloride Mini Bag 100 ML IVPB SCH ×4 (04:30→17:01)
[2019-11-05] MEDS: *HR* Heparin 5,000 UNIT/ML VIAL SQ SCH ×3 (04:39→20:56)
[2019-11-05 04:58] LABS: Basophils # 0.1 K/mcL (0.0-0.2); Basophils % 0.6 %; Eosinophils # 0.3 K/mcL (0.0-0.6); Eosinophils % 2.5 %; Hematocrit 30.2 % (37.5-50.1); Hemoglobin 9.7 g/dL (12.9-16.9); Immature Granulocytes % 2.2 % (0-4); Lymphocytes # 1.1 K/mcL (0.6-4.6); Lymphocytes % 10.3 %; Mean Corpuscular HGB Conc 32.1 g/dL (31.6-35.5); Mean Corpuscular Hemoglobin 30.8 pg (28.0-33.3); Mean Corpuscular Volume 95.9 fL (83.0-100.0); Mean Platelet Volume 9.7 fL (9.4-12.4); Platelet Count 245 K/mcL (140-400); Red Blood Count 3.15 M/mcL (4.19-5.50); Red Cell Distribution Width 14.3 % (11.5-14.5); Segmented Neutrophils % 75.4 %; White Blood Count 10.6 K/mcL (4.3-11.1)
[2019-11-05 05:17] LABS: Calcium 8.5 mg/dL (8.6-10.3); Magnesium 1.9 mg/dL (1.6-2.6); Potassium 4.8 mEq/L (3.5-5.1)
[2019-11-05] MEDS ORDERED: 0.9 % Sodium Chloride 500 ML IVC ONE (09:08)
[2019-11-05] MEDS: amLODIPine 5 MG TABLET PO SCH (09:20)
[2019-11-05] MEDS: carvediloL 6.25 MG TABLET PO SCH ×2 (09:20→17:02)
[2019-11-05] MEDS: calcitrioL 0.25 MCG CAPSULE PO SCH (09:20)
[2019-11-05] MEDS: Aspirin Enteric Coated 81 MG Tablet PO SCH (09:20)
[2019-11-05] MEDS: Loratadine 10 MG TABLET PO SCH (09:20)
[2019-11-05] MEDS: Folic Acid 1 MG TABLET PO SCH (09:20)
[2019-11-05] MEDS: 0.9 % Sodium Chloride 1,000 ML IVC SCH ×2 (09:21→12:05)
[2019-11-05] MEDS: Insulin LISPRO 300 UNITS/3 ML VIAL SQ SCH ×4 (09:22→20:56)
[2019-11-05] MEDS: Morphine Sulfate 2 MG/ML SYRINGE IVP PRN ×2 (09:29→18:30)
[2019-11-05] MEDS ORDERED: Sodium Bicarbonate 150 MEQ in D5% in Water 1,000 ML IVC SCH (12:45)
[2019-11-05] MEDS: Acetaminophen 325 MG TABLET PO PRN (14:41)
[2019-11-05] MEDS: Ipratropium/Albuterol Neb 3 ML IH PRN (18:34)
[2019-11-05] MEDS: Latanoprost 2.5 ML BOTTLE BOTH EYES SCH (20:56)
[2019-11-06] MEDS: Morphine Sulfate 2 MG/ML SYRINGE IVP PRN ×3 (00:34→21:15)
[2019-11-06] MEDS: Piperacillin/Tazobactam 3.375 GM in 0.9 % Sodium Chloride Mini Bag 100 ML IVPB SCH ×3 (00:34→21:15)
[2019-11-06 01:49] LABS: Basophils # 0.1 K/mcL (0.0-0.2); Basophils % 0.6 %; Eosinophils # 0.4 K/mcL (0.0-0.6); Eosinophils % 3.4 %; Hemoglobin 9.3 g/dL (12.9-16.9); Immature Granulocytes % 2.8 % (0-4); Lymphocytes # 1.2 K/mcL (0.6-4.6); Lymphocytes % 10.2 %; Mean Corpuscular HGB Conc 32.1 g/dL (31.6-35.5); Mean Corpuscular Hemoglobin 30.4 pg (28.0-33.3); Mean Corpuscular Volume 94.8 fL (83.0-100.0); Mean Platelet Volume 9.8 fL (9.4-12.4); Monocytes % 8.2 %; Neutrophils # 9.1 K/mcL (1.6-8.9); Platelet Count 225 K/mcL (140-400); Red Blood Count 3.06 M/mcL (4.19-5.50); Red Cell Distribution Width 14.1 % (11.5-14.5); Segmented Neutrophils % 74.8 %; White Blood Count 12.1 K/mcL (4.3-11.1)
[2019-11-06 02:09] LABS: Calcium 8.2 mg/dL (8.6-10.3); Magnesium 1.8 mg/dL (1.6-2.6); Potassium 4.5 mEq/L (3.5-5.1)
[2019-11-06] MEDS: *HR* Heparin 5,000 UNIT/ML VIAL SQ SCH ×3 (04:59→21:15)
[2019-11-06] MEDS: Loratadine 10 MG TABLET PO SCH (07:43)
[2019-11-06] MEDS: carvediloL 6.25 MG TABLET PO SCH ×2 (07:43→18:27)
[2019-11-06] MEDS: Folic Acid 1 MG TABLET PO SCH (07:43)
[2019-11-06] MEDS: Aspirin Enteric Coated 81 MG Tablet PO SCH (07:44)
[2019-11-06] MEDS: amLODIPine 5 MG TABLET PO SCH (07:44)
[2019-11-06] MEDS: Acetaminophen 325 MG TABLET PO PRN (07:44)
[2019-11-06] MEDS: calcitrioL 0.25 MCG CAPSULE PO SCH (07:44)
[2019-11-06] MEDS: Insulin LISPRO 300 UNITS/3 ML VIAL SQ SCH ×4 (07:45→20:21)
[2019-11-06] MEDS ORDERED: Sennosides/Docusate Sodium TABLET PO ONE (08:22)
[2019-11-06] MEDS ORDERED: Budesonide/Formoterol 160/4.5 1 PUFF INH IH PRN (08:26)
[2019-11-06] MEDS: polyethylene glycoL 3350 17 GM POWD.PACK PO SCH (10:28)
[2019-11-06] MEDS: Insulin DETEMIR 100 UNIT/ML X5UNITS SQ SCH (10:28)
[2019-11-06] MEDS: Sodium Bicarbonate 150 MEQ in D5% in Water 1,000 ML IVC SCH (10:28)
[2019-11-06] MEDS: Ipratropium/Albuterol Neb 3 ML IH PRN (10:59)
[2019-11-06] MEDS: DAPTOmycin 550 MG in 0.9 % Sodium Chloride 100 ML IVPB SCH (20:20)
[2019-11-06] MEDS: Latanoprost 2.5 ML BOTTLE BOTH EYES SCH (20:21)
[2019-11-07] MEDS: *HR* Heparin 5,000 UNIT/ML VIAL SQ SCH ×3 (05:11→21:06)
[2019-11-07 05:13] LABS: Basophils # 0.1 K/mcL (0.0-0.2); Basophils % 0.5 %; Eosinophils # 0.4 K/mcL (0.0-0.6); Eosinophils % 3.2 %; Hematocrit 26.9 % (37.5-50.1); Hemoglobin 8.7 g/dL (12.9-16.9); Immature Granulocytes % 2.4 % (0-4); Lymphocytes # 1.6 K/mcL (0.6-4.6); Lymphocytes % 12.2 %; Mean Corpuscular HGB Conc 32.3 g/dL (31.6-35.5); Mean Corpuscular Hemoglobin 30.1 pg (28.0-33.3); Mean Corpuscular Volume 93.1 fL (83.0-100.0); Mean Platelet Volume 10.2 fL (9.4-12.4); Monocytes # 1.1 K/mcL (0.0-1.3); Monocytes % 8.3 %; Neutrophils # 9.4 K/mcL (1.6-8.9); Platelet Count 237 K/mcL (140-400); Red Blood Count 2.89 M/mcL (4.19-5.50); Segmented Neutrophils % 73.4 %; White Blood Count 12.8 K/mcL (4.3-11.1)
[2019-11-07 05:23] LABS: Potassium 4.8 mEq/L (3.5-5.1)
[2019-11-07] MEDS: Insulin LISPRO 300 UNITS/3 ML VIAL SQ SCH ×4 (07:42→21:06)
[2019-11-07] MEDS: carvediloL 6.25 MG TABLET PO SCH ×3 (07:43→17:42)
[2019-11-07] MEDS: Folic Acid 1 MG TABLET PO SCH (07:43)
[2019-11-07] MEDS: Loratadine 10 MG TABLET PO SCH (07:43)
[2019-11-07] MEDS: Aspirin Enteric Coated 81 MG Tablet PO SCH (07:43)
[2019-11-07] MEDS: calcitrioL 0.25 MCG CAPSULE PO SCH (07:43)
[2019-11-07] MEDS: amLODIPine 5 MG TABLET PO SCH (07:43)
[2019-11-07] MEDS: Insulin DETEMIR 100 UNIT/ML X5UNITS SQ SCH (07:43)
[2019-11-07] MEDS: Piperacillin/Tazobactam 3.375 GM in 0.9 % Sodium Chloride Mini Bag 100 ML IVPB SCH ×2 (07:44→21:07)
[2019-11-07] MEDS: polyethylene glycoL 3350 17 GM POWD.PACK PO SCH (07:44)
[2019-11-07] MEDS: Acetaminophen 325 MG TABLET PO PRN (07:56)
[2019-11-07] MEDS: Morphine Sulfate 2 MG/ML SYRINGE IVP PRN ×2 (12:01→18:48)
[2019-11-07] MEDS: Sodium Bicarbonate 150 MEQ in D5% in Water 1,000 ML IVC SCH ×2 (14:03→17:52)
[2019-11-07] MEDS: Latanoprost 2.5 ML BOTTLE BOTH EYES SCH (21:06)
[2019-11-08] MEDS: Sodium Bicarbonate 150 MEQ in D5% in Water 1,000 ML IVC SCH (03:00)
[2019-11-08 05:16] LABS: Basophils # 0.1 K/mcL (0.0-0.2); Basophils % 0.6 %; Eosinophils # 0.4 K/mcL (0.0-0.6); Hematocrit 26.1 % (37.5-50.1); Hemoglobin 8.7 g/dL (12.9-16.9); Immature Granulocytes % 2.4 % (0-4); Lymphocytes # 1.2 K/mcL (0.6-4.6); Lymphocytes % 11.4 %; Mean Corpuscular HGB Conc 33.3 g/dL (31.6-35.5); Mean Corpuscular Hemoglobin 31.1 pg (28.0-33.3); Mean Corpuscular Volume 93.2 fL (83.0-100.0); Mean Platelet Volume 9.6 fL (9.4-12.4); Monocytes # 0.9 K/mcL (0.0-1.3); Monocytes % 8.4 %; Platelet Count 252 K/mcL (140-400); Red Cell Distribution Width 13.9 % (11.5-14.5); Segmented Neutrophils % 73.2 %; White Blood Count 10.9 K/mcL (4.3-11.1)
[2019-11-08] MEDS: *HR* Heparin 5,000 UNIT/ML VIAL SQ SCH ×3 (05:18→20:11)
[2019-11-08 05:34] LABS: Calcium 8.1 mg/dL (8.6-10.3); Potassium 4.5 mEq/L (3.5-5.1)
[2019-11-08] MEDS: carvediloL 6.25 MG TABLET PO SCH ×2 (06:49→17:38)
[2019-11-08] MEDS ORDERED: Ondansetron 4 MG/2 ML VIAL ONE (06:53)
[2019-11-08] MEDS ORDERED: Dexamethasone 4 MG/ML VIAL ONE (06:53)
[2019-11-08] MEDS ORDERED: Lidocaine -MPF 2% 2 ML VIAL ONE (06:53)
[2019-11-08] MEDS ORDERED: *HR* Propofol 200 MG/20 ML VIAL IVP ONE ×2 (06:53→08:44)
[2019-11-08] MEDS ORDERED: *HR* FentaNYL (PF) 100 MCG/2 ML VIAL ONE (06:53)
[2019-11-08] MEDS ORDERED: *HR* Midazolam HCl 2 MG/2 ML VIAL ONE (06:53)
[2019-11-08] MEDS ORDERED: *HR* Rocuronium Bromide 50 MG/5 ML VIAL ONE (06:57)
[2019-11-08] MEDS ORDERED: Ropivacaine/PF 0.5% 30 ML VIAL ONE (07:05)
[2019-11-08] MEDS ORDERED: Albumin Human 5% 25.0 GM/500 ML IV.SOLN ONE (07:11)
[2019-11-08] MEDS ORDERED: Ondansetron 4 MG/2 ML VIAL IVP ONE (07:22)
[2019-11-08] MEDS ORDERED: *HR* HYDROmorphone PF 0.5 MG/0.5 ML SYRINGE IVP PRN (07:22)
[2019-11-08] MEDS ORDERED: *HR* Labetalol 20 MG/4 ML SYRINGE IVP PRN (07:22)
[2019-11-08] MEDS ORDERED: *HR* OxyCODONE Immed Rel 5 MG TABLET PO PRN (07:22)
[2019-11-08] MEDS ORDERED: *HR* Promethazine 25 MG/ML VIAL IVP PRN (07:22)
[2019-11-08] MEDS ORDERED: Albuterol 2.5 MG/3 ML NEBULIZER ONE (07:25)
[2019-11-08] MEDS ORDERED: NIFEdipine XL (24 HR) 30 MG TAB.ER.24 PO SCH (09:00)
[2019-11-08] MEDS ORDERED: Insulin DETEMIR 100 UNIT/ML X5UNITS SQ SCH (09:00)
[2019-11-08] MEDS: Ipratropium/Albuterol Neb 3 ML IH PRN (10:48)
[2019-11-08] MEDS ORDERED: Ipratropium/Albuterol Neb 3 ML ONE (10:48)
[2019-11-08] MEDS ORDERED: Ipratropium/Albuterol Neb 3 ML IH ONE (11:17)
[2019-11-08] MEDS ORDERED: ceFAZolin 1,000 MG, Sodium Chloride IRRigation 1,000 ML IR ONE ×2 (12:00→12:06)
[2019-11-08] MEDS ORDERED: D5% in Water 1,000 ML IVC PRN (12:06)
[2019-11-08] MEDS ORDERED: Acetaminophen 325 MG TABLET PO PRN (12:06)
[2019-11-08] MEDS ORDERED: Nitroglycerin 0.4 MG TAB.SUBL SL PRN (12:06)
[2019-11-08] MEDS ORDERED: Ondansetron 4 MG/2 ML VIAL IVP PRN (12:06)
[2019-11-08] MEDS ORDERED: Dextrose Gel 15 GM/37.5 ML TUBE PO PRN ×2 (12:06)
[2019-11-08] MEDS ORDERED: Sodium Bicarbonate 150 MEQ in D5% in Water 1,000 ML IVC SCH (12:06)
[2019-11-08] MEDS ORDERED: *HR* Dextrose 50 % in Water (Vial) 50 ML VIAL IVP PRN (12:06)
[2019-11-08] MEDS ORDERED: Ipratropium/Albuterol Neb 3 ML IH PRN (12:06)
[2019-11-08] MEDS ORDERED: Budesonide/Formoterol 160/4.5 1 PUFF INH IH PRN (12:06)
[2019-11-08] MEDS ORDERED: Naloxone 0.4 MG/ML INJ IVP PRN (12:06)
[2019-11-08] MEDS: 0.9 % Sodium Chloride 1,000 ML IVC SCH (13:39)
[2019-11-08] MEDS: Piperacillin/Tazobactam 3.375 GM in 0.9 % Sodium Chloride Mini Bag 100 ML IVPB SCH ×2 (13:40→23:19)
[2019-11-08] MEDS: Insulin LISPRO 300 UNITS/3 ML VIAL SQ SCH ×2 (17:40→23:21)
[2019-11-08] MEDS: Latanoprost 2.5 ML BOTTLE BOTH EYES SCH (20:17)
[2019-11-08] MEDS ORDERED: DAPTOmycin 550 MG in 0.9 % Sodium Chloride 100 ML IVPB SCH (21:00)
[2019-11-09 02:11] LABS: Basophils % 0.1 %; Hematocrit 25.6 % (37.5-50.1); Hemoglobin 8.5 g/dL (12.9-16.9); Immature Granulocytes % 1.5 % (0-4); Lymphocytes # 0.4 K/mcL (0.6-4.6); Lymphocytes % 3.1 %; Mean Corpuscular HGB Conc 33.2 g/dL (31.6-35.5); Mean Corpuscular Hemoglobin 30.8 pg (28.0-33.3); Mean Corpuscular Volume 92.8 fL (83.0-100.0); Mean Platelet Volume 9.6 fL (9.4-12.4); Monocytes # 0.6 K/mcL (0.0-1.3); Monocytes % 4.5 %; Neutrophils # 12.8 K/mcL (1.6-8.9); Platelet Count 262 K/mcL (140-400); Red Blood Count 2.76 M/mcL (4.19-5.50); Red Cell Distribution Width 13.7 % (11.5-14.5); Segmented Neutrophils % 90.8 %; White Blood Count 14.2 K/mcL (4.3-11.1)
[2019-11-09 02:28] LABS: Phosphorous 5.9 mg/dL (2.7-4.5)
[2019-11-09 02:29] LABS: Potassium 5.4 mEq/L (3.5-5.1)
[2019-11-09] MEDS: *HR* Heparin 5,000 UNIT/ML VIAL SQ SCH ×2 (05:08→13:40)
[2019-11-09] MEDS: 0.9 % Sodium Chloride 1,000 ML IVC SCH (06:46)
[2019-11-09] MEDS: Loratadine 10 MG TABLET PO SCH (07:38)
[2019-11-09] MEDS: calcitrioL 0.25 MCG CAPSULE PO SCH (07:38)
[2019-11-09] MEDS: carvediloL 6.25 MG TABLET PO SCH ×2 (07:38→16:33)
[2019-11-09] MEDS: Folic Acid 1 MG TABLET PO SCH (07:38)
[2019-11-09] MEDS: NIFEdipine XL (24 HR) 30 MG TAB.ER.24 PO SCH (07:39)
[2019-11-09] MEDS: Aspirin Enteric Coated 81 MG Tablet PO SCH (07:39)
[2019-11-09] MEDS: polyethylene glycoL 3350 17 GM POWD.PACK PO SCH (07:39)
[2019-11-09] MEDS: Insulin LISPRO 300 UNITS/3 ML VIAL SQ SCH ×5 (07:40→19:44)
[2019-11-09] MEDS ORDERED: Insulin DETEMIR 100 UNIT/ML X5UNITS SQ SCH (09:00)
[2019-11-09] MEDS: Piperacillin/Tazobactam 3.375 GM in 0.9 % Sodium Chloride Mini Bag 100 ML IVPB SCH (13:39)
[2019-11-09 16:49] LABS: Potassium 5.3 mEq/L (3.5-5.1)
[2019-11-09 19:01] LABS: Albumin 2.7 g/dL (3.5-5.7); Albumin/Globulin Ratio 0.9 (1.1-2.2); Bilirubin,Indirect 0.3 mg/dL (0.0-1.0); Bilirubin,Total 0.3 mg/dL (0.3-1.0); Globulin 3.1 g/dL (2.4-3.5); Total Protein 5.8 g/dL (6.4-8.9)
[2019-11-09] MEDS: Apixaban 5 MG TABLET PO SCH (19:44)
[2019-11-09] MEDS: Insulin DETEMIR 100 UNIT/ML X5UNITS SQ SCH (19:44)
[2019-11-09] MEDS: Latanoprost 2.5 ML BOTTLE BOTH EYES SCH (19:46)
[2019-11-09] MEDS: Morphine Sulfate 2 MG/ML SYRINGE IVP PRN (21:34)
[2019-11-10] MEDS: Piperacillin/Tazobactam 3.375 GM in 0.9 % Sodium Chloride Mini Bag 100 ML IVPB SCH (00:48)
[2019-11-10 01:39] LABS: Basophils # 0.1 K/mcL (0.0-0.2); Basophils % 0.5 %; Eosinophils # 0.2 K/mcL (0.0-0.6); Eosinophils % 1.4 %; Hematocrit 24.5 % (37.5-50.1); Hemoglobin 7.9 g/dL (12.9-16.9); Immature Granulocytes % 2.5 % (0-4); Lymphocytes # 1.2 K/mcL (0.6-4.6); Lymphocytes % 9.4 %; Mean Corpuscular HGB Conc 32.2 g/dL (31.6-35.5); Mean Corpuscular Hemoglobin 30.6 pg (28.0-33.3); Mean Platelet Volume 9.8 fL (9.4-12.4); Monocytes # 1.1 K/mcL (0.0-1.3); Monocytes % 8.6 %; Neutrophils # 10.1 K/mcL (1.6-8.9); Platelet Count 305 K/mcL (140-400); Red Blood Count 2.58 M/mcL (4.19-5.50); Red Cell Distribution Width 14.2 % (11.5-14.5); Segmented Neutrophils % 77.6 %
[2019-11-10 02:01] LABS: Calcium 7.8 mg/dL (8.6-10.3); Magnesium 2.1 mg/dL (1.6-2.6); Potassium 4.9 mEq/L (3.5-5.1)
[2019-11-10] MEDS: Morphine Sulfate 2 MG/ML SYRINGE IVP PRN ×2 (03:39→09:50)
[2019-11-10] MEDS: NIFEdipine XL (24 HR) 30 MG TAB.ER.24 PO SCH (07:38)
[2019-11-10] MEDS: hydrALAZINE 25 MG TABLET PO SCH ×3 (07:39→23:32)
[2019-11-10] MEDS: Loratadine 10 MG TABLET PO SCH (07:39)
[2019-11-10] MEDS: carvediloL 6.25 MG TABLET PO SCH ×2 (07:39→17:41)
[2019-11-10] MEDS: calcitrioL 0.25 MCG CAPSULE PO SCH (07:39)
[2019-11-10] MEDS: Aspirin Enteric Coated 81 MG Tablet PO SCH (07:39)
[2019-11-10] MEDS: Apixaban 5 MG TABLET PO SCH ×2 (07:39→20:34)
[2019-11-10] MEDS: Folic Acid 1 MG TABLET PO SCH (07:39)
[2019-11-10] MEDS: Insulin LISPRO 300 UNITS/3 ML VIAL SQ SCH ×7 (07:40→23:28)
[2019-11-10] MEDS: Insulin DETEMIR 100 UNIT/ML X5UNITS SQ SCH ×2 (07:40→22:34)
[2019-11-10] MEDS: polyethylene glycoL 3350 17 GM POWD.PACK PO SCH (07:40)
[2019-11-10] MEDS: *HR* OxyCODONE/APAP 10/325 TABLET PO PRN ×2 (12:28→20:34)
[2019-11-10 12:29] LABS: Protein/Creatinine Ratio,Urine 1.53 mg/mg (0.00-0.20); Sodium, Urine 16.5 mEq/L
[2019-11-10 12:41] LABS: Amorphous Sediment,Urine Few per hpf (None-Few); Bilirubin,Urine Negative (Negative); Blood,Urine Large (Negative); Clarity,Urine Turbid (Clear); Color,Urine Light-Yellow (Yellow); Glucose,Urine (UA) Normal (Normal); Ketones,Urine Negative (Negative); Leukocyte Esterase,Urine Negative (Negative); Nitrite,Urine Negative (Negative); PH,Urine 5.5 pH Units (5.0-8.0); Protein,Urine 100 mg/dL (Neg-Trace); RBC,Urine 50-100 per hpf (0-3); Specific Gravity,Urine 1.017 (1.010-1.025); Urobilinogen,Urine Normal (Normal)
[2019-11-10 15:09] LABS: % Iron Saturation 23 % (20-55); Iron 50 mcg/dL (65-175); Transferrin 158 mg/dL (203-362)
[2019-11-10 15:26] LABS: Ferritin 118 ng/mL (20-250)
[2019-11-10 15:33] LABS: Folate > 22.3 ng/mL (3.0-16.0); Vitamin B12 580 pg/mL (250-1100)
[2019-11-10] MEDS: Albumin 25% 25gram/100mL 25 GM/100 ML IV.SOLN IVPB SCH ×2 (17:41→23:32)
[2019-11-11] MEDS: Latanoprost 2.5 ML BOTTLE BOTH EYES SCH ×2 (04:12→21:53)
[2019-11-11 05:48] LABS: Basophils # 0.1 K/mcL (0.0-0.2); Basophils % 0.5 %; Eosinophils # 0.2 K/mcL (0.0-0.6); Eosinophils % 1.6 %; Hematocrit 25.5 % (37.5-50.1); Hemoglobin 8.1 g/dL (12.9-16.9); Immature Granulocytes % 2.5 % (0-4); Lymphocytes # 0.9 K/mcL (0.6-4.6); Mean Corpuscular HGB Conc 31.8 g/dL (31.6-35.5); Mean Corpuscular Hemoglobin 30.3 pg (28.0-33.3); Mean Corpuscular Volume 95.5 fL (83.0-100.0); Mean Platelet Volume 9.5 fL (9.4-12.4); Monocytes # 1.3 K/mcL (0.0-1.3); Monocytes % 10.1 %; Neutrophils # 10.3 K/mcL (1.6-8.9); Platelet Count 328 K/mcL (140-400); Red Blood Count 2.67 M/mcL (4.19-5.50); Red Cell Distribution Width 14.5 % (11.5-14.5); Segmented Neutrophils % 78.3 %; White Blood Count 13.2 K/mcL (4.3-11.1)
[2019-11-11 05:59] LABS: Calcium 8.5 mg/dL (8.6-10.3); Potassium 5.3 mEq/L (3.5-5.1)
[2019-11-11 06:00] LABS: Magnesium 2.2 mg/dL (1.6-2.6); Phosphorous 4.9 mg/dL (2.7-4.5)
[2019-11-11] MEDS: Insulin LISPRO 300 UNITS/3 ML VIAL SQ SCH ×4 (08:42→21:52)
[2019-11-11] MEDS: polyethylene glycoL 3350 17 GM POWD.PACK PO SCH (09:18)
[2019-11-11] MEDS: carvediloL 6.25 MG TABLET PO SCH ×2 (09:19→16:43)
[2019-11-11] MEDS: Folic Acid 1 MG TABLET PO SCH (09:19)
[2019-11-11] MEDS: Loratadine 10 MG TABLET PO SCH (09:19)
[2019-11-11] MEDS: calcitrioL 0.25 MCG CAPSULE PO SCH (09:19)
[2019-11-11] MEDS: Apixaban 5 MG TABLET PO SCH ×2 (09:19→20:20)
[2019-11-11] MEDS: NIFEdipine XL (24 HR) 30 MG TAB.ER.24 PO SCH (09:19)
[2019-11-11] MEDS: Aspirin Enteric Coated 81 MG Tablet PO SCH (09:19)
[2019-11-11] MEDS: Albumin 25% 25gram/100mL 25 GM/100 ML IV.SOLN IVPB SCH ×2 (09:20→16:43)
[2019-11-11] MEDS: Insulin DETEMIR 100 UNIT/ML X5UNITS SQ SCH ×2 (09:23→21:53)
[2019-11-11] MEDS: hydrALAZINE 25 MG TABLET PO SCH ×2 (09:25→15:11)
[2019-11-11] MEDS: *HR* OxyCODONE/APAP 10/325 TABLET PO PRN (20:23)
[2019-11-12] MEDS: Albumin 25% 25gram/100mL 25 GM/100 ML IV.SOLN IVPB SCH ×2 (01:14→08:54)
[2019-11-12] MEDS: hydrALAZINE 25 MG TABLET PO SCH ×4 (01:15→23:35)
[2019-11-12 07:44] LABS: Basophils # 0.1 K/mcL (0.0-0.2); Basophils % 0.5 %; Eosinophils # 0.2 K/mcL (0.0-0.6); Eosinophils % 1.1 %; Hematocrit 24.9 % (37.5-50.1); Hemoglobin 7.9 g/dL (12.9-16.9); Immature Granulocytes % 2.4 % (0-4); Lymphocytes # 0.9 K/mcL (0.6-4.6); Lymphocytes % 6.4 %; Mean Corpuscular HGB Conc 31.7 g/dL (31.6-35.5); Mean Corpuscular Hemoglobin 30.9 pg (28.0-33.3); Mean Corpuscular Volume 97.3 fL (83.0-100.0); Mean Platelet Volume 9.6 fL (9.4-12.4); Monocytes # 1.4 K/mcL (0.0-1.3); Monocytes % 9.7 %; Neutrophils # 11.5 K/mcL (1.6-8.9); Platelet Count 327 K/mcL (140-400); Red Blood Count 2.56 M/mcL (4.19-5.50); Red Cell Distribution Width 14.7 % (11.5-14.5); Segmented Neutrophils % 79.9 %; White Blood Count 14.4 K/mcL (4.3-11.1)
[2019-11-12 07:55] LABS: Calcium 8.8 mg/dL (8.6-10.3); Magnesium 2.2 mg/dL (1.6-2.6); Phosphorous 4.7 mg/dL (2.7-4.5); Potassium 5.2 mEq/L (3.5-5.1)
[2019-11-12] MEDS: Aspirin Enteric Coated 81 MG Tablet PO SCH (08:52)
[2019-11-12] MEDS: carvediloL 25 MG TABLET PO SCH ×2 (08:53→17:02)
[2019-11-12] MEDS: Apixaban 5 MG TABLET PO SCH ×2 (08:53→19:53)
[2019-11-12] MEDS: Loratadine 10 MG TABLET PO SCH (08:53)
[2019-11-12] MEDS: amLODIPine 5 MG TABLET PO SCH (08:53)
[2019-11-12] MEDS: calcitrioL 0.25 MCG CAPSULE PO SCH (08:53)
[2019-11-12] MEDS: Folic Acid 1 MG TABLET PO SCH (08:53)
[2019-11-12] MEDS: Insulin LISPRO 300 UNITS/3 ML VIAL SQ SCH ×4 (08:54→20:59)
[2019-11-12] MEDS: Insulin DETEMIR 100 UNIT/ML X5UNITS SQ SCH ×2 (08:54→20:59)
[2019-11-12] MEDS: polyethylene glycoL 3350 17 GM POWD.PACK PO SCH (09:05)
[2019-11-12] MEDS ORDERED: methylPREDNISolone 125 MG/2 ML VIAL IVP ONE (12:29)
[2019-11-12] MEDS: Ipratropium/Albuterol Neb 3 ML IH SCH ×4 (12:35→23:02)
[2019-11-12 12:39] LABS: ABG Base Excess -1 mEq/L (-2 to 3); ABG HCO3 24 mEq/L (21-27); ABG Oxygen Saturation 97 % (95-98); ABG PCO2 41 mmHg (35-45); ABG PH 7.38 pH Units (7.32-7.45); ABG PO2 97 mmHg (85-104); ABG TCO2 25 mEq/L (20-26); Blood Gas Pressure Support 12 cm H2O
[2019-11-12] MEDS ORDERED: Furosemide 40 MG/4 ML VIAL IVP ONE (13:44)
[2019-11-12] MEDS: MethylPREDNISolone 40 MG/ML VIAL IVP SCH ×2 (17:02→23:32)
[2019-11-12] MEDS: *HR* OxyCODONE/APAP 10/325 TABLET PO PRN (19:53)
[2019-11-12] MEDS: Latanoprost 2.5 ML BOTTLE BOTH EYES SCH (21:00)
[2019-11-12] MEDS: *HR* OxyCODONE/APAP 5/325 TABLET PO PRN (23:34)
[2019-11-13] MEDS: Ipratropium/Albuterol Neb 3 ML IH SCH ×6 (03:50→23:00)
[2019-11-13] MEDS: *HR* OxyCODONE/APAP 10/325 TABLET PO PRN (03:54)
[2019-11-13 05:39] LABS: Basophils % 0.2 %; Hemoglobin 7.9 g/dL (12.9-16.9); Immature Granulocytes % 2.6 % (0-4); Lymphocytes # 0.3 K/mcL (0.6-4.6); Lymphocytes % 2.9 %; Mean Corpuscular HGB Conc 31.6 g/dL (31.6-35.5); Mean Corpuscular Hemoglobin 30.3 pg (28.0-33.3); Mean Corpuscular Volume 95.8 fL (83.0-100.0); Mean Platelet Volume 9.6 fL (9.4-12.4); Monocytes # 0.2 K/mcL (0.0-1.3); Monocytes % 2.3 %; Neutrophils # 9.8 K/mcL (1.6-8.9); Platelet Count 304 K/mcL (140-400); Red Blood Count 2.61 M/mcL (4.19-5.50); Red Cell Distribution Width 14.6 % (11.5-14.5); White Blood Count 10.6 K/mcL (4.3-11.1)
[2019-11-13 05:58] LABS: Calcium 8.6 mg/dL (8.6-10.3); Magnesium 2.2 mg/dL (1.6-2.6); Phosphorous 6.2 mg/dL (2.7-4.5)
[2019-11-13] MEDS: MethylPREDNISolone 40 MG/ML VIAL IVP SCH ×2 (07:53→17:57)
[2019-11-13] MEDS: Insulin LISPRO 300 UNITS/3 ML VIAL SQ SCH ×4 (07:53→20:51)
[2019-11-13] MEDS: carvediloL 25 MG TABLET PO SCH ×2 (07:54→16:06)
[2019-11-13] MEDS: Insulin DETEMIR 100 UNIT/ML X5UNITS SQ SCH ×2 (07:54→20:52)
[2019-11-13] MEDS: Loratadine 10 MG TABLET PO SCH (07:55)
[2019-11-13] MEDS: hydrALAZINE 25 MG TABLET PO SCH ×3 (07:55→23:59)
[2019-11-13] MEDS: Apixaban 5 MG TABLET PO SCH ×2 (07:55→20:51)
[2019-11-13] MEDS: calcitrioL 0.25 MCG CAPSULE PO SCH (07:55)
[2019-11-13] MEDS: amLODIPine 5 MG TABLET PO SCH (07:55)
[2019-11-13] MEDS: Aspirin Enteric Coated 81 MG Tablet PO SCH (07:56)
[2019-11-13] MEDS: polyethylene glycoL 3350 17 GM POWD.PACK PO SCH (07:56)
[2019-11-13] MEDS: Folic Acid 1 MG TABLET PO SCH (07:56)
[2019-11-13] MEDS: *HR* OxyCODONE/APAP 5/325 TABLET PO PRN (11:16)
[2019-11-13] MEDS ORDERED: Furosemide 40 MG/4 ML VIAL IVP ONE (11:34)
[2019-11-13] MEDS: Latanoprost 2.5 ML BOTTLE BOTH EYES SCH (20:52)
[2019-11-14] MEDS: Ipratropium/Albuterol Neb 3 ML IH SCH ×6 (03:26→23:38)
[2019-11-14 05:08] LABS: Basophils % 0.2 %; Hematocrit 25.1 % (37.5-50.1); Hemoglobin 8.3 g/dL (12.9-16.9); Immature Granulocytes % 2.9 % (0-4); Lymphocytes # 0.5 K/mcL (0.6-4.6); Lymphocytes % 4.1 %; Mean Corpuscular HGB Conc 33.1 g/dL (31.6-35.5); Mean Corpuscular Volume 93.7 fL (83.0-100.0); Mean Platelet Volume 10.1 fL (9.4-12.4); Monocytes # 0.7 K/mcL (0.0-1.3); Monocytes % 5.9 %; Neutrophils # 9.9 K/mcL (1.6-8.9); Platelet Count 384 K/mcL (140-400); Red Blood Count 2.68 M/mcL (4.19-5.50); Red Cell Distribution Width 14.5 % (11.5-14.5); Segmented Neutrophils % 86.9 %; White Blood Count 11.4 K/mcL (4.3-11.1)
[2019-11-14 05:20] LABS: Calcium 8.4 mg/dL (8.6-10.3); Magnesium 2.3 mg/dL (1.6-2.6); Phosphorous 5.9 mg/dL (2.7-4.5); Potassium 5.1 mEq/L (3.5-5.1)
[2019-11-14] MEDS: *HR* OxyCODONE/APAP 5/325 TABLET PO PRN (05:26)
[2019-11-14] MEDS: MethylPREDNISolone 40 MG/ML VIAL IVP SCH (05:27)
[2019-11-14] MEDS: predniSONE 20 MG TABLET PO SCH (08:15)
[2019-11-14] MEDS: Insulin LISPRO 300 UNITS/3 ML VIAL SQ SCH ×5 (08:15→20:35)
[2019-11-14] MEDS: hydrALAZINE 25 MG TABLET PO SCH ×2 (08:15→16:46)
[2019-11-14] MEDS: carvediloL 25 MG TABLET PO SCH ×2 (08:15→16:46)
[2019-11-14] MEDS: amLODIPine 5 MG TABLET PO SCH (08:15)
[2019-11-14] MEDS: Apixaban 5 MG TABLET PO SCH ×2 (08:16→20:36)
[2019-11-14] MEDS: Loratadine 10 MG TABLET PO SCH (08:16)
[2019-11-14] MEDS: Insulin DETEMIR 100 UNIT/ML X5UNITS SQ SCH ×2 (08:16→20:35)
[2019-11-14] MEDS: calcitrioL 0.25 MCG CAPSULE PO SCH (08:16)
[2019-11-14] MEDS: polyethylene glycoL 3350 17 GM POWD.PACK PO SCH (08:16)
[2019-11-14] MEDS: Folic Acid 1 MG TABLET PO SCH (08:16)
[2019-11-14] MEDS: Aspirin Enteric Coated 81 MG Tablet PO SCH (08:16)
[2019-11-14] MEDS ORDERED: Albumin 25% 25gram/100mL 25 GM/100 ML IV.SOLN IVPB ONE (16:00)
[2019-11-14] MEDS: Amoxicillin/Clavulanate 500 MG TABLET PO SCH (16:46)
[2019-11-14] MEDS: *HR* OxyCODONE/APAP 10/325 TABLET PO PRN (20:38)
[2019-11-14] MEDS: Latanoprost 2.5 ML BOTTLE BOTH EYES SCH (20:41)
[2019-11-15] MEDS: hydrALAZINE 25 MG TABLET PO SCH ×3 (01:42→16:02)
[2019-11-15] MEDS: Ipratropium/Albuterol Neb 3 ML IH SCH ×4 (03:31→16:06)
[2019-11-15 05:16] LABS: Basophils % 0.1 %; Eosinophils % 0.1 %; Hematocrit 24.2 % (37.5-50.1); Immature Granulocytes % 3.3 % (0-4); Lymphocytes # 0.5 K/mcL (0.6-4.6); Lymphocytes % 4.7 %; Mean Corpuscular HGB Conc 33.1 g/dL (31.6-35.5); Mean Corpuscular Hemoglobin 30.3 pg (28.0-33.3); Mean Corpuscular Volume 91.7 fL (83.0-100.0); Mean Platelet Volume 10.2 fL (9.4-12.4); Monocytes # 0.8 K/mcL (0.0-1.3); Monocytes % 7.4 %; Neutrophils # 8.8 K/mcL (1.6-8.9); Platelet Count 403 K/mcL (140-400); Red Blood Count 2.64 M/mcL (4.19-5.50); Red Cell Distribution Width 14.6 % (11.5-14.5); Segmented Neutrophils % 84.4 %; White Blood Count 10.5 K/mcL (4.3-11.1)
[2019-11-15 05:29] LABS: Calcium 8.4 mg/dL (8.6-10.3); Magnesium 2.5 mg/dL (1.6-2.6); Phosphorous 5.8 mg/dL (2.7-4.5); Potassium 5.2 mEq/L (3.5-5.1)
[2019-11-15] MEDS: amLODIPine 5 MG TABLET PO SCH (07:48)
[2019-11-15] MEDS: carvediloL 25 MG TABLET PO SCH ×2 (07:48→16:02)
[2019-11-15] MEDS: Amoxicillin/Clavulanate 500 MG TABLET PO SCH ×2 (07:48→16:02)
[2019-11-15] MEDS: calcitrioL 0.25 MCG CAPSULE PO SCH (07:49)
[2019-11-15] MEDS: Folic Acid 1 MG TABLET PO SCH (07:49)
[2019-11-15] MEDS: Apixaban 5 MG TABLET PO SCH (07:49)
[2019-11-15] MEDS: predniSONE 20 MG TABLET PO SCH (07:49)
[2019-11-15] MEDS: Loratadine 10 MG TABLET PO SCH (07:49)
[2019-11-15] MEDS: Aspirin Enteric Coated 81 MG Tablet PO SCH (07:49)
[2019-11-15] MEDS: Insulin LISPRO 300 UNITS/3 ML VIAL SQ SCH ×6 (07:52→16:02)
[2019-11-15] MEDS: Insulin DETEMIR 100 UNIT/ML X5UNITS SQ SCH (07:52)
[2019-11-15] MEDS: polyethylene glycoL 3350 17 GM POWD.PACK PO SCH (07:53)
[2019-11-15 15:16] VITALS: BP 146/69
[2019-11-15] MEDS: *HR* OxyCODONE/APAP 10/325 TABLET PO PRN (16:06)
[2019-11-15] MEDS ORDERED: Insulin DETEMIR 100 UNIT/ML X5UNITS SQ SCH (21:00)
[2019-11-16] MEDS ORDERED: predniSONE 20 MG TABLET PO SCH (09:00)
== END 2019-11-15 17:52 | DRG 239 ==
LOC: 2NNU → SUATTDRO 16:28 → 3ANU 11-10 14:05
PROVIDERS: ADMIT Pharmacist; ATTEND Internal Medicine

== ENCOUNTER 2019-12-20 10:14 | Inpatient (IN) ==
[2019-12-20 11:22] LABS: Basophils # 0.1 K/mcL (0.0-0.2); Basophils % 0.8 %; Eosinophils # 0.3 K/mcL (0.0-0.6); Eosinophils % 3.3 %; Hematocrit 26.4 % (37.5-50.1); Hemoglobin 8.4 g/dL (12.9-16.9); Immature Granulocytes % 2.4 % (0-4); Lymphocytes # 1.3 K/mcL (0.6-4.6); Mean Corpuscular HGB Conc 31.8 g/dL (31.6-35.5); Mean Corpuscular Hemoglobin 28.7 pg (28.0-33.3); Mean Corpuscular Volume 90.1 fL (83.0-100.0); Mean Platelet Volume 10.5 fL (9.4-12.4); Monocytes # 0.8 K/mcL (0.0-1.3); Neutrophils # 6.7 K/mcL (1.6-8.9); Platelet Count 249 K/mcL (140-400); Red Blood Count 2.93 M/mcL (4.19-5.50); Red Cell Distribution Width 14.2 % (11.5-14.5); Segmented Neutrophils % 71.5 %; White Blood Count 9.3 K/mcL (4.3-11.1)
[2019-12-20 11:45] LABS: Albumin 3.2 g/dL (3.5-5.7); Albumin/Globulin Ratio 0.9 (1.1-2.2); Bilirubin,Total 0.4 mg/dL (0.3-1.0); Calcium 8.8 mg/dL (8.6-10.3); Globulin 3.4 g/dL (2.4-3.5); Potassium 4.6 mEq/L (3.5-5.1); Total Protein 6.6 g/dL (6.4-8.9)
[2019-12-20] MEDS ORDERED: Naloxone 0.4 MG/ML INJ IVP PRN (12:38)
[2019-12-20] MEDS ORDERED: Ondansetron 4 MG/2 ML VIAL IVP PRN (12:38)
[2019-12-20] MEDS ORDERED: Dextrose Gel 15 GM/37.5 ML TUBE PO PRN ×2 (12:40)
[2019-12-20] MEDS ORDERED: *HR* Dextrose 50 % in Water (Vial) 50 ML VIAL IVP PRN (12:40)
[2019-12-20] MEDS ORDERED: D5% in Water 1,000 ML IVC PRN (12:40)
[2019-12-20 13:55] LABS: Adenovirus Not Detected (Not Detect); Bordetella Pertussis Not Detected (Not Detect); Chlamydophila pneumoniae Not Detected (Not Detect); Coronavirus 229E Not Detected (Not Detect); Coronavirus HKU1 Not Detected (Not Detect); Coronavirus NL63 Not Detected (Not Detect); Coronavirus OC43 Not Detected (Not Detect); Human Metapneumovirus Not Detected (Not Detect); Human Rhinovirus/Enterovirus Not Detected (Not Detect); Influenza A Subtype 2009 H1 Not Detected (Not Detect); Influenza B Not Detected (Not Detect); Mycoplasma pneumoniae Not Detected (Not Detect); Parainfluenza Virus 1 Not Detected (Not Detect); Parainfluenza Virus 2 Not Detected (Not Detect); Parainfluenza Virus 3 Not Detected (Not Detect); Parainfluenza Virus 4 Not Detected (Not Detect); Respiratory Syncytial Virus Not Detected (Not Detect); SARS-CoV-2 Not Detected (Not Detect)
[2019-12-20] MEDS: *HR* Heparin 5,000 UNIT/ML VIAL SQ SCH (18:17)
[2019-12-20] MEDS: Insulin LISPRO 300 UNITS/3 ML VIAL SQ SCH (18:18)
[2019-12-20] MEDS: *HR* HYDROcodone/Acet 5/325 mg TABLET PO PRN (20:55)
[2019-12-20] MEDS: Insulin DETEMIR 100 UNIT/ML X5UNITS SQ SCH (20:55)
[2019-12-20] MEDS: Nystatin Cream 15 GM TUBE TP SCH (20:55)
[2019-12-21] MEDS: *HR* Heparin 5,000 UNIT/ML VIAL SQ SCH ×2 (04:26→19:53)
[2019-12-21 06:26] LABS: Basophils # 0.1 K/mcL (0.0-0.2); Basophils % 0.6 %; Eosinophils # 0.4 K/mcL (0.0-0.6); Eosinophils % 4.2 %; Hematocrit 26.2 % (37.5-50.1); Hemoglobin 8.1 g/dL (12.9-16.9); Immature Granulocytes % 1.4 % (0-4); Lymphocytes # 1.5 K/mcL (0.6-4.6); Lymphocytes % 16.4 %; Mean Corpuscular HGB Conc 30.9 g/dL (31.6-35.5); Mean Corpuscular Hemoglobin 28.3 pg (28.0-33.3); Mean Corpuscular Volume 91.6 fL (83.0-100.0); Mean Platelet Volume 10.1 fL (9.4-12.4); Monocytes # 0.9 K/mcL (0.0-1.3); Monocytes % 10.4 %; Neutrophils # 5.9 K/mcL (1.6-8.9); Platelet Count 241 K/mcL (140-400); Red Blood Count 2.86 M/mcL (4.19-5.50); Red Cell Distribution Width 14.1 % (11.5-14.5); White Blood Count 8.8 K/mcL (4.3-11.1)
[2019-12-21 06:48] LABS: Calcium 8.7 mg/dL (8.6-10.3)
[2019-12-21] MEDS ORDERED: Loratadine 10 MG TABLET PO PRN (07:48)
[2019-12-21] MEDS ORDERED: Budesonide/Formoterol 160/4.5 1 PUFF INH IH PRN (07:48)
[2019-12-21] MEDS: calcitrioL 0.25 MCG CAPSULE PO SCH (08:22)
[2019-12-21] MEDS: Furosemide 40 MG TABLET PO SCH (08:22)
[2019-12-21] MEDS: Folic Acid 1 MG TABLET PO SCH (08:23)
[2019-12-21] MEDS: carvediloL 6.25 MG TABLET PO SCH ×3 (08:23→19:53)
[2019-12-21] MEDS: hydrALAZINE 25 MG TABLET PO SCH ×3 (08:23→23:56)
[2019-12-21] MEDS: Nystatin Cream 15 GM TUBE TP SCH ×2 (08:24→21:22)
[2019-12-21] MEDS: Insulin LISPRO 300 UNITS/3 ML VIAL SQ SCH ×3 (08:24→17:44)
[2019-12-21] MEDS: Febuxostat [Uloric] 40 MG PO SCH (08:25)
[2019-12-21] MEDS ORDERED: amLODIPine 5 MG TABLET PO SCH (09:00)
[2019-12-21] MEDS ORDERED: *HR* FentaNYL (PF) 100 MCG/2 ML VIAL ONE (17:17)
[2019-12-21] MEDS ORDERED: *HR* Propofol 200 MG/20 ML VIAL IVP ONE (17:18)
[2019-12-21] MEDS ORDERED: *HR* OxyCODONE Immed Rel 5 MG TABLET PO PRN (18:22)
[2019-12-21] MEDS: *HR* HYDROmorphone PF 0.5 MG/0.5 ML SYRINGE IVP PRN ×2 (18:56→19:11)
[2019-12-21] MEDS: *HR* HYDROcodone/Acet 5/325 mg TABLET PO PRN (21:21)
[2019-12-21] MEDS: Insulin DETEMIR 100 UNIT/ML X5UNITS SQ SCH (21:22)
[2019-12-21] MEDS: Latanoprost 2.5 ML BOTTLE BOTH EYES SCH (21:22)
[2019-12-22 01:05] LABS: Hematocrit 26.9 % (37.5-50.1); Hemoglobin 8.7 g/dL (12.9-16.9); Mean Corpuscular HGB Conc 32.3 g/dL (31.6-35.5); Mean Corpuscular Hemoglobin 29.5 pg (28.0-33.3); Mean Corpuscular Volume 91.2 fL (83.0-100.0); Mean Platelet Volume 9.9 fL (9.4-12.4); Platelet Count 253 K/mcL (140-400); Red Blood Count 2.95 M/mcL (4.19-5.50); Red Cell Distribution Width 13.9 % (11.5-14.5)
[2019-12-22 01:23] LABS: Calcium 8.6 mg/dL (8.6-10.3); Potassium 5.2 mEq/L (3.5-5.1)
[2019-12-22] MEDS: *HR* HYDROcodone/Acet 5/325 mg TABLET PO PRN ×2 (05:00→20:44)
[2019-12-22] MEDS: *HR* Heparin 5,000 UNIT/ML VIAL SQ SCH ×2 (05:00→16:35)
[2019-12-22] MEDS ORDERED: Sennosides/Docusate Sodium TABLET PO SCH (09:00)
[2019-12-22] MEDS ORDERED: amLODIPine 5 MG TABLET PO SCH (09:00)
[2019-12-22] MEDS: hydrALAZINE 25 MG TABLET PO SCH ×2 (09:02→16:35)
[2019-12-22] MEDS: calcitrioL 0.25 MCG CAPSULE PO SCH (09:03)
[2019-12-22] MEDS: carvediloL 6.25 MG TABLET PO SCH ×2 (09:03→16:35)
[2019-12-22] MEDS: Insulin LISPRO 300 UNITS/3 ML VIAL SQ SCH ×3 (09:03→16:35)
[2019-12-22] MEDS: Furosemide 40 MG TABLET PO SCH (09:03)
[2019-12-22] MEDS: Nystatin Cream 15 GM TUBE TP SCH ×2 (09:05→20:49)
[2019-12-22] MEDS: Folic Acid 1 MG TABLET PO SCH (09:05)
[2019-12-22] MEDS: Febuxostat [Uloric] 40 MG PO SCH (09:13)
[2019-12-22] MEDS: amLODIPine 5 MG TABLET PO SCH (09:13)
[2019-12-22] MEDS: Apixaban 5 MG TABLET PO SCH (20:43)
[2019-12-22] MEDS: Insulin DETEMIR 100 UNIT/ML X5UNITS SQ SCH (20:44)
[2019-12-22] MEDS: Latanoprost 2.5 ML BOTTLE BOTH EYES SCH (20:49)
[2019-12-23] MEDS: hydrALAZINE 25 MG TABLET PO SCH ×3 (01:31→16:22)
[2019-12-23] MEDS: *HR* HYDROcodone/Acet 5/325 mg TABLET PO PRN ×3 (03:23→16:26)
[2019-12-23 05:21] LABS: Hematocrit 25.6 % (37.5-50.1); Hemoglobin 7.9 g/dL (12.9-16.9); Mean Corpuscular HGB Conc 30.9 g/dL (31.6-35.5); Mean Corpuscular Hemoglobin 28.4 pg (28.0-33.3); Mean Corpuscular Volume 92.1 fL (83.0-100.0); Mean Platelet Volume 10.6 fL (9.4-12.4); Platelet Count 231 K/mcL (140-400); Red Blood Count 2.78 M/mcL (4.19-5.50); Red Cell Distribution Width 14.4 % (11.5-14.5); White Blood Count 9.4 K/mcL (4.3-11.1)
[2019-12-23 05:40] LABS: Calcium 8.8 mg/dL (8.6-10.3); Potassium 4.3 mEq/L (3.5-5.1)
[2019-12-23] MEDS: *HR* Heparin 5,000 UNIT/ML VIAL SQ SCH (07:44)
[2019-12-23] MEDS: carvediloL 6.25 MG TABLET PO SCH ×2 (10:55→16:21)
[2019-12-23] MEDS: calcitrioL 0.25 MCG CAPSULE PO SCH (10:56)
[2019-12-23] MEDS: Folic Acid 1 MG TABLET PO SCH (10:56)
[2019-12-23] MEDS: amLODIPine 5 MG TABLET PO SCH (10:56)
[2019-12-23] MEDS: Furosemide 40 MG TABLET PO SCH (10:57)
[2019-12-23] MEDS: Apixaban 5 MG TABLET PO SCH (10:57)
[2019-12-23] MEDS: Insulin LISPRO 300 UNITS/3 ML VIAL SQ SCH ×2 (10:59→12:39)
[2019-12-23] MEDS: Nystatin Cream 15 GM TUBE TP SCH (11:03)
[2019-12-23] MEDS: Febuxostat [Uloric] 40 MG PO SCH (11:04)
[2019-12-23 16:17] VITALS: BP 168/81
== END 2019-12-23 16:36 | disposition other institution (70) | DRG 565 ==
LOC: EMEROOARM 10:14 → 3NENU 10:14
PROVIDERS: ADMIT Internal Medicine; ATTEND Internal Medicine

== ENCOUNTER 2019-12-26 16:59 | Inpatient (IN) ==
[2019-12-26] MEDS ORDERED: Ondansetron 4 MG/2 ML VIAL IVP PRN (18:39)
[2019-12-26] MEDS ORDERED: Naloxone 0.4 MG/ML INJ IVP PRN (18:39)
[2019-12-26] MEDS ORDERED: *HR* Dextrose 50 % in Water (Vial) 50 ML VIAL IVP PRN (18:53)
[2019-12-26] MEDS ORDERED: D5% in Water 1,000 ML IVC PRN (18:53)
[2019-12-26] MEDS ORDERED: Dextrose Gel 15 GM/37.5 ML TUBE PO PRN ×2 (18:53)
[2019-12-26] MEDS ORDERED: Ipratropium/Albuterol Neb 3 ML IH PRN (19:17)
[2019-12-26] MEDS ORDERED: *HR* Labetalol 20 MG/4 ML SYRINGE IVP PRN (19:18)
[2019-12-26 20:16] LABS: Hematocrit 26.4 % (37.5-50.1); Hemoglobin 8.4 g/dL (12.9-16.9); Mean Corpuscular HGB Conc 31.8 g/dL (31.6-35.5); Mean Platelet Volume 10.1 fL (9.4-12.4); Platelet Count 243 K/mcL (140-400); Red Cell Distribution Width 14.4 % (11.5-14.5); White Blood Count 9.5 K/mcL (4.3-11.1)
[2019-12-26 20:26] LABS: Calcium 8.4 mg/dL (8.6-10.3); Potassium 4.6 mEq/L (3.5-5.1)
[2019-12-26] MEDS: Piperacillin/Tazobactam 3.375 GM in 0.9 % Sodium Chloride Mini Bag 100 ML IVPB SCH (20:28)
[2019-12-26] MEDS: Insulin DETEMIR 100 UNIT/ML X5UNITS SQ SCH (20:29)
[2019-12-26 21:02] LABS: INR 1.3; Prothrombin Time 15.3 Seconds (9.4-12.1)
[2019-12-26] MEDS ORDERED: 0.9 % Sodium Chloride 1,000 ML IVC SCH (21:45)
[2019-12-26] MEDS: Apixaban 5 MG TABLET PO SCH (22:03)
[2019-12-27] MEDS: Piperacillin/Tazobactam 3.375 GM in 0.9 % Sodium Chloride Mini Bag 100 ML IVPB SCH ×2 (05:40→18:49)
[2019-12-27] MEDS: Insulin LISPRO 300 UNITS/3 ML VIAL SQ SCH ×3 (08:13→17:34)
[2019-12-27] MEDS: Apixaban 5 MG TABLET PO SCH ×2 (08:14→20:44)
[2019-12-27] MEDS: Insulin DETEMIR 100 UNIT/ML X5UNITS SQ SCH ×2 (08:23→20:44)
[2019-12-27 11:56] LABS: Calcium 8.4 mg/dL (8.6-10.3); Potassium 4.6 mEq/L (3.5-5.1)
[2019-12-27] MEDS ORDERED: Nitroglycerin 0.4 MG TAB.SUBL SL PRN (12:21)
[2019-12-27] MEDS ORDERED: Budesonide/Formoterol 160/4.5 1 PUFF INH IH PRN (12:21)
[2019-12-27] MEDS ORDERED: Artificial Tears SOLN 15 ML BOTTLE BOTH EYES PRN (12:21)
[2019-12-27] MEDS ORDERED: 0.9 % Sodium Chloride 1,000 ML IVC SCH (12:30)
[2019-12-27] MEDS: carvediloL 6.25 MG TABLET PO SCH (17:35)
[2019-12-27] MEDS: hydrALAZINE 25 MG TABLET PO SCH ×2 (17:35→22:59)
[2019-12-27] MEDS: Acetaminophen 325 MG TABLET PO PRN (22:59)
[2019-12-27] MEDS: Latanoprost 2.5 ML BOTTLE BOTH EYES SCH (22:59)
[2019-12-28] MEDS ORDERED: Melatonin 3 MG TABLET PO ONE (00:25)
[2019-12-28] MEDS: Piperacillin/Tazobactam 3.375 GM in 0.9 % Sodium Chloride Mini Bag 100 ML IVPB SCH ×2 (05:39→17:00)
[2019-12-28 06:34] LABS: Basophils # 0.1 K/mcL (0.0-0.2); Basophils % 0.9 %; Eosinophils # 0.6 K/mcL (0.0-0.6); Eosinophils % 6.9 %; Hematocrit 24.7 % (37.5-50.1); Hemoglobin 7.7 g/dL (12.9-16.9); Immature Granulocytes % 2.8 % (0-4); Lymphocytes # 1.6 K/mcL (0.6-4.6); Lymphocytes % 16.9 %; Mean Corpuscular HGB Conc 31.2 g/dL (31.6-35.5); Mean Corpuscular Hemoglobin 28.4 pg (28.0-33.3); Mean Corpuscular Volume 91.1 fL (83.0-100.0); Mean Platelet Volume 9.8 fL (9.4-12.4); Monocytes % 10.4 %; Neutrophils # 5.7 K/mcL (1.6-8.9); Platelet Count 224 K/mcL (140-400); Red Blood Count 2.71 M/mcL (4.19-5.50); Red Cell Distribution Width 14.5 % (11.5-14.5); Segmented Neutrophils % 62.1 %; White Blood Count 9.2 K/mcL (4.3-11.1)
[2019-12-28 06:56] LABS: Calcium 8.3 mg/dL (8.6-10.3); Potassium 4.6 mEq/L (3.5-5.1)
[2019-12-28] MEDS: Insulin LISPRO 300 UNITS/3 ML VIAL SQ SCH ×3 (07:18→17:00)
[2019-12-28] MEDS: Apixaban 5 MG TABLET PO SCH ×2 (07:28→21:14)
[2019-12-28] MEDS: hydrALAZINE 25 MG TABLET PO SCH ×3 (07:29→23:06)
[2019-12-28] MEDS: carvediloL 6.25 MG TABLET PO SCH ×2 (07:29→17:00)
[2019-12-28] MEDS: (Febuxostat [Uloric] 40 MG) PO SCH (07:29)
[2019-12-28] MEDS: calcitrioL 0.25 MCG CAPSULE PO SCH (07:29)
[2019-12-28] MEDS: Insulin DETEMIR 100 UNIT/ML X5UNITS SQ SCH ×2 (08:06→21:14)
[2019-12-28] MEDS ORDERED: amLODIPine 5 MG TABLET PO SCH (09:00)
[2019-12-28] MEDS: Latanoprost 2.5 ML BOTTLE BOTH EYES SCH (21:14)
[2019-12-29 05:08] LABS: Basophils # 0.1 K/mcL (0.0-0.2); Basophils % 0.6 %; Eosinophils # 0.7 K/mcL (0.0-0.6); Eosinophils % 7.1 %; Hematocrit 24.8 % (37.5-50.1); Hemoglobin 7.8 g/dL (12.9-16.9); Immature Granulocytes % 2.4 % (0-4); Lymphocytes # 1.7 K/mcL (0.6-4.6); Lymphocytes % 16.1 %; Mean Corpuscular HGB Conc 31.5 g/dL (31.6-35.5); Mean Corpuscular Volume 92.2 fL (83.0-100.0); Mean Platelet Volume 9.9 fL (9.4-12.4); Monocytes % 9.7 %; Neutrophils # 6.6 K/mcL (1.6-8.9); Platelet Count 215 K/mcL (140-400); Red Blood Count 2.69 M/mcL (4.19-5.50); Red Cell Distribution Width 14.6 % (11.5-14.5); Segmented Neutrophils % 64.1 %; White Blood Count 10.3 K/mcL (4.3-11.1)
[2019-12-29] MEDS: Piperacillin/Tazobactam 3.375 GM in 0.9 % Sodium Chloride Mini Bag 100 ML IVPB SCH ×2 (05:22→17:21)
[2019-12-29 05:25] LABS: Calcium 8.5 mg/dL (8.6-10.3); Potassium 4.9 mEq/L (3.5-5.1)
[2019-12-29] MEDS: hydrALAZINE 25 MG TABLET PO SCH ×3 (08:59→23:06)
[2019-12-29] MEDS: calcitrioL 0.25 MCG CAPSULE PO SCH (08:59)
[2019-12-29] MEDS: amLODIPine 5 MG TABLET PO SCH (09:00)
[2019-12-29] MEDS: carvediloL 6.25 MG TABLET PO SCH ×2 (09:00→16:01)
[2019-12-29] MEDS: Insulin LISPRO 300 UNITS/3 ML VIAL SQ SCH ×4 (09:01→17:17)
[2019-12-29] MEDS: Apixaban 5 MG TABLET PO SCH (09:01)
[2019-12-29] MEDS: Insulin DETEMIR 100 UNIT/ML X5UNITS SQ SCH ×2 (09:01→21:49)
[2019-12-29] MEDS: (Febuxostat [Uloric] 40 MG) PO SCH (09:02)
[2019-12-29] MEDS ORDERED: Furosemide 40 MG TABLET PO SCH (18:00)
[2019-12-29] MEDS: Acetaminophen 325 MG TABLET PO PRN (21:48)
[2019-12-29] MEDS: Latanoprost 2.5 ML BOTTLE BOTH EYES SCH (21:48)
[2019-12-30 02:49] LABS: Adenovirus Not Detected (Not Detect); Bordetella Pertussis Not Detected (Not Detect); Chlamydophila pneumoniae Not Detected (Not Detect); Coronavirus 229E Not Detected (Not Detect); Coronavirus HKU1 Not Detected (Not Detect); Coronavirus NL63 Not Detected (Not Detect); Coronavirus OC43 Not Detected (Not Detect); Human Metapneumovirus Not Detected (Not Detect); Human Rhinovirus/Enterovirus Not Detected (Not Detect); Influenza A Subtype 2009 H1 Not Detected (Not Detect); Influenza B Not Detected (Not Detect); Mycoplasma pneumoniae Not Detected (Not Detect); Parainfluenza Virus 1 Not Detected (Not Detect); Parainfluenza Virus 2 Not Detected (Not Detect); Parainfluenza Virus 3 Not Detected (Not Detect); Parainfluenza Virus 4 Not Detected (Not Detect); Respiratory Syncytial Virus Not Detected (Not Detect); SARS-CoV-2 Not Detected (Not Detect)
[2019-12-30] MEDS: Piperacillin/Tazobactam 3.375 GM in 0.9 % Sodium Chloride Mini Bag 100 ML IVPB SCH (06:02)
[2019-12-30 06:57] LABS: Basophils # 0.1 K/mcL (0.0-0.2); Basophils % 0.6 %; Eosinophils # 0.8 K/mcL (0.0-0.6); Eosinophils % 8.6 %; Hematocrit 24.6 % (37.5-50.1); Hemoglobin 7.5 g/dL (12.9-16.9); Immature Granulocytes % 2.1 % (0-4); Lymphocytes # 1.6 K/mcL (0.6-4.6); Lymphocytes % 17.6 %; Mean Corpuscular HGB Conc 30.5 g/dL (31.6-35.5); Mean Corpuscular Volume 91.8 fL (83.0-100.0); Mean Platelet Volume 9.3 fL (9.4-12.4); Monocytes # 0.9 K/mcL (0.0-1.3); Monocytes % 9.1 %; Neutrophils # 5.8 K/mcL (1.6-8.9); Platelet Count 196 K/mcL (140-400); Red Blood Count 2.68 M/mcL (4.19-5.50); Red Cell Distribution Width 14.6 % (11.5-14.5); White Blood Count 9.3 K/mcL (4.3-11.1)
[2019-12-30 07:18] LABS: Calcium 8.8 mg/dL (8.6-10.3)
[2019-12-30] MEDS: hydrALAZINE 25 MG TABLET PO SCH ×2 (09:18→16:35)
[2019-12-30] MEDS: calcitrioL 0.25 MCG CAPSULE PO SCH (09:18)
[2019-12-30] MEDS: carvediloL 6.25 MG TABLET PO SCH ×3 (09:18→16:36)
[2019-12-30] MEDS: amLODIPine 5 MG TABLET PO SCH (09:18)
[2019-12-30] MEDS: (Febuxostat [Uloric] 40 MG) PO SCH (09:19)
[2019-12-30] MEDS: Insulin LISPRO 300 UNITS/3 ML VIAL SQ SCH ×3 (09:19→16:37)
[2019-12-30] MEDS: Insulin DETEMIR 100 UNIT/ML X5UNITS SQ SCH ×2 (09:19→20:29)
[2019-12-30] MEDS ORDERED: Heparin 1,000 UNITS/500 mL 500 ML ONE (18:44)
[2019-12-30] MEDS ORDERED: ceFAZolin 1,000 MG, Sodium Chloride IRRigation 1,000 ML IR ONE (18:55)
[2019-12-30] MEDS: Latanoprost 2.5 ML BOTTLE BOTH EYES SCH (20:29)
[2019-12-30] MEDS ORDERED: *HR* Propofol 200 MG/20 ML VIAL IVP ONE (21:31)
[2019-12-30] MEDS ORDERED: Lidocaine -MPF 2% 2 ML VIAL ONE (21:31)
[2019-12-30] MEDS ORDERED: *HR* HYDROMORPHONE 2 MG/ML VIAL ONE (21:31)
[2019-12-30] MEDS ORDERED: Dexamethasone 4 MG/ML VIAL ONE (21:31)
[2019-12-30] MEDS ORDERED: Ondansetron 4 MG/2 ML VIAL ONE (21:31)
[2019-12-30] MEDS ORDERED: *HR* Succinylcholine 200 MG/10 ML VIAL IVP ONE (21:31)
[2019-12-30] MEDS ORDERED: *HR* FentaNYL (PF) 100 MCG/2 ML VIAL ONE (21:31)
[2019-12-30] MEDS ORDERED: *HR* FentaNYL (PF) 100 MCG/2 ML VIAL IVP PRN (22:52)
[2019-12-30] MEDS ORDERED: *HR* Metoprolol 5 MG/5 ML VIAL IVP PRN (22:52)
[2019-12-31] MEDS ORDERED: Acetaminophen 325 MG TABLET PO PRN (00:49)
[2019-12-31] MEDS ORDERED: Nitroglycerin 0.4 MG TAB.SUBL SL PRN (00:49)
[2019-12-31] MEDS ORDERED: Artificial Tears SOLN 15 ML BOTTLE BOTH EYES PRN (00:49)
[2019-12-31] MEDS ORDERED: *HR* Dextrose 50 % in Water (Vial) 50 ML VIAL IVP PRN (00:49)
[2019-12-31] MEDS ORDERED: D5% in Water 1,000 ML IVC PRN (00:49)
[2019-12-31] MEDS ORDERED: *HR* FentaNYL (PF) 100 MCG/2 ML VIAL IVP PRN (00:49)
[2019-12-31] MEDS ORDERED: *HR* Metoprolol 5 MG/5 ML VIAL IVP PRN (00:49)
[2019-12-31] MEDS ORDERED: Dextrose Gel 15 GM/37.5 ML TUBE PO PRN ×2 (00:49)
[2019-12-31] MEDS ORDERED: Naloxone 0.4 MG/ML INJ IVP PRN (00:49)
[2019-12-31] MEDS ORDERED: ceFAZolin 1,000 MG, Sodium Chloride IRRigation 1,000 ML IR ONE (00:49)
[2019-12-31] MEDS ORDERED: Ondansetron 4 MG/2 ML VIAL IVP PRN (00:49)
[2019-12-31] MEDS ORDERED: *HR* Labetalol 20 MG/4 ML SYRINGE IVP PRN (00:49)
[2019-12-31] MEDS: hydrALAZINE 25 MG TABLET PO SCH ×4 (00:50→23:38)
[2019-12-31] MEDS: 0.9 % Sodium Chloride 1,000 ML IVC SCH ×2 (01:35→17:44)
[2019-12-31] MEDS ORDERED: Ondansetron 4 MG/2 ML VIAL ONE (01:52)
[2019-12-31] MEDS: *HR* OxyCODONE/APAP 5/325 TABLET PO PRN ×3 (06:08→20:03)
[2019-12-31 07:15] LABS: Basophils # 0.1 K/mcL (0.0-0.2); Basophils % 0.4 %; Eosinophils # 0.2 K/mcL (0.0-0.6); Eosinophils % 1.8 %; Hematocrit 25.2 % (37.5-50.1); Hemoglobin 7.9 g/dL (12.9-16.9); Immature Granulocytes % 1.6 % (0-4); Lymphocytes # 1.4 K/mcL (0.6-4.6); Lymphocytes % 12.1 %; Mean Corpuscular HGB Conc 31.3 g/dL (31.6-35.5); Mean Corpuscular Hemoglobin 28.6 pg (28.0-33.3); Mean Corpuscular Volume 91.3 fL (83.0-100.0); Mean Platelet Volume 9.9 fL (9.4-12.4); Monocytes # 0.8 K/mcL (0.0-1.3); Monocytes % 6.4 %; Neutrophils # 9.3 K/mcL (1.6-8.9); Platelet Count 198 K/mcL (140-400); Red Blood Count 2.76 M/mcL (4.19-5.50); Red Cell Distribution Width 14.4 % (11.5-14.5); Segmented Neutrophils % 77.7 %
[2019-12-31 07:16] LABS: Calcium 8.7 mg/dL (8.6-10.3); Potassium 5.3 mEq/L (3.5-5.1)
[2019-12-31] MEDS ORDERED: *HR* OxyCODONE ER (12 HR) 10 MG TABLET PO SCH (08:00)
[2019-12-31] MEDS: Insulin LISPRO 300 UNITS/3 ML VIAL SQ SCH ×3 (09:39→17:42)
[2019-12-31] MEDS: calcitrioL 0.25 MCG CAPSULE PO SCH (09:39)
[2019-12-31] MEDS: carvediloL 6.25 MG TABLET PO SCH ×2 (09:40→17:43)
[2019-12-31] MEDS: amLODIPine 5 MG TABLET PO SCH (09:41)
[2019-12-31] MEDS: Insulin DETEMIR 100 UNIT/ML X5UNITS SQ SCH ×2 (09:42→20:03)
[2019-12-31] MEDS: Budesonide/Formoterol 160/4.5 1 PUFF INH IH SCH ×2 (10:48→21:27)
[2019-12-31] MEDS: Latanoprost 2.5 ML BOTTLE BOTH EYES SCH (20:04)
[2020-01-01] MEDS: *HR* OxyCODONE/APAP 5/325 TABLET PO PRN (07:46)
[2020-01-01] MEDS: hydrALAZINE 25 MG TABLET PO SCH ×3 (07:47→23:46)
[2020-01-01] MEDS: carvediloL 6.25 MG TABLET PO SCH ×2 (07:48→16:07)
[2020-01-01] MEDS: calcitrioL 0.25 MCG CAPSULE PO SCH (07:48)
[2020-01-01] MEDS: amLODIPine 5 MG TABLET PO SCH (07:48)
[2020-01-01] MEDS: Budesonide/Formoterol 160/4.5 1 PUFF INH IH SCH ×2 (07:59→21:44)
[2020-01-01] MEDS: Ipratropium/Albuterol Neb 3 ML IH PRN (07:59)
[2020-01-01] MEDS: Insulin LISPRO 300 UNITS/3 ML VIAL SQ SCH ×3 (10:16→17:02)
[2020-01-01] MEDS: Insulin DETEMIR 100 UNIT/ML X5UNITS SQ SCH ×2 (10:16→21:11)
[2020-01-01] MEDS: 0.9 % Sodium Chloride 1,000 ML IVC SCH (10:20)
[2020-01-01] MEDS: Latanoprost 2.5 ML BOTTLE BOTH EYES SCH (21:12)
[2020-01-02] MEDS: 0.9 % Sodium Chloride 1,000 ML IVC SCH (02:50)
[2020-01-02] MEDS: Ipratropium/Albuterol Neb 3 ML IH PRN ×3 (04:21→19:56)
[2020-01-02] MEDS: Budesonide/Formoterol 160/4.5 1 PUFF INH IH SCH ×2 (07:35→19:55)
[2020-01-02] MEDS: Insulin LISPRO 300 UNITS/3 ML VIAL SQ SCH ×3 (08:47→18:13)
[2020-01-02] MEDS: amLODIPine 5 MG TABLET PO SCH (08:54)
[2020-01-02] MEDS: Insulin DETEMIR 100 UNIT/ML X5UNITS SQ SCH ×2 (08:54→21:26)
[2020-01-02] MEDS: calcitrioL 0.25 MCG CAPSULE PO SCH (08:54)
[2020-01-02] MEDS: hydrALAZINE 25 MG TABLET PO SCH ×2 (08:55→18:13)
[2020-01-02] MEDS: carvediloL 6.25 MG TABLET PO SCH ×2 (08:55→18:13)
[2020-01-02] MEDS: Apixaban 5 MG TABLET PO SCH (21:24)
[2020-01-02] MEDS: Latanoprost 2.5 ML BOTTLE BOTH EYES SCH (21:43)
[2020-01-03] MEDS: hydrALAZINE 25 MG TABLET PO SCH ×4 (00:31→23:31)
[2020-01-03] MEDS: Insulin LISPRO 300 UNITS/3 ML VIAL SQ SCH ×3 (07:28→17:02)
[2020-01-03] MEDS: Ipratropium/Albuterol Neb 3 ML IH PRN ×2 (07:36→20:44)
[2020-01-03] MEDS: Budesonide/Formoterol 160/4.5 1 PUFF INH IH SCH ×2 (07:36→20:44)
[2020-01-03] MEDS: carvediloL 6.25 MG TABLET PO SCH ×2 (08:16→15:45)
[2020-01-03] MEDS: amLODIPine 5 MG TABLET PO SCH (08:17)
[2020-01-03] MEDS: Apixaban 5 MG TABLET PO SCH (08:18)
[2020-01-03] MEDS: Insulin DETEMIR 100 UNIT/ML X5UNITS SQ SCH ×2 (08:20→20:59)
[2020-01-03] MEDS: calcitrioL 0.25 MCG CAPSULE PO SCH (08:21)
[2020-01-03 08:36] LABS: Basophils % 0.4 %; Eosinophils # 0.4 K/mcL (0.0-0.6); Eosinophils % 3.3 %; Hematocrit 21.2 % (37.5-50.1); Hemoglobin 6.8 g/dL (12.9-16.9); Immature Granulocytes % 2.2 % (0-4); Lymphocytes # 1.4 K/mcL (0.6-4.6); Lymphocytes % 13.5 %; Mean Corpuscular HGB Conc 32.1 g/dL (31.6-35.5); Mean Corpuscular Hemoglobin 29.4 pg (28.0-33.3); Mean Corpuscular Volume 91.8 fL (83.0-100.0); Mean Platelet Volume 9.4 fL (9.4-12.4); Monocytes # 0.9 K/mcL (0.0-1.3); Monocytes % 8.5 %; Neutrophils # 7.7 K/mcL (1.6-8.9); Platelet Count 146 K/mcL (140-400); Red Blood Count 2.31 M/mcL (4.19-5.50); Red Cell Distribution Width 14.6 % (11.5-14.5); Segmented Neutrophils % 72.1 %; White Blood Count 10.7 K/mcL (4.3-11.1)
[2020-01-03 08:52] LABS: Calcium 8.6 mg/dL (8.6-10.3)
[2020-01-03] MEDS ORDERED: 0.9 % Sodium Chloride 250 ML IVC SCH (09:30)
[2020-01-03 15:20] LABS: ABG Base Excess 1 mEq/L (-2 to 3); ABG HCO3 25 mEq/L (21-27); ABG Oxygen Saturation 97 % (95-98); ABG PCO2 38 mmHg (35-45); ABG PH 7.42 pH Units (7.32-7.45); ABG PO2 84 mmHg (85-104); ABG TCO2 26 mEq/L (20-26)
[2020-01-03] MEDS ORDERED: Bumetanide 1 MG/4 ML VIAL IVP ONE (17:57)
[2020-01-03 18:54] LABS: Hemoglobin 7.8 g/dL (12.9-16.9)
[2020-01-03] MEDS: Latanoprost 2.5 ML BOTTLE BOTH EYES SCH (20:59)
[2020-01-04 04:41] LABS: Basophils # 0.1 K/mcL (0.0-0.2); Basophils % 0.6 %; Eosinophils # 0.5 K/mcL (0.0-0.6); Eosinophils % 4.8 %; Hematocrit 23.5 % (37.5-50.1); Hemoglobin 7.7 g/dL (12.9-16.9); Lymphocytes # 1.3 K/mcL (0.6-4.6); Lymphocytes % 12.5 %; Mean Corpuscular HGB Conc 32.8 g/dL (31.6-35.5); Mean Corpuscular Hemoglobin 29.8 pg (28.0-33.3); Mean Corpuscular Volume 91.1 fL (83.0-100.0); Mean Platelet Volume 9.4 fL (9.4-12.4); Monocytes # 0.8 K/mcL (0.0-1.3); Monocytes % 8.4 %; Neutrophils # 7.2 K/mcL (1.6-8.9); Platelet Count 140 K/mcL (140-400); Red Blood Count 2.58 M/mcL (4.19-5.50); Red Cell Distribution Width 14.6 % (11.5-14.5); Segmented Neutrophils % 71.7 %
[2020-01-04 04:45] LABS: Calcium 8.6 mg/dL (8.6-10.3); Potassium 4.9 mEq/L (3.5-5.1)
[2020-01-04 04:49] LABS: Magnesium 2.1 mg/dL (1.6-2.6)
[2020-01-04] MEDS: Budesonide/Formoterol 160/4.5 1 PUFF INH IH SCH ×2 (07:19→20:00)
[2020-01-04] MEDS: Insulin LISPRO 300 UNITS/3 ML VIAL SQ SCH ×3 (08:48→17:17)
[2020-01-04] MEDS: hydrALAZINE 25 MG TABLET PO SCH ×3 (08:48→23:47)
[2020-01-04] MEDS: amLODIPine 5 MG TABLET PO SCH (08:48)
[2020-01-04] MEDS: carvediloL 6.25 MG TABLET PO SCH (08:49)
[2020-01-04] MEDS: Bumetanide 1 MG/4 ML VIAL IVP SCH (08:49)
[2020-01-04] MEDS: calcitrioL 0.25 MCG CAPSULE PO SCH (08:50)
[2020-01-04] MEDS: Insulin DETEMIR 100 UNIT/ML X5UNITS SQ SCH ×2 (09:04→22:09)
[2020-01-04] MEDS: carvediloL 25 MG TABLET PO SCH (17:16)
[2020-01-04] MEDS: Latanoprost 2.5 ML BOTTLE BOTH EYES SCH (22:09)
[2020-01-05 03:01] LABS: Basophils # 0.1 K/mcL (0.0-0.2); Basophils % 0.6 %; Eosinophils # 0.5 K/mcL (0.0-0.6); Eosinophils % 5.5 %; Hematocrit 21.6 % (37.5-50.1); Hemoglobin 6.9 g/dL (12.9-16.9); Immature Granulocytes % 1.1 % (0-4); Lymphocytes # 1.5 K/mcL (0.6-4.6); Lymphocytes % 16.4 %; Mean Corpuscular HGB Conc 31.9 g/dL (31.6-35.5); Mean Corpuscular Hemoglobin 29.1 pg (28.0-33.3); Mean Corpuscular Volume 91.1 fL (83.0-100.0); Mean Platelet Volume 9.6 fL (9.4-12.4); Monocytes % 10.8 %; Neutrophils # 5.9 K/mcL (1.6-8.9); Platelet Count 120 K/mcL (140-400); Red Blood Count 2.37 M/mcL (4.19-5.50); Red Cell Distribution Width 14.7 % (11.5-14.5); Segmented Neutrophils % 65.6 %; White Blood Count 9.1 K/mcL (4.3-11.1)
[2020-01-05 03:21] LABS: Calcium 8.4 mg/dL (8.6-10.3); Phosphorous 4.3 mg/dL (2.7-4.5); Potassium 5.4 mEq/L (3.5-5.1)
[2020-01-05] MEDS ORDERED: 0.9 % Sodium Chloride 250 ML IVC SCH (07:30)
[2020-01-05] MEDS: Budesonide/Formoterol 160/4.5 1 PUFF INH IH SCH ×2 (08:06→21:44)
[2020-01-05] MEDS: Insulin LISPRO 300 UNITS/3 ML VIAL SQ SCH ×3 (08:43→16:18)
[2020-01-05] MEDS: hydrALAZINE 25 MG TABLET PO SCH ×3 (08:44→23:27)
[2020-01-05] MEDS: carvediloL 25 MG TABLET PO SCH ×2 (08:45→17:46)
[2020-01-05] MEDS: calcitrioL 0.25 MCG CAPSULE PO SCH (08:45)
[2020-01-05] MEDS: amLODIPine 5 MG TABLET PO SCH (08:47)
[2020-01-05] MEDS: Bumetanide 1 MG/4 ML VIAL IVP SCH ×2 (08:47→20:49)
[2020-01-05] MEDS: Insulin DETEMIR 100 UNIT/ML X5UNITS SQ SCH ×2 (08:48→20:50)
[2020-01-05] MEDS: Ipratropium/Albuterol Neb 3 ML IH PRN (09:41)
[2020-01-05 20:11] LABS: Hematocrit 24.8 % (37.5-50.1); Hemoglobin 8.1 g/dL (12.9-16.9)
[2020-01-05] MEDS: Latanoprost 2.5 ML BOTTLE BOTH EYES SCH (21:00)
[2020-01-06 06:50] LABS: Hematocrit 25.3 % (37.5-50.1); Hemoglobin 8.2 g/dL (12.9-16.9)
[2020-01-06 07:04] LABS: Calcium 8.7 mg/dL (8.6-10.3); Phosphorous 4.3 mg/dL (2.7-4.5); Potassium 5.2 mEq/L (3.5-5.1)
[2020-01-06] MEDS: Budesonide/Formoterol 160/4.5 1 PUFF INH IH SCH (07:48)
[2020-01-06] MEDS: calcitrioL 0.25 MCG CAPSULE PO SCH (08:00)
[2020-01-06] MEDS: carvediloL 25 MG TABLET PO SCH (08:00)
[2020-01-06] MEDS: hydrALAZINE 25 MG TABLET PO SCH (08:01)
[2020-01-06] MEDS: Insulin DETEMIR 100 UNIT/ML X5UNITS SQ SCH (08:02)
[2020-01-06] MEDS: Bumetanide 1 MG/4 ML VIAL IVP SCH (08:02)
[2020-01-06] MEDS: amLODIPine 5 MG TABLET PO SCH (08:02)
[2020-01-06] MEDS: Insulin LISPRO 300 UNITS/3 ML VIAL SQ SCH ×2 (08:03→11:31)
[2020-01-06 11:09] VITALS: BP 148/63
[2020-01-06 12:50] LABS: Adenovirus Not Detected (Not Detect); Bordetella Pertussis Not Detected (Not Detect); Chlamydophila pneumoniae Not Detected (Not Detect); Coronavirus 229E Not Detected (Not Detect); Coronavirus HKU1 Not Detected (Not Detect); Coronavirus NL63 Not Detected (Not Detect); Coronavirus OC43 Not Detected (Not Detect); Human Metapneumovirus Not Detected (Not Detect); Human Rhinovirus/Enterovirus Not Detected (Not Detect); Influenza A Subtype 2009 H1 Not Detected (Not Detect); Influenza B Not Detected (Not Detect); Mycoplasma pneumoniae Not Detected (Not Detect); Parainfluenza Virus 1 Not Detected (Not Detect); Parainfluenza Virus 2 Not Detected (Not Detect); Parainfluenza Virus 3 Not Detected (Not Detect); Parainfluenza Virus 4 Not Detected (Not Detect); Respiratory Syncytial Virus Not Detected (Not Detect); SARS-CoV-2 Not Detected (Not Detect)
== END 2020-01-06 14:37 | DRG 475 ==
LOC: 3ANU → SUATTDRO 18:28
PROVIDERS: ADMIT Internal Medicine; ATTEND Internal Medicine

== ENCOUNTER 2021-04-15 11:08 | Inpatient (IN) ==
[2021-04-15 12:16] LABS: Basophils # 0.1 K/mcL (0.0-0.2); Basophils % 1.1 %; Eosinophils # 0.2 K/mcL (0.0-0.6); Eosinophils % 3.8 %; Hematocrit 30.9 % (37.5-50.1); Immature Granulocytes % 4.9 % (0-4); Lymphocytes # 1.6 K/mcL (0.6-4.6); Lymphocytes % 25.4 %; Mean Corpuscular HGB Conc 32.4 g/dL (31.6-35.5); Mean Corpuscular Hemoglobin 33.7 pg (28.0-33.3); Mean Platelet Volume 10.2 fL (9.4-12.4); Monocytes # 0.6 K/mcL (0.0-1.3); Monocytes % 8.9 %; Neutrophils # 3.5 K/mcL (1.6-8.9); Platelet Count 164 K/mcL (140-400); Red Blood Count 2.97 M/mcL (4.19-5.50); Red Cell Distribution Width 14.8 % (11.5-14.5); Segmented Neutrophils % 55.9 %; White Blood Count 6.3 K/mcL (4.3-11.1)
[2021-04-15 12:55] LABS: Calcium 8.5 mg/dL (8.6-10.3); Potassium 5.1 mEq/L (3.5-5.1); Troponin I 0.11 ng/mL (< 0.04)
[2021-04-15] MEDS ORDERED: *HR* Heparin 5,000 UNIT/ML VIAL IVP ONE (13:49)
[2021-04-15] MEDS ORDERED: *HR* Heparin 5,000 UNIT/ML VIAL IVP PRN (13:49)
[2021-04-15] MEDS: Heparin 25,000UNIT/250ML 1/2NS 25,000 UNIT/250 ML IV.SOLN IVC SCH (14:11)
[2021-04-15] MEDS ORDERED: Naloxone 0.4 MG/ML INJ IVP PRN (14:13)
[2021-04-15] MEDS ORDERED: Ondansetron 4 MG/2 ML VIAL IVP PRN (14:18)
[2021-04-15 14:22] LABS: Hematocrit 31.7 % (37.5-50.1); Hemoglobin 10.2 g/dL (12.9-16.9); Mean Corpuscular HGB Conc 32.2 g/dL (31.6-35.5); Mean Corpuscular Hemoglobin 33.7 pg (28.0-33.3); Mean Corpuscular Volume 104.6 fL (83.0-100.0); Mean Platelet Volume 10.1 fL (9.4-12.4); Platelet Count 175 K/mcL (140-400); Red Blood Count 3.03 M/mcL (4.19-5.50); Red Cell Distribution Width 14.7 % (11.5-14.5); White Blood Count 6.6 K/mcL (4.3-11.1)
[2021-04-15] MEDS ORDERED: *HR* HYDROcodone/Acet 5/325 mg TABLET PO PRN (14:26)
[2021-04-15] MEDS ORDERED: Nitroglycerin 0.4 MG TAB.SUBL SL PRN (14:34)
[2021-04-15] MEDS ORDERED: Ipratropium/Albuterol Neb 3 ML IH PRN (14:35)
[2021-04-15] MEDS ORDERED: Metoprolol XL (24 HR) Succ 25 MG TAB.ER.24H PO SCH (14:45)
[2021-04-15 14:48] LABS: Heparin anti-factor XA UFH 0.34 IU/mL (0.30-0.70); Prothrombin Time 11.4 Seconds (9.4-12.1)
[2021-04-15] MEDS ORDERED: D5% in Water 1,000 ML IVC PRN (15:02)
[2021-04-15] MEDS ORDERED: Dextrose Gel 15 GM/37.5 ML TUBE PO PRN ×2 (15:02)
[2021-04-15] MEDS ORDERED: *HR* Dextrose 50 % in Water (Syg) 50 ML SYRINGE IVP PRN (15:02)
[2021-04-15 15:22] LABS: Influenza A PCR Negative (Negative); Influenza B PCR Negative (Negative); Resp. Syncytial Virus PCR Negative (Negative)
[2021-04-15 15:25] LABS: SARS-CoV-2 by PCR (In House) Negative (Negative)
[2021-04-15] MEDS ORDERED: amLODIPine 5 MG TABLET PO SCH (15:30)
[2021-04-15] MEDS: Ipratropium/Albuterol Neb 3 ML IH SCH ×2 (15:57→20:01)
[2021-04-15] MEDS: Insulin LISPRO 300 UNITS/3 ML VIAL SUBQ SCH (16:40)
[2021-04-15] MEDS ORDERED: Perflutren Lipid Microsphere 1.3 ML in 0.9 % Sodium Chloride 8.7 ML IVP PRN (16:46)
[2021-04-15] MEDS: Isosorbide MONOnitrate (24 HR) 30 MG TAB.ER.24H PO SCH (16:59)
[2021-04-15] MEDS: carvediloL 25 MG TABLET PO SCH (19:37)
[2021-04-15] MEDS: Latanoprost 2.5 ML BOTTLE BOTH EYES SCH (19:51)
[2021-04-15] MEDS: Budesonide/Formoterol 160/4.5 1 PUFF INH IH SCH (20:01)
[2021-04-15] MEDS: *HR* Heparin 5,000 UNIT/ML VIAL IVP PRN (21:06)
[2021-04-16 03:26] LABS: Hematocrit 30.6 % (37.5-50.1); Hemoglobin 9.6 g/dL (12.9-16.9); Mean Corpuscular HGB Conc 31.4 g/dL (31.6-35.5); Mean Corpuscular Hemoglobin 32.9 pg (28.0-33.3); Mean Corpuscular Volume 104.8 fL (83.0-100.0); Mean Platelet Volume 9.8 fL (9.4-12.4); Platelet Count 158 K/mcL (140-400); Red Blood Count 2.92 M/mcL (4.19-5.50); Red Cell Distribution Width 14.6 % (11.5-14.5); White Blood Count 6.4 K/mcL (4.3-11.1)
[2021-04-16] MEDS: Ipratropium/Albuterol Neb 3 ML IH SCH ×4 (03:32→20:40)
[2021-04-16 03:43] LABS: Calcium 8.8 mg/dL (8.6-10.3); Chol/HDL Ratio 2.9 (0-4.9); Magnesium 1.6 mg/dL (1.6-2.6); Phosphorous 6.1 mg/dL (2.7-4.5); Potassium 5.3 mEq/L (3.5-5.1)
[2021-04-16] MEDS ORDERED: 0.9 % Sodium Chloride 250 ML IVC PRN (07:19)
[2021-04-16] MEDS ORDERED: 0.9 % Sodium Chloride 1,000 ML PRIME SCH (07:30)
[2021-04-16] MEDS: Insulin LISPRO 300 UNITS/3 ML VIAL SUBQ SCH ×3 (08:00→17:26)
[2021-04-16] MEDS: carvediloL 25 MG TABLET PO SCH ×2 (08:17→20:07)
[2021-04-16] MEDS: amLODIPine 5 MG TABLET PO SCH (08:18)
[2021-04-16] MEDS: Isosorbide MONOnitrate (24 HR) 30 MG TAB.ER.24H PO SCH (08:18)
[2021-04-16] MEDS: allopurinoL 100 MG TABLET PO SCH (08:28)
[2021-04-16] MEDS: calcitrioL 0.25 MCG CAPSULE PO SCH (08:28)
[2021-04-16] MEDS: Aspirin Enteric Coated 81 MG Tablet PO SCH (08:28)
[2021-04-16] MEDS: Folic Acid 1 MG TABLET PO SCH (08:28)
[2021-04-16] MEDS: Finasteride 5 MG TABLET PO SCH (08:28)
[2021-04-16] MEDS: Heparin 25,000UNIT/250ML 1/2NS 25,000 UNIT/250 ML IV.SOLN IVC SCH (08:31)
[2021-04-16] MEDS: Budesonide/Formoterol 160/4.5 1 PUFF INH IH SCH ×2 (09:46→20:40)
[2021-04-16] MEDS: lisinopriL 20 MG TABLET PO SCH (12:49)
[2021-04-16] MEDS: Sennosides/Docusate Sodium TABLET PO SCH ×2 (14:46→20:07)
[2021-04-16 15:54] LABS: Hepatitis B Surface Antibody < 3.10 mIU/mL
[2021-04-16 16:04] LABS: Hepatitis B Surface Antigen Nonreactive (Nonreactive)
[2021-04-16] MEDS: *HR* Heparin 5,000 UNIT/ML VIAL IVP PRN (19:41)
[2021-04-16] MEDS: Latanoprost 2.5 ML BOTTLE BOTH EYES SCH (20:07)
[2021-04-17] MEDS: Ipratropium/Albuterol Neb 3 ML IH SCH ×4 (03:46→21:41)
[2021-04-17] MEDS: Heparin 25,000UNIT/250ML 1/2NS 25,000 UNIT/250 ML IV.SOLN IVC SCH (04:32)
[2021-04-17] MEDS: Insulin LISPRO 300 UNITS/3 ML VIAL SUBQ SCH ×3 (06:58→17:00)
[2021-04-17] MEDS: calcitrioL 0.25 MCG CAPSULE PO SCH (07:39)
[2021-04-17] MEDS: Finasteride 5 MG TABLET PO SCH (07:39)
[2021-04-17] MEDS: Folic Acid 1 MG TABLET PO SCH (07:39)
[2021-04-17] MEDS: carvediloL 25 MG TABLET PO SCH ×2 (07:39→20:09)
[2021-04-17] MEDS: Sennosides/Docusate Sodium TABLET PO SCH ×2 (07:39→20:09)
[2021-04-17] MEDS: Isosorbide MONOnitrate (24 HR) 30 MG TAB.ER.24H PO SCH (07:39)
[2021-04-17] MEDS: Aspirin Enteric Coated 81 MG Tablet PO SCH (07:39)
[2021-04-17] MEDS: allopurinoL 100 MG TABLET PO SCH (07:39)
[2021-04-17] MEDS: amLODIPine 5 MG TABLET PO SCH (07:40)
[2021-04-17] MEDS: Budesonide/Formoterol 160/4.5 1 PUFF INH IH SCH ×2 (11:07→21:41)
[2021-04-17] MEDS ORDERED: Perflutren Lipid Microsphere 1.3 ML in 0.9 % Sodium Chloride 8.7 ML IVP PRN (11:29)
[2021-04-17] MEDS: lisinopriL 20 MG TABLET PO SCH (12:03)
[2021-04-17] MEDS ORDERED: *HR* Heparin 5,000 UNIT/ML VIAL ONE (15:12)
[2021-04-17] MEDS: Latanoprost 2.5 ML BOTTLE BOTH EYES SCH (20:10)
[2021-04-18] MEDS: Ipratropium/Albuterol Neb 3 ML IH SCH ×4 (04:00→20:06)
[2021-04-18 05:42] LABS: Hematocrit 29.8 % (37.5-50.1); Hemoglobin 9.8 g/dL (12.9-16.9); Mean Corpuscular HGB Conc 32.9 g/dL (31.6-35.5); Mean Corpuscular Volume 103.5 fL (83.0-100.0); Mean Platelet Volume 10.4 fL (9.4-12.4); Nucleated Red Blood Cells 0.5 /100 WBC (0); Platelet Count 155 K/mcL (140-400); Red Blood Count 2.88 M/mcL (4.19-5.50); Red Cell Distribution Width 14.9 % (11.5-14.5); White Blood Count 6.1 K/mcL (4.3-11.1)
[2021-04-18 06:03] LABS: Potassium 4.6 mEq/L (3.5-5.1)
[2021-04-18 06:19] LABS: Eosinophils # 0.1 K/mcL (0.0-0.6); Monocytes # 0.2 K/mcL (0.0-1.3); Neutrophils # 3.8 K/mcL (1.6-8.9); Platelet Estimate Normal (Normal); Reactive Lymphocytes Present (Not Present)
[2021-04-18] MEDS ORDERED: 0.9 % Sodium Chloride 250 ML IVC PRN (07:17)
[2021-04-18] MEDS: Aspirin Enteric Coated 81 MG Tablet PO SCH (07:35)
[2021-04-18] MEDS: Folic Acid 1 MG TABLET PO SCH (07:35)
[2021-04-18] MEDS: Finasteride 5 MG TABLET PO SCH (07:35)
[2021-04-18] MEDS: Isosorbide MONOnitrate (24 HR) 30 MG TAB.ER.24H PO SCH (07:35)
[2021-04-18] MEDS: allopurinoL 100 MG TABLET PO SCH (07:35)
[2021-04-18] MEDS: calcitrioL 0.25 MCG CAPSULE PO SCH (07:35)
[2021-04-18] MEDS: Sennosides/Docusate Sodium TABLET PO SCH ×2 (07:35→19:36)
[2021-04-18] MEDS: Insulin LISPRO 300 UNITS/3 ML VIAL SUBQ SCH ×3 (07:40→16:11)
[2021-04-18] MEDS ORDERED: *HR* Heparin 10,000 UNIT/10 ML VIAL IV PRN (08:18)
[2021-04-18] MEDS: carvediloL 25 MG TABLET PO SCH ×2 (09:19→19:36)
[2021-04-18] MEDS: Budesonide/Formoterol 160/4.5 1 PUFF INH IH SCH ×2 (10:16→20:06)
[2021-04-18] MEDS ORDERED: *HR* Heparin 5,000 UNIT/ML VIAL IVP ONE (12:23)
[2021-04-18] MEDS ORDERED: *HR* Heparin 5,000 UNIT/ML VIAL IVP PRN (12:23)
[2021-04-18] MEDS: Heparin 25,000UNIT/250ML 1/2NS 25,000 UNIT/250 ML IV.SOLN IVC SCH (12:51)
[2021-04-18] MEDS: amLODIPine 5 MG TABLET PO SCH (14:35)
[2021-04-18] MEDS: lisinopriL 20 MG TABLET PO SCH (14:35)
[2021-04-18 15:07] LABS: Hematocrit 31.6 % (37.5-50.1); Hemoglobin 10.5 g/dL (12.9-16.9); Mean Corpuscular HGB Conc 33.2 g/dL (31.6-35.5); Mean Corpuscular Hemoglobin 33.8 pg (28.0-33.3); Mean Corpuscular Volume 101.6 fL (83.0-100.0); Mean Platelet Volume 10.7 fL (9.4-12.4); Platelet Count 151 K/mcL (140-400); Red Blood Count 3.11 M/mcL (4.19-5.50); Red Cell Distribution Width 14.9 % (11.5-14.5); White Blood Count 6.7 K/mcL (4.3-11.1)
[2021-04-18 15:15] LABS: INR 1.1; Prothrombin Time 12.8 Seconds (9.4-12.1)
[2021-04-18 16:03] LABS: Heparin anti-factor XA UFH 1.37 IU/mL (0.30-0.70)
[2021-04-18] MEDS: Latanoprost 2.5 ML BOTTLE BOTH EYES SCH (19:37)
[2021-04-19] MEDS: *HR* Heparin 5,000 UNIT/ML VIAL IVP PRN ×2 (00:23→23:33)
[2021-04-19] MEDS: Ipratropium/Albuterol Neb 3 ML IH SCH ×4 (04:03→20:26)
[2021-04-19 07:02] LABS: Basophils # 0.1 K/mcL (0.0-0.2); Eosinophils # 0.2 K/mcL (0.0-0.6); Eosinophils % 3.4 %; Hematocrit 32.1 % (37.5-50.1); Hemoglobin 10.4 g/dL (12.9-16.9); Immature Granulocytes % 4.9 % (0-4); Lymphocytes # 1.6 K/mcL (0.6-4.6); Lymphocytes % 23.9 %; Mean Corpuscular HGB Conc 32.4 g/dL (31.6-35.5); Mean Corpuscular Hemoglobin 33.3 pg (28.0-33.3); Mean Corpuscular Volume 102.9 fL (83.0-100.0); Mean Platelet Volume 10.8 fL (9.4-12.4); Monocytes # 0.9 K/mcL (0.0-1.3); Monocytes % 13.3 %; Neutrophils # 3.6 K/mcL (1.6-8.9); Nucleated Red Blood Cells 0.6 /100 WBC (0); Platelet Count 138 K/mcL (140-400); Red Blood Count 3.12 M/mcL (4.19-5.50); Red Cell Distribution Width 14.9 % (11.5-14.5); Segmented Neutrophils % 53.5 %; White Blood Count 6.8 K/mcL (4.3-11.1)
[2021-04-19 07:14] LABS: Calcium 9.1 mg/dL (8.6-10.3); Potassium 3.8 mEq/L (3.5-5.1)
[2021-04-19] MEDS ORDERED: Regadenoson 0.4 MG/5 ML SYRINGE IVP ONE (07:51)
[2021-04-19] MEDS: Regadenoson 0.4 MG/5 ML SYRINGE IVP ONE ×2 (08:04→08:17)
[2021-04-19] MEDS: allopurinoL 100 MG TABLET PO SCH (09:35)
[2021-04-19] MEDS: Folic Acid 1 MG TABLET PO SCH (09:36)
[2021-04-19] MEDS: Finasteride 5 MG TABLET PO SCH (09:36)
[2021-04-19] MEDS: amLODIPine 5 MG TABLET PO SCH (09:36)
[2021-04-19] MEDS: Sennosides/Docusate Sodium TABLET PO SCH ×2 (09:36→20:02)
[2021-04-19] MEDS: Insulin LISPRO 300 UNITS/3 ML VIAL SUBQ SCH ×3 (09:36→16:59)
[2021-04-19] MEDS: Aspirin Enteric Coated 81 MG Tablet PO SCH (09:36)
[2021-04-19] MEDS: Isosorbide MONOnitrate (24 HR) 30 MG TAB.ER.24H PO SCH (09:37)
[2021-04-19] MEDS: carvediloL 25 MG TABLET PO SCH ×2 (09:37→20:02)
[2021-04-19] MEDS: Heparin 25,000UNIT/250ML 1/2NS 25,000 UNIT/250 ML IV.SOLN IVC SCH (10:22)
[2021-04-19] MEDS: Budesonide/Formoterol 160/4.5 1 PUFF INH IH SCH ×2 (11:34→20:26)
[2021-04-19] MEDS: lisinopriL 20 MG TABLET PO SCH (13:27)
[2021-04-19] MEDS ORDERED: *HR* Heparin 10,000 UNIT/10 ML VIAL ONE (15:55)
[2021-04-19] MEDS ORDERED: Heparin 1,000 UNITS/500 mL 500 ML ONE (15:56)
[2021-04-19] MEDS ORDERED: ISOVUE-370 200 ML INFUS..BTL ONE (15:56)
[2021-04-19] MEDS ORDERED: Nitroglycerin 1,000 MCG/5 ML VIAL IV ONE (15:56)
[2021-04-19] MEDS ORDERED: 0.9 % Sodium Chloride 2,000 ML ONE (15:56)
[2021-04-19] MEDS ORDERED: *HR* FentaNYL (PF) 100 MCG/2 ML VIAL ONE (16:13)
[2021-04-19] MEDS ORDERED: *HR* Midazolam HCl 2 MG/2 ML VIAL ONE (16:13)
[2021-04-19] MEDS: Latanoprost 2.5 ML BOTTLE BOTH EYES SCH (20:04)
[2021-04-20] MEDS: Ipratropium/Albuterol Neb 3 ML IH SCH ×4 (03:40→19:45)
[2021-04-20 05:32] LABS: Hematocrit 28.7 % (37.5-50.1); Red Cell Distribution Width 15.1 % (11.5-14.5)
[2021-04-20 05:34] LABS: Basophils # 0.1 K/mcL (0.0-0.2); Hemoglobin 9.4 g/dL (12.9-16.9); Immature Platelets 5.2 % (1.1-6.1); Mean Corpuscular HGB Conc 32.8 g/dL (31.6-35.5); Mean Corpuscular Hemoglobin 33.7 pg (28.0-33.3); Mean Corpuscular Volume 102.9 fL (83.0-100.0); Mean Platelet Volume 10.8 fL (9.4-12.4); Nucleated Red Blood Cells 0.5 /100 WBC (0); Platelet Count 144 K/mcL (140-400); Red Blood Count 2.79 M/mcL (4.19-5.50); White Blood Count 7.7 K/mcL (4.3-11.1)
[2021-04-20 05:52] LABS: Calcium 8.7 mg/dL (8.6-10.3); Potassium 3.8 mEq/L (3.5-5.1)
[2021-04-20 07:39] LABS: Lymphocytes # 2.1 K/mcL (0.6-4.6); Monocytes # 0.1 K/mcL (0.0-1.3); Neutrophils # 5.2 K/mcL (1.6-8.9); Platelet Estimate Normal (Normal); Reactive Lymphocytes Present (Not Present)
[2021-04-20] MEDS ORDERED: 0.9 % Sodium Chloride 250 ML IVC PRN (07:49)
[2021-04-20] MEDS ORDERED: *HR* Heparin 10,000 UNIT/10 ML VIAL IV PRN (07:49)
[2021-04-20] MEDS ORDERED: 0.9 % Sodium Chloride 1,000 ML PRIME SCH (08:00)
[2021-04-20] MEDS: Sennosides/Docusate Sodium TABLET PO SCH ×2 (09:30→21:32)
[2021-04-20] MEDS: Finasteride 5 MG TABLET PO SCH (09:30)
[2021-04-20] MEDS: allopurinoL 100 MG TABLET PO SCH (09:30)
[2021-04-20] MEDS: Aspirin Enteric Coated 81 MG Tablet PO SCH (09:30)
[2021-04-20] MEDS: Folic Acid 1 MG TABLET PO SCH (09:30)
[2021-04-20] MEDS: Insulin LISPRO 300 UNITS/3 ML VIAL SUBQ SCH ×3 (09:32→17:34)
[2021-04-20] MEDS: Heparin 25,000UNIT/250ML 1/2NS 25,000 UNIT/250 ML IV.SOLN IVC SCH (09:38)
[2021-04-20] MEDS: Budesonide/Formoterol 160/4.5 1 PUFF INH IH SCH ×2 (10:28→19:45)
[2021-04-20] MEDS: carvediloL 25 MG TABLET PO SCH ×2 (11:25→21:32)
[2021-04-20] MEDS: Apixaban 5 MG TABLET PO SCH ×2 (11:25→21:31)
[2021-04-20] MEDS: Isosorbide MONOnitrate (24 HR) 30 MG TAB.ER.24H PO SCH (17:29)
[2021-04-20] MEDS: amLODIPine 5 MG TABLET PO SCH (17:30)
[2021-04-20] MEDS: lisinopriL 20 MG TABLET PO SCH (17:30)
[2021-04-20] MEDS: Latanoprost 2.5 ML BOTTLE BOTH EYES SCH (21:32)
[2021-04-21] MEDS: Ipratropium/Albuterol Neb 3 ML IH SCH ×4 (03:54→19:33)
[2021-04-21] MEDS: Sennosides/Docusate Sodium TABLET PO SCH ×2 (08:21→21:45)
[2021-04-21] MEDS: Finasteride 5 MG TABLET PO SCH (08:21)
[2021-04-21] MEDS: amLODIPine 5 MG TABLET PO SCH (08:21)
[2021-04-21] MEDS: Apixaban 5 MG TABLET PO SCH ×2 (08:21→21:46)
[2021-04-21] MEDS: Folic Acid 1 MG TABLET PO SCH (08:21)
[2021-04-21] MEDS: Isosorbide MONOnitrate (24 HR) 30 MG TAB.ER.24H PO SCH (08:21)
[2021-04-21] MEDS: Aspirin Enteric Coated 81 MG Tablet PO SCH (08:21)
[2021-04-21] MEDS: carvediloL 25 MG TABLET PO SCH ×2 (08:21→21:46)
[2021-04-21] MEDS: allopurinoL 100 MG TABLET PO SCH (08:21)
[2021-04-21] MEDS: Insulin LISPRO 300 UNITS/3 ML VIAL SUBQ SCH ×3 (08:23→17:13)
[2021-04-21] MEDS: Budesonide/Formoterol 160/4.5 1 PUFF INH IH SCH ×2 (08:41→19:33)
[2021-04-21] MEDS: lisinopriL 20 MG TABLET PO SCH (11:52)
[2021-04-21] MEDS ORDERED: hydrALAZINE 10 MG TABLET PO PRN (16:37)
[2021-04-21] MEDS: Latanoprost 2.5 ML BOTTLE BOTH EYES SCH (21:47)
[2021-04-22] MEDS: Ipratropium/Albuterol Neb 3 ML IH SCH ×2 (03:52→07:18)
[2021-04-22 06:09] LABS: Albumin 3.6 g/dL (3.5-5.7); Calcium 8.8 mg/dL (8.6-10.3); Phosphorous 4.4 mg/dL (2.7-4.5); Potassium 4.1 mEq/L (3.5-5.1)
[2021-04-22 06:51] VITALS: BP 162/71; PULSE 66; TEMP 98.5; O2SAT 95
[2021-04-22] MEDS: Budesonide/Formoterol 160/4.5 1 PUFF INH IH SCH (07:18)
[2021-04-22] MEDS: Apixaban 5 MG TABLET PO SCH (07:20)
[2021-04-22] MEDS: Finasteride 5 MG TABLET PO SCH (07:20)
[2021-04-22] MEDS: Folic Acid 1 MG TABLET PO SCH (07:20)
[2021-04-22] MEDS: Sennosides/Docusate Sodium TABLET PO SCH (07:20)
[2021-04-22] MEDS: allopurinoL 100 MG TABLET PO SCH (07:20)
[2021-04-22] MEDS: amLODIPine 5 MG TABLET PO SCH (07:20)
[2021-04-22] MEDS: Aspirin Enteric Coated 81 MG Tablet PO SCH (07:20)
[2021-04-22] MEDS: carvediloL 25 MG TABLET PO SCH (07:20)
[2021-04-22] MEDS: Isosorbide MONOnitrate (24 HR) 30 MG TAB.ER.24H PO SCH (07:20)
[2021-04-22] MEDS: Insulin LISPRO 300 UNITS/3 ML VIAL SUBQ SCH (07:24)
[2021-04-22 09:46] LABS: Influenza A PCR Negative (Negative); Influenza B PCR Negative (Negative); Resp. Syncytial Virus PCR Negative (Negative)
[2021-04-22 10:02] LABS: SARS-CoV-2 by PCR (In House) Negative (Negative)
== END 2021-04-22 11:10 | disposition home or self-care (01) | DRG 280 ==
LOC: EMEROOARM 11:08 → 2ANU 11:08 → SUATTDRO 15:17 → 2ANU 16:20 → SUATTDRO 04-18 14:36
PROVIDERS: ADMIT Internal Medicine; ATTEND Student in an Organized Health Care Education/Training Program

== ENCOUNTER 2021-11-30 14:55 | Inpatient (IN) ==
[2021-11-30] MEDS ORDERED: predniSONE 20 MG TABLET PO ONE (15:16)
[2021-11-30] MEDS ORDERED: Doxycycline 100 MG CAPSULE PO ONE (15:21)
[2021-11-30] MEDS: Ipratropium/Albuterol Neb 3 ML IH SCH ×2 (15:30→15:42)
[2021-11-30 16:00] LABS: VBG HCO3 31 mEq/L (21-27); VBG PCO2 58 mmHg (41-51); VBG PH 7.33 pH Units (7.32-7.42); VBG PO2 63 mmHg (25-50)
[2021-11-30] MEDS ORDERED: cefTRIAXone 1,000 MG in Water for inj. (sterile) 10 ML IVP ONE (16:55)
[2021-11-30] MEDS ORDERED: Ipratropium/Albuterol Neb 3 ML IH ONE (17:00)
[2021-11-30] MEDS ORDERED: Naloxone 0.4 MG/ML INJ IVP PRN (19:22)
[2021-11-30] MEDS ORDERED: Melatonin 3 MG TABLET PO PRN (19:22)
[2021-11-30] MEDS ORDERED: Ondansetron ODT 4 MG TAB.RAPDIS SL PRN (19:22)
[2021-11-30] MEDS ORDERED: Dextrose Gel 15 GM/37.5 ML TUBE PO PRN ×2 (19:36)
[2021-11-30] MEDS ORDERED: D5% in Water 1,000 ML IVC PRN (19:36)
[2021-11-30] MEDS ORDERED: *HR* Dextrose 50 % in Water (Syg) 50 ML SYRINGE IVP PRN (19:36)
[2021-11-30] MEDS ORDERED: hydrALAZINE 10 MG TABLET PO PRN (19:38)
[2021-11-30 20:18] LABS: Influenza A PCR Negative (Negative); Influenza B PCR Negative (Negative); Resp. Syncytial Virus PCR Negative (Negative)
[2021-11-30 20:19] LABS: SARS-CoV-2 by PCR (In House) Negative (Negative)
[2021-11-30] MEDS ORDERED: Benzonatate 100 MG CAPSULE PO PRN (21:10)
[2021-11-30] MEDS: Insulin DETEMIR 100 UNIT/ML X5UNITS SUBQ SCH (21:50)
[2021-11-30] MEDS: carvediloL 25 MG TABLET PO SCH (21:50)
[2021-11-30] MEDS: Insulin LISPRO 300 UNITS/3 ML VIAL SUBQ SCH (21:50)
[2021-11-30] MEDS: Apixaban 2.5 MG TABLET PO SCH (21:52)
[2021-11-30] MEDS ORDERED: Ipratropium/Albuterol Neb 3 ML IH SCH (22:00)
[2021-12-01] MEDS: MethylPREDNISolone 40 MG/ML VIAL IVP SCH ×3 (01:05→17:11)
[2021-12-01] MEDS ORDERED: Ondansetron 4 MG/2 ML VIAL IVP PRN (02:03)
[2021-12-01] MEDS ORDERED: *HR* Metoprolol 5 MG/5 ML VIAL IVP ONE (02:04)
[2021-12-01] MEDS ORDERED: Magnesium Sulfate 1 GM/102 ML PIGGYBACK IVPB ONE (02:05)
[2021-12-01] MEDS ORDERED: *HR* Labetalol 20 MG/4 ML SYRINGE IVP STA (02:10)
[2021-12-01] MEDS ORDERED: Furosemide 20 MG/2 ML VIAL IVP ONE (02:11)
[2021-12-01 02:40] LABS: Hemoglobin 13.7 g/dL (12.9-16.9); Lymphocytes % 8.5 %
[2021-12-01 02:42] LABS: Basophils # 0.1 K/mcL (0.0-0.2); Basophils % 0.9 %; Eosinophils # 0.2 K/mcL (0.0-0.6); Eosinophils % 1.9 %; Hematocrit 42.9 % (37.5-50.1); Immature Granulocytes % 1.8 % (0-4); Immature Platelets 5.8 % (1.1-6.1); Mean Corpuscular HGB Conc 31.9 g/dL (31.6-35.5); Mean Corpuscular Hemoglobin 32.2 pg (28.0-33.3); Mean Corpuscular Volume 100.9 fL (83.0-100.0); Mean Platelet Volume 10.7 fL (9.4-12.4); Monocytes # 0.3 K/mcL (0.0-1.3); Monocytes % 2.7 %; Neutrophils # 9.5 K/mcL (1.6-8.9); Platelet Count 147 K/mcL (140-400); Red Blood Count 4.25 M/mcL (4.19-5.50); Red Cell Distribution Width 14.9 % (11.5-14.5); Segmented Neutrophils % 84.2 %; White Blood Count 11.3 K/mcL (4.3-11.1)
[2021-12-01 02:54] LABS: Albumin 4.4 g/dL (3.5-5.7); Albumin/Globulin Ratio 1.4 (1.1-2.2); Bilirubin,Total 0.4 mg/dL (0.3-1.0); Calcium 9.7 mg/dL (8.6-10.3); Globulin 3.2 g/dL (2.4-3.5); Magnesium 2.1 mg/dL (1.6-2.6); Potassium 6.4 mEq/L (3.5-5.1); Total Protein 7.6 g/dL (6.4-8.9)
[2021-12-01 03:04] LABS: Troponin I 0.04 ng/mL (< 0.04)
[2021-12-01] MEDS: Levalbuterol Neb 1.25 MG/3 ML IH SCH ×4 (03:57→22:39)
[2021-12-01] MEDS: Ipratropium Neb 0.5 MG NEBULIZER IH SCH ×4 (03:57→22:39)
[2021-12-01] MEDS ORDERED: Insulin Human Regular 10 UNIT in 0.9 % Sodium Chloride 10 ML IV ONE (04:15)
[2021-12-01] MEDS ORDERED: SODIUM ZIRCONIUM CYCLOSILICATE 5 GM POWD.PACK PO ONE (04:15)
[2021-12-01] MEDS ORDERED: *HR* Dextrose 50 % in Water (Vial) 50 ML VIAL IVP ONE (04:15)
[2021-12-01] MEDS ORDERED: Morphine Sulfate 2 MG/ML SYRINGE IVP PRN (04:43)
[2021-12-01] MEDS ORDERED: Albuterol 2.5 MG/3 ML NEBULIZER IH ONE (05:17)
[2021-12-01] MEDS ORDERED: Calcium Gluconate 1gm/50mL 1 GM/50 ML BAG IVPB ONE (05:17)
[2021-12-01] MEDS ORDERED: Furosemide 20 MG/2 ML VIAL IVP SCH (09:00)
[2021-12-01] MEDS ORDERED: Furosemide 80 MG in 0.9 % Sodium Chloride 50 ML IVPB ONE (09:01)
[2021-12-01] MEDS: Aspirin 81 MG TAB.CHEW PO SCH (10:12)
[2021-12-01] MEDS: Apixaban 2.5 MG TABLET PO SCH ×2 (10:12→20:23)
[2021-12-01] MEDS: carvediloL 25 MG TABLET PO SCH ×2 (10:13→20:23)
[2021-12-01] MEDS: Insulin LISPRO 300 UNITS/3 ML VIAL SUBQ SCH ×4 (11:07→20:23)
[2021-12-01] MEDS ORDERED: 0.9 % Sodium Chloride 250 ML IVC PRN (11:23)
[2021-12-01] MEDS ORDERED: 0.9 % Sodium Chloride 2,000 ML PRIME SCH (11:30)
[2021-12-01] MEDS: Insulin DETEMIR 100 UNIT/ML X5UNITS SUBQ SCH ×2 (12:35→20:23)
[2021-12-01 14:34] LABS: Calcium 9.3 mg/dL (8.6-10.3); Potassium 3.6 mEq/L (3.5-5.1); Troponin I 1.81 ng/mL (< 0.04)
[2021-12-02] MEDS: MethylPREDNISolone 40 MG/ML VIAL IVP SCH ×2 (00:31→08:02)
[2021-12-02 00:46] LABS: Hematocrit 38.4 % (37.5-50.1); Hemoglobin 12.8 g/dL (12.9-16.9); Mean Corpuscular HGB Conc 33.3 g/dL (31.6-35.5); Mean Corpuscular Hemoglobin 32.6 pg (28.0-33.3); Mean Corpuscular Volume 97.7 fL (83.0-100.0); Platelet Count 131 K/mcL (140-400); Red Blood Count 3.93 M/mcL (4.19-5.50); Red Cell Distribution Width 14.6 % (11.5-14.5); White Blood Count 14.8 K/mcL (4.3-11.1)
[2021-12-02 01:12] LABS: Albumin 3.9 g/dL (3.5-5.7); Calcium 9.5 mg/dL (8.6-10.3); Magnesium 2.2 mg/dL (1.6-2.6); Phosphorous 5.9 mg/dL (2.7-4.5); Potassium 5.1 mEq/L (3.5-5.1)
[2021-12-02] MEDS: Ipratropium Neb 0.5 MG NEBULIZER IH SCH ×4 (04:39→21:16)
[2021-12-02] MEDS: Levalbuterol Neb 1.25 MG/3 ML IH SCH ×4 (04:39→21:16)
[2021-12-02] MEDS: Apixaban 2.5 MG TABLET PO SCH (08:04)
[2021-12-02] MEDS: Aspirin 81 MG TAB.CHEW PO SCH (08:04)
[2021-12-02] MEDS: Insulin DETEMIR 100 UNIT/ML X5UNITS SUBQ SCH ×2 (08:08→20:39)
[2021-12-02] MEDS: Insulin LISPRO 300 UNITS/3 ML VIAL SUBQ SCH ×4 (08:09→20:31)
[2021-12-02] MEDS: carvediloL 25 MG TABLET PO SCH (08:09)
[2021-12-02] MEDS ORDERED: 0.9 % Sodium Chloride 250 ML IVC PRN (10:26)
[2021-12-02] MEDS ORDERED: Ethyl Chloride Spray Bottle (104 SPRAY/BOTTLE) TP PRN (10:26)
[2021-12-02] MEDS: Metoprolol XL (24 HR) Succ 25 MG TAB.ER.24H PO SCH (11:04)
[2021-12-02] MEDS ORDERED: Heparin 25,000UNIT/250ML 1/2NS 25,000 UNIT/250 ML IV.SOLN IVC SCH ×2 (14:15→21:00)
[2021-12-02 15:08] LABS: Hematocrit 38.3 % (37.5-50.1); Hemoglobin 12.6 g/dL (12.9-16.9); Mean Corpuscular HGB Conc 32.9 g/dL (31.6-35.5); Mean Corpuscular Hemoglobin 32.5 pg (28.0-33.3); Mean Corpuscular Volume 98.7 fL (83.0-100.0); Mean Platelet Volume 10.9 fL (9.4-12.4); Platelet Count 147 K/mcL (140-400); Red Blood Count 3.88 M/mcL (4.19-5.50); Red Cell Distribution Width 14.6 % (11.5-14.5); White Blood Count 13.6 K/mcL (4.3-11.1)
[2021-12-02] MEDS ORDERED: *HR* Heparin 5,000 UNIT/ML VIAL IVP PRN ×2 (21:00)
[2021-12-02 21:20] LABS: Heparin anti-factor XA UFH 0.7 IU/mL (0.30-0.70); INR 1.2
[2021-12-03 03:18] LABS: Hematocrit 36.7 % (37.5-50.1); Mean Corpuscular HGB Conc 32.7 g/dL (31.6-35.5); Mean Corpuscular Hemoglobin 31.7 pg (28.0-33.3); Mean Corpuscular Volume 96.8 fL (83.0-100.0); Mean Platelet Volume 10.9 fL (9.4-12.4); Platelet Count 150 K/mcL (140-400); Red Blood Count 3.79 M/mcL (4.19-5.50); Red Cell Distribution Width 14.4 % (11.5-14.5)
[2021-12-03 03:33] LABS: Albumin 3.7 g/dL (3.5-5.7); Magnesium 2.2 mg/dL (1.6-2.6); Phosphorous 7.3 mg/dL (2.7-4.5); Potassium 4.8 mEq/L (3.5-5.1)
[2021-12-03 03:40] LABS: Troponin I 2.75 ng/mL (< 0.04)
[2021-12-03] MEDS: Ipratropium Neb 0.5 MG NEBULIZER IH SCH ×4 (03:57→21:55)
[2021-12-03] MEDS: Levalbuterol Neb 1.25 MG/3 ML IH SCH ×4 (03:57→21:55)
[2021-12-03] MEDS ORDERED: 0.9 % Sodium Chloride 250 ML IVC PRN (08:02)
[2021-12-03] MEDS ORDERED: Iopamidol - 370 500 ML MLS IVP ONE (08:23)
[2021-12-03] MEDS: Aspirin 81 MG TAB.CHEW PO SCH (08:43)
[2021-12-03] MEDS: Metoprolol XL (24 HR) Succ 25 MG TAB.ER.24H PO SCH (08:44)
[2021-12-03] MEDS: predniSONE 20 MG TABLET PO SCH (08:46)
[2021-12-03] MEDS: Insulin DETEMIR 100 UNIT/ML X5UNITS SUBQ SCH ×2 (08:47→21:33)
[2021-12-03] MEDS: Insulin LISPRO 300 UNITS/3 ML VIAL SUBQ SCH ×4 (08:47→21:00)
[2021-12-03] MEDS ORDERED: 0.9 % Sodium Chloride 2,000 ML ONE (13:30)
[2021-12-03] MEDS ORDERED: *HR* Heparin 10,000 UNIT/10 ML VIAL ONE (13:30)
[2021-12-03] MEDS ORDERED: Heparin 1,000 UNITS/500 mL 500 ML ONE (13:31)
[2021-12-03] MEDS ORDERED: Iopamidol - 370 200 ML INFUS..BTL ONE (13:31)
[2021-12-03] MEDS ORDERED: Nitroglycerin 1,000 MCG/5 ML VIAL IV ONE (13:31)
[2021-12-03] MEDS ORDERED: *HR* FentaNYL (PF) 100 MCG/2 ML VIAL ONE (13:36)
[2021-12-03] MEDS ORDERED: *HR* Midazolam HCl 2 MG/2 ML VIAL ONE (13:36)
[2021-12-03] MEDS: Doxycycline 100 MG in 0.9 % Sodium Chloride Mini Bag 100 ML IVPB SCH (15:43)
[2021-12-03] MEDS ORDERED: cefTRIAXone 1,000 MG in 0.9 % Sodium Chloride 10 ML IVP SCH (16:00)
[2021-12-03] MEDS ORDERED: 0.9 % Sodium Chloride 250 ML IVC ONE (16:11)
[2021-12-03] MEDS: Apixaban 2.5 MG TABLET PO SCH (20:56)
[2021-12-03 21:57] LABS: Hepatitis B Surface Antibody < 3.10 mIU/mL
[2021-12-03 22:07] LABS: Hepatitis B Surface Antigen Nonreactive (Nonreactive)
[2021-12-04] MEDS: Levalbuterol Neb 1.25 MG/3 ML IH SCH ×2 (04:27→10:41)
[2021-12-04] MEDS: Ipratropium Neb 0.5 MG NEBULIZER IH SCH ×2 (04:27→10:41)
[2021-12-04] MEDS: Doxycycline 100 MG in 0.9 % Sodium Chloride Mini Bag 100 ML IVPB SCH (04:56)
[2021-12-04 05:20] LABS: Hemoglobin 12.1 g/dL (12.9-16.9); Red Cell Distribution Width 14.6 % (11.5-14.5)
[2021-12-04 05:22] LABS: Hematocrit 36.5 % (37.5-50.1); Immature Platelets 5.6 % (1.1-6.1); Mean Corpuscular HGB Conc 33.2 g/dL (31.6-35.5); Mean Corpuscular Hemoglobin 32.5 pg (28.0-33.3); Mean Corpuscular Volume 98.1 fL (83.0-100.0); Red Blood Count 3.72 M/mcL (4.19-5.50); White Blood Count 9.8 K/mcL (4.3-11.1)
[2021-12-04 05:37] LABS: Albumin 3.6 g/dL (3.5-5.7); Calcium 8.1 mg/dL (8.6-10.3); Magnesium 2.1 mg/dL (1.6-2.6); Phosphorous 8.3 mg/dL (2.7-4.5); Potassium 5.4 mEq/L (3.5-5.1)
[2021-12-04] MEDS: Apixaban 2.5 MG TABLET PO SCH (08:39)
[2021-12-04] MEDS: predniSONE 20 MG TABLET PO SCH (08:39)
[2021-12-04] MEDS: Metoprolol XL (24 HR) Succ 25 MG TAB.ER.24H PO SCH (08:39)
[2021-12-04] MEDS: Insulin LISPRO 300 UNITS/3 ML VIAL SUBQ SCH ×2 (08:39→11:46)
[2021-12-04] MEDS: Aspirin 81 MG TAB.CHEW PO SCH (08:39)
[2021-12-04] MEDS: Insulin DETEMIR 100 UNIT/ML X5UNITS SUBQ SCH (09:32)
[2021-12-04 10:22] VITALS: BP 85/35; PULSE 62; TEMP 98.6; O2SAT 98
[2021-12-04] MEDS ORDERED: SODIUM ZIRCONIUM CYCLOSILICATE 5 GM POWD.PACK PO SCH (11:00)
[2021-12-04 12:26] LABS: Adenovirus Not Detected (Not Detect); Bordetella Pertussis Not Detected (Not Detect); Chlamydophila pneumoniae Not Detected (Not Detect); Coronavirus 229E Not Detected (Not Detect); Coronavirus HKU1 Not Detected (Not Detect); Coronavirus NL63 Not Detected (Not Detect); Coronavirus OC43 Not Detected (Not Detect); Human Metapneumovirus Not Detected (Not Detect); Human Rhinovirus/Enterovirus Not Detected (Not Detect); Influenza A Subtype 2009 H1 Not Detected (Not Detect); Influenza B Not Detected (Not Detect); Mycoplasma pneumoniae Not Detected (Not Detect); Parainfluenza Virus 1 Not Detected (Not Detect); Parainfluenza Virus 2 Not Detected (Not Detect); Parainfluenza Virus 3 Not Detected (Not Detect); Parainfluenza Virus 4 Not Detected (Not Detect); Respiratory Syncytial Virus Not Detected (Not Detect); SARS-CoV-2 Not Detected (Not Detect)
== END 2021-12-04 14:13 | DRG 190 ==
LOC: EMEROOARM 14:55 → 3BNU 14:55 → 2NENU 12-01 07:57 → SUATTDRO 12-01 18:06
PROVIDERS: ADMIT Internal Medicine; ATTEND Internal Medicine

== ENCOUNTER 2021-12-20 05:01 | Inpatient (IN) ==
[2021-12-20] MEDS ORDERED: Ipratropium/Albuterol Neb 3 ML IH ONE (05:08)
[2021-12-20] MEDS ORDERED: predniSONE 20 MG TABLET PO ONE (05:08)
[2021-12-20 06:16] LABS: Calcium 8.5 mg/dL (8.6-10.3); Potassium 4.1 mEq/L (3.5-5.1)
[2021-12-20 06:21] LABS: Basophils % 0.5 %; Eosinophils # 0.5 K/mcL (0.0-0.6); Eosinophils % 8.5 %; Hematocrit 28.4 % (37.5-50.1); Hemoglobin 8.9 g/dL (12.9-16.9); Immature Granulocytes % 0.9 % (0-4); Lymphocytes # 0.8 K/mcL (0.6-4.6); Lymphocytes % 13.3 %; Mean Corpuscular HGB Conc 31.3 g/dL (31.6-35.5); Mean Corpuscular Hemoglobin 32.6 pg (28.0-33.3); Mean Platelet Volume 10.3 fL (9.4-12.4); Monocytes # 0.4 K/mcL (0.0-1.3); Monocytes % 5.5 %; Neutrophils # 4.5 K/mcL (1.6-8.9); Platelet Count 104 K/mcL (140-400); Red Blood Count 2.73 M/mcL (4.19-5.50); Red Cell Distribution Width 14.6 % (11.5-14.5); Segmented Neutrophils % 71.3 %; White Blood Count 6.3 K/mcL (4.3-11.1)
[2021-12-20 06:22] LABS: Troponin I 0.33 ng/mL (< 0.04)
[2021-12-20] MEDS ORDERED: Naloxone 0.4 MG/ML INJ IVP PRN (07:29)
[2021-12-20] MEDS: Ipratropium/Albuterol Neb 3 ML IH SCH ×3 (11:04→22:46)
[2021-12-20] MEDS: Budesonide/Formoterol 160/4.5 1 PUFF INH IH SCH ×2 (11:04→22:46)
[2021-12-20] MEDS ORDERED: Benzonatate 100 MG CAPSULE PO PRN (16:19)
[2021-12-20] MEDS ORDERED: Ondansetron ODT 4 MG TAB.RAPDIS PO PRN (17:00)
[2021-12-20] MEDS: polyethylene glycoL 3350 17 GM POWD.PACK PO SCH (17:53)
[2021-12-20] MEDS: Sennosides/Docusate Sodium TABLET PO SCH (20:34)
[2021-12-20] MEDS: Apixaban 2.5 MG TABLET PO SCH (20:35)
[2021-12-20] MEDS: Latanoprost 2.5 ML BOTTLE BOTH EYES SCH (20:39)
[2021-12-21] MEDS: Ipratropium/Albuterol Neb 3 ML IH SCH ×4 (03:35→22:17)
[2021-12-21] MEDS ORDERED: 0.9 % Sodium Chloride 250 ML IVC PRN (09:17)
[2021-12-21] MEDS ORDERED: *HR* Heparin 10,000 UNIT/10 ML VIAL IV PRN (09:17)
[2021-12-21 09:20] LABS: Basophils % 0.2 %; Eosinophils % 0.2 %; Hematocrit 28.1 % (37.5-50.1); Hemoglobin 9.1 g/dL (12.9-16.9); Immature Granulocytes % 0.6 % (0-4); Lymphocytes # 1.1 K/mcL (0.6-4.6); Lymphocytes % 11.6 %; Mean Corpuscular HGB Conc 32.4 g/dL (31.6-35.5); Mean Corpuscular Hemoglobin 32.9 pg (28.0-33.3); Mean Corpuscular Volume 101.4 fL (83.0-100.0); Mean Platelet Volume 10.6 fL (9.4-12.4); Monocytes # 0.7 K/mcL (0.0-1.3); Monocytes % 6.9 %; Neutrophils # 7.8 K/mcL (1.6-8.9); Nucleated Red Blood Cells 0.2 /100 WBC (0); Platelet Count 118 K/mcL (140-400); Red Blood Count 2.77 M/mcL (4.19-5.50); Red Cell Distribution Width 14.5 % (11.5-14.5); Segmented Neutrophils % 80.5 %
[2021-12-21 09:23] LABS: Calcium 8.6 mg/dL (8.6-10.3); Potassium 5.8 mEq/L (3.5-5.1)
[2021-12-21 09:30] LABS: White Blood Count 9.7 K/mcL (4.3-11.1)
[2021-12-21] MEDS ORDERED: 0.9 % Sodium Chloride 2,000 ML PRIME SCH (09:30)
[2021-12-21] MEDS: Budesonide/Formoterol 160/4.5 1 PUFF INH IH SCH ×2 (09:55→22:21)
[2021-12-21] MEDS ORDERED: D5% in Water 1,000 ML IVC PRN (10:08)
[2021-12-21] MEDS ORDERED: *HR* Dextrose 50 % in Water (Syg) 50 ML SYRINGE IVP PRN (10:08)
[2021-12-21] MEDS ORDERED: Dextrose Gel 15 GM/37.5 ML TUBE PO PRN ×2 (10:08)
[2021-12-21] MEDS: predniSONE 20 MG TABLET PO SCH (10:17)
[2021-12-21] MEDS: allopurinoL 100 MG TABLET PO SCH (10:17)
[2021-12-21] MEDS: Apixaban 2.5 MG TABLET PO SCH ×2 (10:17→20:40)
[2021-12-21] MEDS: Aspirin Enteric Coated 81 MG Tablet PO SCH (10:17)
[2021-12-21] MEDS: Sennosides/Docusate Sodium TABLET PO SCH ×2 (10:17→20:40)
[2021-12-21 11:37] LABS: Troponin I 0.18 ng/mL (< 0.04)
[2021-12-21] MEDS ORDERED: Insulin DETEMIR 100 UNIT/ML X5UNITS SUBQ SCH (12:00)
[2021-12-21] MEDS: Insulin LISPRO 300 UNITS/3 ML VIAL SUBQ SCH ×2 (12:12→17:43)
[2021-12-21] MEDS: lisinopriL 20 MG TABLET PO SCH (16:45)
[2021-12-21] MEDS: Latanoprost 2.5 ML BOTTLE BOTH EYES SCH (20:41)
[2021-12-22] MEDS: Ipratropium/Albuterol Neb 3 ML IH SCH ×4 (03:46→22:20)
[2021-12-22] MEDS: Aspirin Enteric Coated 81 MG Tablet PO SCH (09:24)
[2021-12-22] MEDS: lisinopriL 20 MG TABLET PO SCH (09:24)
[2021-12-22] MEDS: allopurinoL 100 MG TABLET PO SCH (09:25)
[2021-12-22] MEDS: predniSONE 20 MG TABLET PO SCH (09:25)
[2021-12-22] MEDS: Sennosides/Docusate Sodium TABLET PO SCH ×2 (09:25→21:03)
[2021-12-22] MEDS: Insulin LISPRO 300 UNITS/3 ML VIAL SUBQ SCH ×3 (09:26→17:52)
[2021-12-22] MEDS: Apixaban 2.5 MG TABLET PO SCH ×2 (09:26→21:04)
[2021-12-22] MEDS: Budesonide/Formoterol 160/4.5 1 PUFF INH IH SCH ×2 (10:00→22:20)
[2021-12-22 16:42] LABS: Calcium 8.6 mg/dL (8.6-10.3); Potassium 5.2 mEq/L (3.5-5.1)
[2021-12-22] MEDS: polyethylene glycoL 3350 17 GM POWD.PACK PO SCH (17:52)
[2021-12-22] MEDS ORDERED: Insulin DETEMIR 100 UNIT/ML X5UNITS SUBQ SCH (21:00)
[2021-12-22] MEDS: Latanoprost 2.5 ML BOTTLE BOTH EYES SCH (21:05)
[2021-12-23] MEDS: Ipratropium/Albuterol Neb 3 ML IH SCH ×2 (04:19→10:05)
[2021-12-23] MEDS: Insulin LISPRO 300 UNITS/3 ML VIAL SUBQ SCH ×2 (07:53→12:09)
[2021-12-23] MEDS: lisinopriL 20 MG TABLET PO SCH (07:54)
[2021-12-23] MEDS: Apixaban 2.5 MG TABLET PO SCH (07:54)
[2021-12-23] MEDS: predniSONE 20 MG TABLET PO SCH (07:55)
[2021-12-23] MEDS: allopurinoL 100 MG TABLET PO SCH (07:55)
[2021-12-23] MEDS: Sennosides/Docusate Sodium TABLET PO SCH (07:55)
[2021-12-23] MEDS: Aspirin Enteric Coated 81 MG Tablet PO SCH (07:55)
[2021-12-23] MEDS: Budesonide/Formoterol 160/4.5 1 PUFF INH IH SCH (10:05)
[2021-12-23 10:58] VITALS: PULSE 74; TEMP 97.6; O2SAT 100
[2021-12-23 11:11] LABS: Hematocrit 29.8 % (37.5-50.1); Hemoglobin 9.8 g/dL (12.9-16.9); Mean Corpuscular HGB Conc 32.9 g/dL (31.6-35.5); Mean Corpuscular Hemoglobin 32.6 pg (28.0-33.3); Mean Platelet Volume 10.8 fL (9.4-12.4); Platelet Count 121 K/mcL (140-400); Red Blood Count 3.01 M/mcL (4.19-5.50); Red Cell Distribution Width 14.4 % (11.5-14.5); White Blood Count 7.6 K/mcL (4.3-11.1)
[2021-12-23 11:16] LABS: Calcium 8.1 mg/dL (8.6-10.3); Potassium 5.8 mEq/L (3.5-5.1)
[2021-12-23 12:29] VITALS: BP 120/58
[2021-12-23 13:01] LABS: Adenovirus Not Detected (Not Detect); Bordetella Pertussis Not Detected (Not Detect); Chlamydophila pneumoniae Not Detected (Not Detect); Coronavirus 229E Not Detected (Not Detect); Coronavirus HKU1 Not Detected (Not Detect); Coronavirus NL63 Not Detected (Not Detect); Coronavirus OC43 Not Detected (Not Detect); Human Metapneumovirus Not Detected (Not Detect); Human Rhinovirus/Enterovirus Not Detected (Not Detect); Influenza A Subtype 2009 H1 Not Detected (Not Detect); Influenza B Not Detected (Not Detect); Mycoplasma pneumoniae Not Detected (Not Detect); Parainfluenza Virus 1 Not Detected (Not Detect); Parainfluenza Virus 2 Not Detected (Not Detect); Parainfluenza Virus 3 Not Detected (Not Detect); Parainfluenza Virus 4 Not Detected (Not Detect); Respiratory Syncytial Virus Not Detected (Not Detect); SARS-CoV-2 Not Detected (Not Detect)
== END 2021-12-23 13:56 | disposition other institution (70) | DRG 190 ==
LOC: SUATTDRO → EMEROOARM 05:01 → 2ANU 05:01 → SUATTDRO 13:20 → 2ANU 14:32
PROVIDERS: ADMIT Internal Medicine; ATTEND Internal Medicine